=== PATIENT | female | born 1995 | race Caucasian/White ===

== ENCOUNTER → 2021-03-26 08:41 | Outpatient (CLI) | payer OTHER, SELFPAY | PROVIDERS: PCP Family Medicine; Visit Provider Family Medicine | DX: U07.1 COVID-19 (principal) | CPT/HCPCS: 87635; U0005; U0003 ==

== ENCOUNTER → 2022-09-13 | Outpatient (CLI) | payer BC, SELFPAY ==
[2022-09-13 10:44] LABS: Absolute Lymphocyte Count 1.93 X10^3/uL (0.83-4.51); Absolute Neutrophil Count 6.4 X10^3/uL (2.0-7.7); Basophil# 0.04 X10^3/uL; Basophil% 0.4 % (0-1); Eosinophil# 0.02 X10^3/uL; Eosinophils% 0.2 % (0-5); Hematocrit 42.7 % (37-47); Hemoglobin 14.1 g/dL (12.0-15.0); Lymphocyte # 1.93 X10^3/ul (0.83-4.51); Lymphocyte % 21.7 % (19-41); Mean Corpuscular Hgb 28.8 pg (27.0-32.0); Mean Corpuscular Volume 87.1 fL (81-99); Mean Platelet Vol. 9.8 fl (6.2-12.0); Monocyte# 0.55 X10^3/uL; Monocyte% 6.2 % (0-10); NRBC Flagged by Analyzer 0 % (0-5); Neutrophil # 6.35 X10^3/uL (2.7-7.7); Neutrophil % 71.3 % (47-70); Platelet Count 294 K/mm3 (150-450); RBC Distribution Width CV 12.7 % (11.6-14.6); RBC Distribution Width SD 40.3 fl (35.1-43.9); White Blood Count 8.9 K/mm3 (4.4-11.0)
[2022-09-13 12:26] LABS: HIV - WCH Non-Reactive (Nonreactive); Hepatitis B Surface Antigen Non-Reactive (Nonreactive); Hepatitis C Antibody Non-Reactive (Nonreactive); Rubella IgG Reactive (Nonreactive); Syphilis Antibodies Non-reactive
[2022-09-14 22:07] LABS: Chlamydia By Nucleic Acid AMP Negative (Negative)
[2022-09-15 09:39] LABS: Gonococcus By Nucleic Acid AMP Negative (Negative)
[2022-09-21 16:31] LABS: HPV Reflexed? NOT INDICATED
== END | disposition home or self-care (01) ==
PROVIDERS: PCP Family Medicine; Referring Provider Obstetrics & Gynecology; Visit Provider Obstetrics & Gynecology
DX: O09.90 Supervision of high risk pregnancy, unspecified, unspecified trimester (principal)
CPT/HCPCS: 36415; 85025; 86703; 86762; 86780; 86803; 86850; 86900; 86901; 87086; 87088; 87340; 87491; 87591; 88175; G0145

== ENCOUNTER → 2022-11-17 | Outpatient (CLI) | payer BC, SELFPAY ==
--- NOTE | 2022-11-17 08:03 | US_ITS ---
STUDY: SECOND AND THIRD TRIMESTER OBSTETRICAL ULTRASOUND REASON FOR EXAM: Female, 27 years old anatomy LMP: July 06, 2022. TECHNIQUE: Transabdominal and Transvaginal TECHNICAL QUALITY: Adequate. PRIOR ULTRASOUND: None. FINDINGS: There is a single intrauterine fetus. The fetus is in a cephalic presentation. There is demonstrated cardiac activity with a heart rate of 143 bpm. There is a normal amniotic fluid volume. The largest amniotic fluid pocket measures 6.5 cm x 3.4 cm. The amniotic fluid index (ALEXI) is within normal limits. The placenta is anterior in location and is not low lying. Marginal cord insertion. 1 cm from the placental edge. There are Grade 0 placental changes. The cervix measures 3.5 cm in length. The bilateral adnexal regions are normal. BIOMETRY: BPD: 4.1 cm: 18 weeks, 3 days HC: 15 cm: 18 weeks, 1 days AC: 13.2 cm: 18 weeks, 5 days FL: 2.8 cm: 18 weeks, 3 days CI: 80% FL/BPD: 67% FL/HC: FL/AC: 21% HC/AC: 1.14 age by current US: 18 weeks, 2 days. TRISTIAN by current US: April 18, 2023. Estimated weight: 246 grams, +/- 37 grams, 16 %. Age by LMP: 19 weeks, 1 days. TRISTIAN by LMP: April 12, 2023. ANATOMY: Gender: Indeterminant Cranium: Normal lateral ventricles. Normal choroid plexus. Normal cerebellum. Normal cisterna magna. Normal face, nose and lips. Chest: Normal 4-chamber heart. Abdomen/Pelvis: Normal diaphragm. Normal stomach. Normal abdominal wall. Normal cord insertion. Normal 3 vessel cord. Normal kidneys. Normal bladder. Spine: Normal cervical spine. Normal thoracic spine. Normal lumbar spine. Normal sacrum. Extremities: Normal bilateral upper extremities. Normal bilateral lower extremities. US/OB Anatomy Scan IMPRESSION: Single live uterine gestation with a mean gestational age of 18 weeks and 2 days. Marginal cord insertion. The cord is at 1 cm from the placental edge. Electronically Signed: Wes Wall MD at 9:54 EDT ,
== END | disposition home or self-care (01) ==
PROVIDERS: PCP Family Medicine; Referring Provider Nurse Practitioner Women's Health; Visit Provider Nurse Practitioner Women's Health
DX: Z34.92 Encounter for supervision of normal pregnancy, unspecified, second trimester (principal); Z3A.20 20 weeks gestation of pregnancy
CPT/HCPCS: 76805; 76817

== ENCOUNTER → 2023-01-13 | Outpatient (CLI) | payer BC, SELFPAY ==
[2023-01-13 09:04] LABS: Absolute Lymphocyte Count 1.64 X10^3/uL (0.83-4.51); Absolute Neutrophil Count 7.8 X10^3/uL (2.0-7.7); Basophil# 0.03 X10^3/uL; Basophil% 0.3 % (0-1); Eosinophil# 0.06 X10^3/uL; Eosinophils% 0.6 % (0-5); Hematocrit 33.2 % (37-47); Hemoglobin 11.2 g/dL (12.0-15.0); Lymphocyte # 1.64 X10^3/ul (0.83-4.51); Lymphocyte % 16.1 % (19-41); Mean Corp Hgb Conc 33.7 g/dL (32-36); Mean Corpuscular Hgb 30.6 pg (27.0-32.0); Mean Corpuscular Volume 90.7 fL (81-99); Mean Platelet Vol. 10.3 fl (6.2-12.0); Monocyte# 0.64 X10^3/uL; Monocyte% 6.3 % (0-10); NRBC Flagged by Analyzer 0 % (0-5); Neutrophil # 7.78 X10^3/uL (2.7-7.7); Neutrophil % 76.3 % (47-70); Platelet Count 205 K/mm3 (150-450); RBC Distribution Width CV 14.3 % (11.6-14.6); RBC Distribution Width SD 47.4 fl (35.1-43.9); Red Blood Count 3.66 M/mm3 (4.2-5.4); White Blood Count 10.2 K/mm3 (4.4-11.0)
[2023-01-13 09:28] LABS: Glucose Challenge Gest 1H 50g 106 mg/dL (70-140)
[2023-01-13 10:01] LABS: HIV - WCH Non-Reactive (Nonreactive); Syphilis Antibodies Non-reactive
== END | disposition home or self-care (01) ==
PROVIDERS: Referring Provider Advanced Practice Midwife; Visit Provider Advanced Practice Midwife
DX: O09.90 Supervision of high risk pregnancy, unspecified, unspecified trimester (principal); Z3A.00 Weeks of gestation of pregnancy not specified; Z13.1 Encounter for screening for diabetes mellitus
CPT/HCPCS: 36415; 82950; 85025; 86703; 86780

== ENCOUNTER → 2023-01-27 | Outpatient (CLI) | payer BC, SELFPAY ==
--- NOTE | 2023-01-27 07:58 | US_ITS ---
STUDY: SECOND AND THIRD TRIMESTER OBSTETRICAL ULTRASOUND - LIMITED REASON FOR EXAM: Female, 27 years old growth LMP: July 06, 2022. PRIOR ULTRASOUND: Comparison is made with prior study dated November 17, 2022. TECHNIQUE: Transabdominal TECHNICAL QUALITY: Adequate. FINDINGS: There is a single intrauterine fetus. The fetus is in a cephalic presentation. There is demonstrated cardiac activity with a heart rate of 147 bpm. There is a normal amniotic fluid volume. The largest amniotic fluid pocket measures 6.0 cm. The amniotic fluid index (ALEXI) is 18.4 cm. The placenta is anterior in location and is not low lying. The placental cord insertion is less than 2 cm from the edge of the placenta. There are Grade 0 placental changes. The cervix measures 3.4 cm in length. BIOMETRY: BPD: 7.1 cm: 28 weeks, 4 days HC: 26.3 cm: 28 weeks, 4 days AC: 24.8 cm: 29 weeks, 0 days FL: 5.4 cm: 28 weeks, 5 days Age by LMP: 29 weeks, 2 days. TRISTIAN by LMP: April 12, 2023. age by prior US: 28 weeks, 3 days. TRISTIAN by prior US: April 18, 2023. age by current US: 28 weeks, 4 days. TRISTIAN by current US: April 17, 2023. Estimated weight: 1311 grams, +/- 147 grams, 26.5 percentile. US/OB Limited With Biometrics IMPRESSION: Single live intrauterine gestation with mean gestational age of 28 weeks and 3 days. The measurements obtained today following the normal expected range. The placental cord insertion is between 1.4 and 1.9 cm from the placental edge. Electronically Signed: Wes Wall MD at 11:29 EDT ,
== END | disposition home or self-care (01) ==
LOC: OPUS 07:57
PROVIDERS: PCP Family Medicine; Referring Provider Nurse Practitioner Women's Health; Visit Provider Nurse Practitioner Women's Health
DX: O09.90 Supervision of high risk pregnancy, unspecified, unspecified trimester (principal); Z3A.00 Weeks of gestation of pregnancy not specified
CPT/HCPCS: 76816

== ENCOUNTER → 2023-02-28 | Outpatient (CLI) | payer BC, SELFPAY ==
--- NOTE | 2023-02-28 08:02 | US_ITS ---
STUDY: SECOND AND THIRD TRIMESTER OBSTETRICAL ULTRASOUND - LIMITED REASON FOR EXAM: Female, 27 years old growth -- Marginal INSERT- LESS THAN 2 CM FROM EDGE LMP: July 06, 2022. PRIOR ULTRASOUND: Comparison is made with prior study January 27, 2023. TECHNIQUE: Transabdominal TECHNICAL QUALITY: Adequate. FINDINGS: There is a single intrauterine fetus. The fetus is in a cephalic presentation. There is demonstrated cardiac activity with a heart rate of 136 bpm. There is a normal amniotic fluid volume. The largest amniotic fluid pocket measures 5.9 cm x 7.2 cm. The amniotic fluid index (ALEXI) is 18.9 cm. The placenta is anterior in location and is not low lying. There are Grade 1 placental changes. The cervix measures 3.8 cm in length. The umbilical cord inserts less than 2 cm from the edge of the placenta. BIOMETRY: BPD: 8.2 cm: 33 weeks, 0 days HC: 29.95 cm: 33 weeks, 1 days AC: 29.25 cm: 33 weeks, 2 days FL: 6.3 cm: 32 weeks, 4 days Age by LMP: 33 weeks, 6 days. TRISTIAN by LMP: April 12, 2023. age by prior US: 33 weeks, 1 days. TRISTIAN by prior US: April 17, 2023. age by current US: 32 weeks, 5 days. TRISTIAN by current US: April 20, 2023. Estimated weight: 2128 grams, +/- 319 grams, 24.2 percentile. US/OB Limited With Biometrics IMPRESSION: Single live uterine gestation with a mean gestational age of 33 weeks and 1 day. The measurements obtained today following within the normal expected range. The umbilical cord insertion is less than 2 cm from the placental edge. Electronically Signed: Wes Wall MD at 14:51 EDT ,
== END | disposition home or self-care (01) ==
PROVIDERS: PCP Family Medicine; Referring Provider Nurse Practitioner Women's Health; Visit Provider Nurse Practitioner Women's Health
DX: O09.90 Supervision of high risk pregnancy, unspecified, unspecified trimester (principal); Z3A.00 Weeks of gestation of pregnancy not specified
CPT/HCPCS: 76816

== ENCOUNTER → 2023-03-25 | Outpatient (CLI) | payer BC, SELFPAY | END | disposition home or self-care (01) | LOC: LABSPEC 11:19 | PROVIDERS: PCP Family Medicine; Referring Provider Advanced Practice Midwife; Visit Provider Advanced Practice Midwife | DX: O09.90 Supervision of high risk pregnancy, unspecified, unspecified trimester (principal); Z3A.00 Weeks of gestation of pregnancy not specified | CPT/HCPCS: 87081 ==

== ENCOUNTER → 2023-03-28 | Outpatient (CLI) | payer BC, SELFPAY ==
--- NOTE | 2023-03-28 08:02 | US_ITS ---
INDICATION: growth COMPARISON: 02/28/2023 OB ultrasound. FINDINGS: 63 grayscale ultrasound images demonstrate single live intrauterine in cephalic presentation measuring at 37 weeks +0 days average ultrasound age. Estimated weight 3274 g, 56th percentile. heart rate 143 bpm. Adequate amniotic fluid for gestational age, ALEXI 15 cm. Deepest vertical pocket 6.7 cm. Technologist notes placental cord insertion 1.5 cm from placental margin. Anterior placenta is otherwise unremarkable for gestational age. Uterine myometrium is unremarkable. Uterine cervix is not well visualized. Bilateral ovaries are not visualized. No significant free fluid. US/OB Limited With Biometrics IMPRESSION: Single live intrauterine in cephalic presentation measuring at 37 weeks +0 days average ultrasound age. Estimated weight 3274 g, 56th percentile. Marginal cord insertion again noted as above. Electronically Signed: Costa Lara MD at 23:27 EDT ,
== END | disposition home or self-care (01) ==
LOC: US 08:01
PROVIDERS: PCP Family Medicine; Referring Provider Advanced Practice Midwife; Visit Provider Advanced Practice Midwife
DX: O09.90 Supervision of high risk pregnancy, unspecified, unspecified trimester (principal); Z3A.00 Weeks of gestation of pregnancy not specified
CPT/HCPCS: 76816

== ENCOUNTER 2023-04-19 07:00 | Inpatient (IN) | payer BC, SELFPAY ==
[2023-04-19] VITALS (63 sets, daily range): BP systolic 113–138; BP diastolic 62–88; PULSE 71–141; RESP 15; TEMP 36.2–37.8; O2SAT 96–100; BMI 37.7
[2023-04-19] MEDS: Lactated Ringers 1,000 ML 50 ML IV (07:55)
[2023-04-19] MEDS: Oxytocin 15 Units/NS 250ml 15 UNITS/250 ML IV.SOLN 2 UNITS IV (08:02)
[2023-04-19 08:09] LABS: Absolute Lymphocyte Count 2.21 X10^3/uL (0.83-4.51); Absolute Neutrophil Count 8.4 X10^3/uL (2.0-7.7); Basophil# 0.04 X10^3/uL; Basophil% 0.3 % (0-1); Eosinophil# 0.07 X10^3/uL; Eosinophils% 0.6 % (0-5); Hematocrit 33.4 % (37-47); Hemoglobin 10.8 g/dL (12.0-15.0); Lymphocyte # 2.21 X10^3/ul (0.83-4.51); Lymphocyte % 19.2 % (19-41); Mean Corp Hgb Conc 32.3 g/dL (32-36); Mean Corpuscular Hgb 28.2 pg (27.0-32.0); Mean Corpuscular Volume 87.2 fL (81-99); Mean Platelet Vol. 11.2 fl (6.2-12.0); Monocyte# 0.69 X10^3/uL; NRBC Flagged by Analyzer 0 % (0-5); Neutrophil # 8.41 X10^3/uL (2.7-7.7); Neutrophil % 73.3 % (47-70); Platelet Count 237 K/mm3 (150-450); Red Blood Count 3.83 M/mm3 (4.2-5.4); White Blood Count 11.5 K/mm3 (4.4-11.0)
[2023-04-19 08:47] LABS: Syphilis Antibodies Non-reactive
--- NOTE | 2023-04-19 09:15 | HP.PCM.OB_ITS ---
HPI - General General Date of Admission: 04/19/23 Date of Service: 04/19/23 HPI Narrative AMRIT LARA, is a 27 F 41.0 weeks who presents for induction of labor for 41.0 week gestation Maternal Data Information TRISTIAN Calculator Estimated Delivery Date Method Current WG Current Estimate 04/12/23 LMP (Certain) 41w 0d Final TRISTIAN: 04/12/23 Final TRISTIAN Source: US >20 weeks Gestational age: 41.0 PFSH PFSH Medical History (Updated 04/19/23 @ 09:17 by Savana Baumann CNM) Anxiety Depression Headache Home Medications vitamin#30 30 mg iron-10 mg iron-folic acid 1 mg-omg3 capsule 1 cap PO .QD 02/08/23 [History Last Taken 04/19/23 06:00] famotidine 20 mg tablet (Pepcid AC) 20 mg PO DAILY heartburn 04/19/23 [History Last Taken 04/18/23 21:00] loratadine 10 mg tablet (Claritin) 10 mg PO DAILY enviromental allergies 04/19/23 [History Last Taken 04/18/23 21:00] Allergy/AdvReac Type Severity Reaction Status Date / Time amoxicillin Allergy Mild Hives Verified 04/19/23 07:32 sulfamethoxazole Allergy Mild Hives Verified 04/19/23 07:32 [From Bactrim] trimethoprim [From Bactrim] Allergy Mild Hives Verified 04/19/23 07:32 Penicillins Allergy Hives Verified 04/19/23 07:32 Family History Grandmother Breast cancer, Onset Age: 60 Mother Diabetes Grandfather Cancer Surgical History (Updated 04/19/23 @ 08:25 by Mary Ivey) History of surgery Social History adopted: No household members: spouse current occupational status: employed current occupation: [employer] current occupational exposures/hazards: No pets and animals: Yes pets and animals: dog(s) history of recent travel: Yes ([place]) out of state: Yes sexually active: Yes Smoking Status: Never smoker alcohol intake: never substance use type: does not use caffeine: Yes Type: coffee Number of servings: 1 seatbelt use: always do you feel safe at home: Yes additional social history: Spouse- Barrington- Construction History 1 Elective abortions Hx Para 0 Spontaneous abortions Hx # Term Pregnancies Ectopic pregnancies Hx # Pregnancies Multiple births # of living children Visit Details Expected Delivery Route/Plan Labor Preferences- CB/BF classes: encourage labor support person: [place] labor intervention preferences: [] pain management options preferred: limited soft mud molder Precious cut cord/dad catch: yes : yes PP control planned: discussed discussed possible routes of delivery and associated risks: [] special requests: [] Plans Covid status: discussed Flu vaccine: discussed Tdap vaccine: given Rhogam: na LARC form signed: yes movement and labor precautions reviewed. Problem list reviewed and updated with the most current plan of care details and appropriate orders placed. Relevant counseling for the gestational age provided. Continue routine care and follow up unless otherwise noted in visit notes/problem list details OB Flowsheet Initial Weight: Not Recorded Date -?-?-?-?-?-?-?-?-?-?-?-?- EGA Weight BP Urine Prot -?-?-?-?-?-?-?-?-?-?-?-?- Glucose FHR FuHt Pres Dilation -?-?-?-?-?-?-?-?-?-?-?-?- Effaced St Visit Note 09/13/22 -?-?-?-?-?-?-?-?-?-?-?-?- 9w 6d 191 lb 6 oz 131/86 -?-?-?-?-?-?-?-?-?-?-?-?- 160 -?-?-?-?-?-?-?-?-?-?-?-?- SM- CRL SM- CRL 2.2cm cons with LMP 10/13/22 -?-?-?-?-?-?--?-?-?-?-?-?- 14w 1d 186 lb 4 oz 122/76 Nega tive -?-?-?-?-?-?-?-?-?-?-?-?- Negative 153 -?-?-?-?-?-?-?-?-?-?-?-?- MH-NO VB. Nausea is lessening. Reviewed PN labs 11/10/22 -?-?-?-?-?-?-?-?-?-?-?-?- 18w 1d 187 lb 8 oz 122/79 Nega tive -?-?-?-?-?-?-?-?-?-?-?-?- Negative 150 -?-?-?-?-?-?-?-?-?-?-?-?- JV- no lof, vagi nal bleeding, or cramping + FM. has anatomy scan on11/17. 12/08/22 -?-?-?-?-?-?-?-?-?-?-?-?- 22w 1d 192 lb 110/70 Trace -?-?-?-?-?-?-?-?-?-?-?-?- Negative 150 22 -?-?-?-?-?-?-?-?-?-?-?-?- kw- +fm, no vb/c ramping. 28 week labs and US discussed and ordered. 01/05/23 -?-?-?-?-?-?-?-?-?-?-?-?- 26w 1d 199 lb 8 oz 108/73 Trac e -?-?-?-?-?-?-?-?-?-?-?-?- Negative 141 27 -?-?-?-?-?-?-?-?-?-?-?-?- JV- pt suffering with constipation. she stopped taking iron. Has a lot of sciatic nerve pain. exercises discussed. Dr. Castle info sent. encouraged miralax, fluids, dried figs and apple juice. Gct in 2 weeks. 01/18/23 -?-?-?-?-?-?-?-?-?-?-?-?- 28w 0d 205 lb 110/76 Negative -?-?-?-?-?-?-?-?-?-?-?-?- Negative 146 28 -?-?-?-?-?-?-?-?-?-?-?-?- MH-No VB, LOF. G ood FM. Feeling better overall. Nl 28 wk labs, Larc. Considering tdap. Will start Q4wk growth US for marginal cord insertion. 02/02/23 -?-?-?-?-?-?-?-?-?-?-?-?- 30w 1d 208 lb 4 oz 115/77 Nega tive -?-?-?-?-?-?-?-?-?-?-?-?- Negative 150 30 -?-?-?-?-?-?-?-?-?-?-?-?- JV- no lof, vagi nal bleeding, or dec fm. pt is unsure about tdap. questions about going to [place] at 36 weeks. has baby shower this weekend. 02/15/23 -?-?-?-?-?-?-?-?-?-?-?-?- 32w 0d 212 lb 4 oz 120/82 Nega tive -?-?-?-?-?-?-?-?-?-?-?-?- Negative 142 31 -?-?-?-?-?-?-?-?-?-?-?-?- MH-No VB, LOF. G ood FM. Discussed/reassured concerning twice heart palp while sitting, resolved w movement. 03/03/23 -?-?-?-?-?-?-?-?-?-?-?-?- 34w 2d 216 lb 114/72 Negative -?-?-?-?-?-?-?-?-?-?-?-?- Negative 140 34 -?-?-?-?-?-?-?-?-?-?-?-?- SM- no vb lof go od fm no regular ctx discussed labor support, gave preferences worksheet 03/14/23 -?-?-?-?-?-?-?-?-?-?-?-?- 35w 6d 221 lb 6 oz 110/74 Nega tive -?-?-?-?-?-?-?-?-?-?-?-?- Negative 140 36 -?-?-?-?-?-?-?-?-?-?-?-?- SM- no vb lof go od fm noregular ctx 03/25/23 -?-?-?-?-?-?-?-?-?-?-?-?- 37w 3d 225 lb 122/79 Negative -?-?-?-?-?-?-?-?-?-?-?-?- Negative 135 38 -?-?-?-?-?-?-?-?-?-?-?-?- kw-no vb/lof/ctx . good fm. GBS today. deferred VE today. 03/30/23 -?-?-?-?-?-?-?-?-?-?-?-?- 38w 1d 228 lb 2 oz 113/78 Nega tive -?-?-?-?-?-?-?-?-?-?-?-?- Negative 145 37 -?-?-?-?-?-?-?-?-?-?-?-?- JV- no lof ,vagi nal bleeding, or dec fm. [id number]%, normal ALEXI 2 days ago. marginal insertion 1.5 cm. we discussed uterine massage and low tension on cord at delivery 04/07/23 -?-?-?-?-?-?-?-?-?-?-?-?- 39w 2d 231 lb 4 oz 124/93 135/88 Negative -?-?-?-?-?-?-?-?-?-?-?-?- Negative 140 39 Cephalic 1 .5 -?-?-?-?-?-?-?-?-?-?-?-?- 50 -2 SM- no vb lof good fm no regular ctx reveiwed preeclampsia precautions some intermittent BUSTILLOS but goes away 04/12/23 -?-?-?-?-?-?-?-?-?-?-?-?- 40w 0d 229 lb 6 oz 131/84 Nega tive -?-?-?-?-?-?-?-?-?-?-?-?- Negative 144 Cephalic 3 -?-?-?-?-?-?-?-?-?-?-?-?- 50 -2 MH:No VB, LOF. Some cramping, no regular CTX. Dec FM:reactive NST 04/15/23 -?-?-?-?-?-?-?-?-?-?-?-?- 40w 3d 233 lb 4 oz 130/82 Nega tive -?-?-?-?-?-?-?-?-?-?-?-?- Negative 145 40 Cephalic 3 -?-?-?-?-?-?-?-?-?-?-?-?- 60 -2 KW- no vb/ lof/ctx. good fm. membranes swept. IOL set up NST FHR Rate Baby A Baseline: 140 Variability:: Moderate Accelerations:: 15 x 15 Decelerations:: None NST Reactive:: Yes FHR Category:: Category I Uterine Activity:: irregular ROS Constitutional Constitutional: Denies change in weight, fatigue, fever(s), headache(s), poor appetite or weakness Eyes Eyes: Denies blurry vision, change in vision, floaters, seeing flashes or spots in vision ENT HEENT: Denies dizziness, headache(s), loss taste/smell or sore throat Cardiovascular Cardiovascular: Denies chest pain, dizziness, dyspnea, irregular heart rhythm, lightheadedness, palpitations or rapid heart rate Respiratory/Chest Respiratory/Chest: Denies change in mental status, chest tightness, cough, dyspnea or breast pain Gastrointestinal Gastrointestinal: Denies anorexia, chewing difficulty, constipation, diarrhea or weight changes Genitourinary Genitourinary: Denies difficulty urinating, dysuria, flank pain, genital pain, urinary frequency or urinary urgency Musculoskeletal Musculoskeletal: Denies back pain, difficulty walking, extremity pain, joint pain, muscle cramps or muscle weakness Integumentary Integumentary: Denies lesions or unusual bruising Neurologic Neurologic: Denies abnormal movements, abnormal speech, dizziness, numbness, seizure-like activity, syncope or weakness Psychiatric Psychiatric: Denies behavioral changes, change in appetite, confusion, depression, homicidal ideation, suicidal ideation or suicidal thoughts Endocrine Endocrinology: Denies excessive sweating, polydipsia or polyuria Hematologic/Lymphatic Hematologic/Lymphatic: Denies anemia Allergic/Immunologic Allergic/Immunologic: Denies itchy eyes, lip swelling, throat swelling, tongue swelling or wheezing Vital Signs Vital Signs Vital Signs: 04/19/23 07:45 04/19/23 07:45 04/19/23 08:55 Temperature Temperature Source Pulse Rate 108 H Blood Pressure 128/80 H 128/80 H BP Systolic 128 128 BP Diastolic 80 80 Pulse Ox 04/19/23 08:55 04/19/23 08:55 04/19/23 08:55 Temperature Temperature Source Temporal Pulse Rate 91 Blood Pressure BP Systolic BP Diastolic Pulse Ox 98 04/19/23 08:55 Temperature 98.4 F Temperature Source Pulse Rate Blood Pressure BP Systolic BP Diastolic Pulse Ox Weight Weight: 233 lb 11.04 oz Body Mass Index (BMI) 37.7 Physical Exam Const alert, oriented x3 and no apparent distress General Appearance: cooperative Orientation / Consciousness: awake HEENT normocephalic Neck full ROM Lymph Lymphatic: no lymphadenopathy noted Chest inspection of chest normal Resp normal respiratory effort and normal air movement Effort and Inspection: able to speak in complete sentences and symmetric chest movement GI soft to palpation and non-tender Inspection: gravid Palpation: soft; Negative for tender external exam normal Back/Spine normal to inspection Extremity normal to inspection and full ROM Skin no rashes or lesions noted Psych mental status grossly normal Appearance: grossly normal Speech: normal speech Labs Labs Labs: 2 Blood Type A POSITIVE Antibody Screen NEGATIVE Hct 33.4 % (37-47) L Hgb 10.8 g/dL (12.0-15.0) L Obstetrics Ultrasound Syphilis Total Ab Non-reactive Rubella IgG Antibody Reactive (Nonreactive) Hep Bs Antigen Non-Reactive (Nonreactive) Hepatitis C Antibody Non-Reactive (Nonreactive) Chlamydia DNA (DAVID) Negative (Negative) N.gonorrhoeae DNA (DAVID) Negative (Negative) HIV 1&2 Antibody Non-Reactive (Nonreactive) Glucose 1 Hr 50 gm 106 mg/dL (70-140) Assessment & Plan (1) Encounter for induction of labor: PLAN: Patient presents IOL, plan management for with pitocin/AROM. Pain management: plans epidural. GBS negative. Management of any complications: none I have reviewed the [facility] and made any clinically relevant updates.
[2023-04-19] MEDS: LACTATED RINGERS 500 ML 999 ML IV ×3 (13:01→23:15)
[2023-04-19] MEDS: fentaNYL-bupivacaine (epidural) 100 ML BAG EPIDURAL (14:30)
--- NOTE | 2023-04-19 15:41 | PCM.PN.BLA ---
Progress Note comfortable with epidural current tracing: FHT: 135 Moderate variability reactive occasional variables and early decelerations category II tracing [place]: 3-5 Contractions Membranes: Ruptured, meconium stained fluid SVE: 6/-1 A/P: Continue with position changes Titrate pitocin per protocol Epidural per anesthesia Anticipate Dr Jama aware of plan and agrees with plan of care Assessment & Plan Assessment/Plan (1) Encounter for induction of labor: (2) Marginal insertion of umbilical cord: (3) History of trauma: (4) Supervision of high risk , antepartum: (5) : QUALIFIERS: Weeks of gestation: 40 weeks Qualified Code(s): Z3A.40 - 40 weeks gestation of Multi Select Codes Urinary/Genital Urinary/Genital CPT Codes: No Charge
[2023-04-19] MEDS: Lactated Ringers 1,000 ML 200 ML IV (18:53)
--- NOTE | 2023-04-19 19:41 | EX.PCM.OBRPT ---
Assessment & Plan (1) Vaginal delivery: COMMENT: KW IOL 41.0 Girl (2) Marginal insertion of umbilical cord: COMMENT: Growth US Q4wk: 01/26 26%; 02/28:24%; 03/28:56% (3) History of trauma: COMMENT: [id number] not on medications (4) Supervision of high risk , antepartum: COMMENT: [id number] TRISTIAN 04/12/23, surprise Spouse Bar[place] (5) : QUALIFIERS: Weeks of gestation: 40 weeks Qualified Code(s): Z3A.40 - 40 weeks gestation of COMMENT: GBS neg,Declined NIPT and carrier and ntd screening. nl anatomy. Maternal Data Information TRISTIAN Calculator Estimated Delivery Date Method Current WG Current Estimate 04/12/23 LMP (Certain) 41w 0d Final TRISTIAN: 04/12/23 Final TRISTIAN Source: US >20 weeks Gestational age: 41.0 Vaginal Delivery Maternal Presentation Maternal Presentation: Medically Indicated Induction Maternal Presentation: Progressed well to 10cm dilated and made steady progress with effective maternal pushing. Variables noted with pushing. Collaborated with Dr Jama via phone and she viewed strip from home. Recommended episiotomy to expedite delivery. Nursery and Ped in room for light mec stained fluid. Small right mediolateral episiotomy made and the head delivered in JOHANNA presentation. The head was delivered atraumatically and no nuchal cord was identified . The anterior and posterior shoulders delivered without complication followed by the rest of the infant and the was placed on the maternal abdomen. Infant was vigorous and delayed cord clamping was employed for approximately 3 minutes. Cord was clamped and cut and gentle traction was applied to the cord and the placenta delivered spontaneously. Immediately following, it was noted to be intact with a 3 vessel cord. The perineum and vagina were inspected and noted to have a second degree laceration with right mediolateral episiotomy which was repaired with 3-0 Vicryl in the usual fashion. EBL was 150cc. Patient and tolerated delivery well. Apgars 8/9. Dr Jama notified of vaginal delivery and orders reviewed. Physician agrees with current plan of care. Type of Induction: Pitocin Medical Reason for Induction: Post term Operative Information Date of Procedure: 04/19/23 Pre-Operative Diagnosis: See AP comments Post-Operative Diagnosis: Same Surgery / Procedure Performed: Spontaneous Vaginal Delivery rivet tosser #1: Savana Baumann Type of Anesthesia: Epidural Estimated Blood Loss: 150 Time of Delivery: 19:08 Findings Presentation: JOHANNA Amniotic Membrane Rupture Type: Artificial Amniotic Fluid Description: Lightly stained meconium Placental Delivery Description: Spontaneous Placenta Disposition: [facility] Cord Vessel Description: 3 Vessels Cord Entanglement: None Cord Gases: ABG and VBG A Gender: Female (1 minute): 8 (5 minute): 9 Delayed Cord Clamping: Yes Post Vaginal Delivery Medications Given After Delivery: IV Pitocin Episiotomy Description: Right Mediolateral and 1st degree Laceration: 2nd degree Complication Complications: None Multi Select Codes Urinary/Genital Urinary/Genital CPT Codes: 26499 Vaginal Delivery [facility]
[2023-04-19] MEDS: Oxytocin 15 Units/NS 250ml 15 UNITS/250 ML IV.SOLN 83 UNITS IV (19:50)
[2023-04-19] MEDS: Ibuprofen 600 MG Tablet PO (20:21)
[2023-04-19] MEDS: Benzocaine/Lanolin/Aloe Vera 1 SPRAY EACH TOPICAL (20:21)
[2023-04-19] MEDS: Clindamycin HCl 150 MG Capsule 450 MG PO (20:28)
--- NOTE | 2023-04-19 23:09 | EKGRS_ITS ---
Test Reason : Blood Pressure : / mmHG Vent. Rate : 103 BPM Atrial Rate : 103 BPM P-R Int : 156 ms QRS Dur : 076 ms QT Int : 318 ms P-R-T Axes : 048 067 034 degrees QTc Int : 416 ms Sinus tachycardia Low voltage QRS Cannot rule out Anterior infarct , age undetermined Abnormal ECG When compared with ECG of 19-APR-2023 23:20, MANUAL COMPARISON REQUIRED, DATA IS UNCONFIRMED Confirmed by LARRY BERGMAN, ARETHA ([id number]), editor in chief CHRISTELLE MARROQUIN ([id number]) on 04/25/2023 10:59:38 AM Referred By: Savana Baumann Confirmed By:SHERRIE JUAREZ MD
[2023-04-19] MEDS: Lactated Ringers 1,000 ML 150 ML IV (23:58)
[2023-04-20] VITALS (8 sets, daily range): BP systolic 123–144; BP diastolic 74–83; PULSE 100–134; RESP 15–18; TEMP 36.4–37.1; O2SAT 96–98
[2023-04-20 00:05] LABS: Absolute Lymphocyte Count 1.56 X10^3/uL (0.83-4.51); Absolute Neutrophil Count 10.2 X10^3/uL (2.0-7.7); Basophil# 0.02 X10^3/uL; Basophil% 0.2 % (0-1); Eosinophil# 0.02 X10^3/uL; Eosinophils% 0.2 % (0-5); Hematocrit 29.4 % (37-47); Hemoglobin 9.3 g/dL (12.0-15.0); Lymphocyte # 1.56 X10^3/ul (0.83-4.51); Lymphocyte % 12.4 % (19-41); Mean Corp Hgb Conc 31.6 g/dL (32-36); Mean Corpuscular Hgb 27.8 pg (27.0-32.0); Mean Corpuscular Volume 87.8 fL (81-99); Mean Platelet Vol. 11.2 fl (6.2-12.0); Monocyte% 5.5 % (0-10); NRBC Flagged by Analyzer 0 % (0-5); Neutrophil # 10.23 X10^3/uL (2.7-7.7); Platelet Count 207 K/mm3 (150-450); RBC Distribution Width CV 14.9 % (11.6-14.6); Red Blood Count 3.35 M/mm3 (4.2-5.4); White Blood Count 12.6 K/mm3 (4.4-11.0)
--- NOTE | 2023-04-20 00:07 | CT_ITS ---
STUDY: CTA CHEST REASON FOR EXAM: Female, 27 years old. Vaginal delivery at 7:00 PM. Now with chest pain, shortness breath, elevated heart rate. Evaluate for pulmonary embolus. TECHNIQUE: CT angiogram of chest was performed with the intravenous administration of 100 ml Isovue-370. Post-processing of the angiographic images was performed, with MIP and MPR reconstructions. Individualized dose optimization techniques were used for this CT. COMPARISON: None. FINDINGS: PULMONARY ARTERIES: No pulmonary arterial filling defects identified. There is mild scattered streak artifact. AORTA AND VISUALIZED GREAT VESSELS: No thoracic aortic aneurysm or dissection. Great vessels are patent. HEART AND PERICARDIUM: Heart size within normal limits. No significant pericardial effusion. MEDIASTINUM AND ROSI: No mediastinal or hilar adenopathy. Esophagus is unremarkable. LUNGS, PLEURA AND LARGE AIRWAYS: Clear lungs and patent airways. No pleural effusion or thickening. No pneumothorax. BONES: Intact with no suspicious osseous lesion. CHEST WALL: No chest wall mass or acute findings. VISUALIZED ABDOMEN: Subcentimeter enhancing lesion within right anterior liver. CT/CTA Chest W/WO Contrast IMPRESSION: 1. No pulmonary embolus or acute intrathoracic abnormality. 2. Benign subcentimeter hepatic hemangioma. No additional follow-up recommended at this time. Electronically Signed: Gareth Purvis MD at 1:51 EST ,
[2023-04-20 00:23] LABS: Troponin-I HS 5 pg/mL (3.0-54.0)
--- NOTE | 2023-04-20 00:50 | PCM.CONS.GEN ---
Assessment & Plan Assessment/Plan (1) Near syncope: PLAN: Plan 1. Near syncopal event shortly after delivery likely related to fluid loss -continue lactated ringer bolus and give additional liter of lactated ringer 150 cc/h. In an effort to be thorough we will check a troponin and a follow-up EKG to ensure improvement in her vital signs and her tracings. 2. G1-P1 with patient having a normal vaginal delivery on the evening of 04/19/2023 precipitating #1 - Continue supportive care and monitor for improvement. 3. Depression with anxiety - Stable at this time. 4. DVT prophylaxis - As per [facility] team. Total time: Approximately 55 minutes. HPI Consult Data Date of Consult: 04/20/23 HPI Narrative Reason for Consultation: Hypotension and near syncope with standing after delivery. HPI Narrative: AMRIT LARA, is a 27 F with a past medical history of depression with anxiety and occasional headaches who is a G1-P1 with patient having underwent a vaginal delivery with a healthy baby around 7 PM on the evening of 04/19/2023. Shortly thereafter she tried to stand up and had a near syncopal event with chest pressure and shortness of breath along with a heart rate of ~140 bpm prompting hospitalist consultation. Her EKG showed sinus tachycardia with no obvious acute ischemia and she denied specific chest pain or shortness of breath at rest. She denies a history of similar previous episodes and has no known cardiac history but she does admit to history of coronary artery disease and bypass in her maternal grandfather who was at an advanced age when he was diagnosed. She was already being treated with a 500 cc bolus of lactated Ringer's which was followed by lactated Ringer's 150 cc/h for 1 L with a recheck of her EKG and troponin to ensure there was no acute cardiac disease. She denies associated fever, chills, nausea, vomiting, ambreen syncope or rash - but she does admit to back pain since her delivery and she has numerous antibiotic allergies including penicillins, cephalosporins and trimethoprim sulfamethoxazole (which usually cause a rash on her hands and belly). Her blood type is a positive and her hemoglobin was stable at 9.3 g/dL. Thank you very much for allowing us to participate in the care of your patient. [facility] Medical History Anxiety Depression Headache Home Medications vitamin#30 30 mg iron-10 mg iron-folic acid 1 mg-omg3 capsule 1 cap PO .QD 02/08/23 [History Last Taken 04/19/23 06:00] famotidine 20 mg tablet (Pepcid AC) 20 mg PO DAILY heartburn 04/19/23 [History Last Taken 04/18/23 21:00] loratadine 10 mg tablet (Claritin) 10 mg PO DAILY enviromental allergies 04/19/23 [History Last Taken 04/18/23 21:00] Allergy/AdvReac Type Severity Reaction Status Date / Time amoxicillin Allergy Mild Hives Verified 04/19/23 07:32 sulfamethoxazole Allergy Mild Hives Verified 04/19/23 07:32 [From Bactrim] trimethoprim [From Bactrim] Allergy Mild Hives Verified 04/19/23 07:32 Penicillins Allergy Hives Verified 04/19/23 07:32 Family History Grandmother Breast cancer, Onset Age: 60 Mother Diabetes Grandfather Cancer Surgical History History of surgery Social History adopted: No household members: spouse current occupational status: employed current occupation: [employer] current occupational exposures/hazards: No pets and animals: Yes pets and animals: dog(s) history of recent travel: Yes ([place]) out of state: Yes sexually active: Yes Smoking Status: Never smoker alcohol intake: never substance use type: does not use caffeine: Yes Type: coffee Number of servings: 1 seatbelt use: always do you feel safe at home: Yes additional social history: Spouse- [place]- [employer] ROS ROS Narrative Review of systems: Constitutional: Patient denies fever or chills Eyes: Patient denies visual changes ENT: Patient denies dysphagia or sore throat Cardiovascular: Patient admits to mild intermittent chest discomfort with exertion but none at rest Gastrointestinal: Patient denies nausea or vomiting at this time Musculoskeletal: Patient does admit to back pain that is made worse with movement Genitourinary: Patient denies dysuria or hematuria Neurologic: Patient denies motor or sensory focal neurologic deficits 14 point review systems otherwise negative except for positives noted above in HPI. Physical Exam Const alert, oriented x3, no apparent distress, average body habitus, healthy appearing and well nourished General Appearance: cooperative HEENT normocephalic, head/scalp atraumatic, hearing grossly normal bilaterally, moist oral mucous membranes, oropharynx normal and dentition normal Eyes PERRL, EOMs intact bilaterally and conjunctivae normal Neck no lymphadenopathy, supple, no JVD and no carotid bruits Resp normal respiratory effort, no retractions, no use of accessory muscles and clear to auscultation bilaterally Cardio regular rate, regular rhythm, S1 normal heart sound, S2 normal heart sound, no murmurs, no rub, no gallops, no clicks and no JVD GI normal to inspection, nondistended, normoactive bowel sounds, soft to palpation, non-tender and non-distended Extremity normal to inspection, full ROM and no clubbing, cyanosis or edema Skin Skin Narrative: Patient has no evidence of rash. Neuro oriented x3, CN's II-XII intact bilaterally, moves all extremities, no focal motor deficits and no sensory deficits noted Sensorium / Orientation: awake, alert, oriented to person, oriented to place and oriented to time Speech: speech normal Motor Exam: strength 5/5 throughout Psych affect normal Medical Records Data Attestation: I reviewed the patient's medical records Lab / Micro Data Attestation: I reviewed the patient's lab results. 04/20/23 03:50 04/20/23 03:50 Labs: Laboratory Results - last 24 hr 04/19/23 07:50: WBC 11.5 H, RBC 3.83 L, Hgb 10.8 L, Hct 33.4 L, MCV 87.2, MCH 28.2, MCHC 32.3, RDW Std Deviation 47.0 H, RDW Coeff of Chin 15.0 H, Plt Count 237, MPV 11.2, Immature Gran % (Auto) 0.600, Neut % (Auto) 73.3 H, Lymph % (Auto) 19.2, Hodgeman % (Auto) 6.0, Eos % (Auto) 0.6, Baso % (Auto) 0.3, Absolute Neuts (auto) 8.4 H, Absolute Lymphs (auto) 2.21, Nucleated RBC % 0, Syphilis Total Ab Non-reactive, Blood Type A POSITIVE, Antibody Screen NEGATIVE 04/19/23 23:50: WBC 12.6 H, RBC 3.35 L, Hgb 9.3 L, Hct 29.4 L, MCV 87.8, MCH 27.8, MCHC 31.6 L, RDW Std Deviation 47.0 H, RDW Coeff of Chin 14.9 H, Plt Count 207, MPV 11.2, Immature Gran % (Auto) 0.700, Neut % (Auto) 81.0 H, Lymph % (Auto) 12.4 L, Hodgeman % (Auto) 5.5, Eos % (Auto) 0.2, Baso % (Auto) 0.2, Absolute Neuts (auto) 10.2 H, Absolute Lymphs (auto) 1.56, Nucleated RBC % 0, Troponin I High Sens 5 Charges/Coding Visit Charges Inpatient E&M: 08866 Init Hosp L2
[2023-04-20] MEDS: Ibuprofen 600 MG Tablet PO ×4 (03:01→22:04)
[2023-04-20 04:00] LABS: Absolute Lymphocyte Count 1.94 X10^3/uL (0.83-4.51); Absolute Neutrophil Count 10.2 X10^3/uL (2.0-7.7); Basophil# 0.04 X10^3/uL; Basophil% 0.3 % (0-1); Eosinophil# 0.03 X10^3/uL; Eosinophils% 0.2 % (0-5); Hematocrit 29.1 % (37-47); Hemoglobin 9.2 g/dL (12.0-15.0); Lymphocyte # 1.94 X10^3/ul (0.83-4.51); Lymphocyte % 14.8 % (19-41); Mean Corp Hgb Conc 31.6 g/dL (32-36); Mean Corpuscular Volume 88.4 fL (81-99); Mean Platelet Vol. 11.2 fl (6.2-12.0); Monocyte# 0.83 X10^3/uL; Monocyte% 6.3 % (0-10); NRBC Flagged by Analyzer 0 % (0-5); Neutrophil # 10.17 X10^3/uL (2.7-7.7); Neutrophil % 77.9 % (47-70); Platelet Count 198 K/mm3 (150-450); RBC Distribution Width CV 15.1 % (11.6-14.6); RBC Distribution Width SD 47.8 fl (35.1-43.9); Red Blood Count 3.29 M/mm3 (4.2-5.4); White Blood Count 13.1 K/mm3 (4.4-11.0)
[2023-04-20 04:19] LABS: Anion Gap 7 (5-15); BUN 10 mg/dL (7-18); BUN/Creat Ratio 13.4 RATIO (10-20); Calcium,Total 8.7 mg/dL (8.5-10.1); Chloride 109 mmol/L (98-107); Creatinine, Serum 0.75 mg/dL (0.55-1.02); EST Glomerular Filtration Rate 97 mL/min (>60); Est Glom Filt Rate - Afr Amer 118 mL/min (>60); Estimated Creatinine Clearance 104.54 ml/min; Glucose 97 mg/dL (74-106); Sodium Level 138 mmol/L (136-145)
--- NOTE | 2023-04-20 05:58 | EKGRS_ITS ---
Test Reason : TACHYCARDIA Blood Pressure : / mmHG Vent. Rate : 120 BPM Atrial Rate : 120 BPM P-R Int : 132 ms QRS Dur : 076 ms QT Int : 310 ms P-R-T Axes : 051 088 024 degrees QTc Int : 438 ms Sinus tachycardia Cannot rule out Anterior infarct , age undetermined Abnormal ECG No previous ECGs available Confirmed by LARRY BERGMAN, ARETHA ([id number]), editorial project manager CHRISTELLE MARROQUIN ([id number]) on 04/25/2023 11:00:31 AM Referred By: Savana Baumann Confirmed By:SHERRIE JUAREZ MD
[2023-04-20] MEDS: Clindamycin HCl 150 MG Capsule 450 MG PO ×3 (06:14→22:04)
--- NOTE | 2023-04-20 07:42 | PCM.PN.OB ---
Subjective Subjective Patient doing well without complaints since near syncope last pm. Tolerating PO. Ambulating without dizziness and voiding without difficulty. Feeding well. Denies chest pain, shortness of breath, calf pain/swelling, fevers, chills, lightheadedness. Continues with IV fluids. Objective Data Objective Data Vital Signs: Vital Signs Temp Pulse Resp BP Pulse Ox O2 Del Method 98.7 F 101 H 15 126/81 H 97 Room Air 04/20/23 03:00 04/20/23 06:16 04/20/23 03:00 04/20/23 03:00 04/20/23 03:00 04/20/23 03:00 Oxygen Delivery Method Room Air Weight: 233 lb 11.04 oz Body Mass Index (BMI) 37.7 Intake & Output: Intake and Output for Last 24 Hours 04/18/23 04/19/23 04/20/23 23:59 23:59 23:59 Intake Total 3523.33 / 3523.33 1000 / 1000 Output Total 1580 / 1680 1000 / 1000 Balance 1943.33 / 1843.33 0 / 0 Lab / Micro Data 04/20/23 03:50 04/20/23 03:50 Labs: Laboratory Results - last 24 hr 04/19/23 07:50: WBC 11.5 H, RBC 3.83 L, Hgb 10.8 L, Hct 33.4 L, MCV 87.2, MCH 28.2, MCHC 32.3, RDW Std Deviation 47.0 H, RDW Coeff of Chin 15.0 H, Plt Count 237, MPV 11.2, Immature Gran % (Auto) 0.600, Neut % (Auto) 73.3 H, Lymph % (Auto) 19.2, [place] % (Auto) 6.0, Eos % (Auto) 0.6, Baso % (Auto) 0.3, Absolute Neuts (auto) 8.4 H, Absolute Lymphs (auto) 2.21, Nucleated RBC % 0, Syphilis Total Ab Non-reactive, Blood Type A POSITIVE, Antibody Screen NEGATIVE 04/19/23 23:50: WBC 12.6 H, RBC 3.35 L, Hgb 9.3 L, Hct 29.4 L, MCV 87.8, MCH 27.8, MCHC 31.6 L, RDW Std Deviation 47.0 H, RDW Coeff of Chin 14.9 H, Plt Count 207, MPV 11.2, Immature Gran % (Auto) 0.700, Neut % (Auto) 81.0 H, Lymph % (Auto) 12.4 L, [place] % (Auto) 5.5, Eos % (Auto) 0.2, Baso % (Auto) 0.2, Absolute Neuts (auto) 10.2 H, Absolute Lymphs (auto) 1.56, Nucleated RBC % 0, Troponin I High Sens 5 04/20/23 03:50: WBC 13.1 H, RBC 3.29 L, Hgb 9.2 L, Hct 29.1 L, MCV 88.4, MCH 28.0, MCHC 31.6 L, RDW Std Deviation 47.8 H, RDW Coeff of Chin 15.1 H, Plt Count 198, MPV 11.2, Immature Gran % (Auto) 0.500, Neut % (Auto) 77.9 H, Lymph % (Auto) 14.8 L, [place] % (Auto) 6.3, Eos % (Auto) 0.2, Baso % (Auto) 0.3, Absolute Neuts (auto) 10.2 H, Absolute Lymphs (auto) 1.94, Nucleated RBC % 0, Sodium 138, Potassium 4.0, Chloride 109 H, Carbon Dioxide 22.0, Anion Gap 7, BUN 10, Creatinine 0.75, Estim Creat Clear Calc 104.54, Est GFR (MDRD) Af Amer 118, Est GFR (MDRD) Non-Af 97, BUN/Creatinine Ratio 13.4, Glucose 97, Calcium 8.7 Radiography Diagnostic Testing: Radiology Impression Chest CTA 04/20/23 00:07 IMPRESSION: 1. No pulmonary embolus or acute intrathoracic abnormality. 2. Benign subcentimeter hepatic hemangioma. No additional follow-up recommended at this time. Electronically Signed: Gareth Purvis MD at 1:51 EST , Physical Exam Const alert and oriented x3 HEENT normocephalic Eyes PERRL Neck full ROM Resp normal respiratory effort GI soft to palpation GI Narrative: FF below U Assessment & Plan (1) Vaginal delivery: COMMENT: KW IOL 41.0 Girl (2) Near syncope: COMMENT: stable. Normal labs, CT, EKG (3) Tachycardia with heart rate 100-120 beats per minute: PLAN: Plan s/p PPD # 1 1. routine post delivery care 2. breast feeding- support given 3. rh positive 4. rubella immune 5. will continue to monitor and IV fluids and consult with Dr Parks for further management.
--- NOTE | 2023-04-20 10:04 | PCM.HOSP.N ---
Hospitalist Note Follow-up for chest pain Subjective: Patient feeling well. States that chest pain is doing better. States that she when she got up yesterday she was experiencing chest pain that was midsternal going up into her neck. Did not radiate elsewhere. Vitals: Blood pressure 131/83, pulse 105, respirations 18, temp is 36.6 Exam: Patient resting complaint bed. No respiratory distress. No conversational dyspnea. Nontoxic. Assessment and plan 1. Chest pain: Atypical. Noncardiac, not pulmonary. EKG was reviewed and showed sinus tachycardia without any acute process. CTA of the chest was unremarkable for any pulmonary embolism or infiltrate. No additional work-up is necessary. 2. Leukocytosis: Has been ongoing since the seventh. Likely reactive. She in the absence of any fever would not do any additional work-up at this time. Patient medically stable for discharge. The hospital service will sign off. Please do not hesitate to reconsult if new issues arise. Visit Charges Inpatient E&M: 89604 Subs Hosp L1
[2023-04-20] MEDS: Acetaminophen 500 MG Tablet 1000 MG PO (15:55)
[2023-04-21 02:20] VITALS: BP 118/71; PULSE 90; RESP 14; TEMP 37.4; O2SAT 97
[2023-04-21] MEDS: Clindamycin HCl 150 MG Capsule 450 MG PO (06:21)
[2023-04-21] MEDS: Ibuprofen 600 MG Tablet PO (06:29)
--- NOTE | 2023-04-21 07:37 | PCM.PN.OB ---
Subjective Subjective Patient doing well without complaints. Tolerating PO. Ambulating and voiding without difficulty. Feeding well. Denies chest pain, shortness of breath, calf pain/swelling, fevers, chills, lightheadedness. Objective Data Objective Data Vital Signs: Vital Signs Temp Pulse Resp BP Pulse Ox O2 Del Method 99.4 F H 90 14 118/71 97 Room Air 04/21/23 02:20 04/21/23 02:20 04/21/23 02:20 04/21/23 02:20 04/21/23 02:20 04/21/23 02:20 Oxygen Delivery Method Room Air Weight: 233 lb 11.04 oz Body Mass Index (BMI) 37.7 Intake & Output: Intake and Output for Last 24 Hours 04/19/23 04/20/23 04/21/23 23:59 23:59 23:59 Intake Total 3523.33 / 3523.33 1000 / 1000 Output Total 1580 / 1680 1000 / 1000 Balance 1943.33 / 1843.33 0 / 0 Lab / Micro Data 04/20/23 03:50 04/20/23 03:50 Physical Exam Const alert and oriented x3 HEENT normocephalic Eyes PERRL Neck full ROM Resp normal respiratory effort GI soft to palpation GI Narrative: FF below U Assessment & Plan (1) Vaginal delivery: COMMENT: KW IOL 41.0 Girl Jabier (2) Near syncope: COMMENT: stable. Normal labs, CT, EKG PLAN: Plan s/p PPD # 2 1. routine post delivery care 2. breast feeding- support given 3. rh positive 4. rubella immune 5. home today
[2023-04-21 08:27] VITALS: BP 124/76; PULSE 91; RESP 18; TEMP 36.4; O2SAT 99
--- NOTE | 2023-04-21 11:03 | CASEMGMT ---
Social Work Assessment Labor and Delivery Unit Patient Address: [address] [place] [address] Phone number: [phone] Date of Referral: 04/20/23 Time of Referral:? 243 Referred By: Savana Baumann Date of Intervention: 04/21/23 ?? Time of Intervention:? 929 Reason for Referral:? Hx of anxiety and trauma Debby completed chart review and acknowledges social work consult due to maternal history of anxiety and trauma. Sw presented to bedside and met with mother of baby (FARAZ- Mariluz) and father of baby (FOB- [place]). Sw explained sw role during hospitalization and completed psychosocial assessment. Sw asked FOB to leave momentarily so that MOB could complete an [place] Depression Scale. FOB left room respectfully and returned later. History obtained from: medical records and mother of baby (MOB)?and FOB. ?? Household composition: Currently residing in the home is FARAZ and COSTA, and now baby girl. Parents also have two dogs that family members have been helping with while parents are at the hospital. Parents state that their housing is safe and secure- no concerns. Patient's parent/guardian status: FARAZ states that she and FOOctavio met three years ago and have been for two. Parents were introduced to each other by mutual friends. No concerns regarding domestic violence or intimate partner violence. ? ? Medical History: FARAZ is 27 year old female who is 1, para 0- now 1 following labor and delivery of baby. FARAZ received routine care during with [place]. FARAZ required induction of labor at 41 weeks gestation, baby was born via vaginal delivery. Baby girl, named Jabier Hernandez, was born weighing 7lb 15oz and her apgars were 8 and 9 at one and five minutes of life respectfully. FARAZ is breast feeding and states that it is going well. FARAZ reports that baby will be followed by Dr. Salter for pediatrics. Educational Status:? Both parents graduated from high school. FARAZ obtained her Bachelors degree in [employer] development. COSTA did not attend college. Parents deny any reading, learning or comprehension concerns. Financial Status: Both parents are gainfully employed outside of the home. FOOctavio works in construction and states that he is able to take some time off following the delivery of baby. FARAZ works fort a [employer] and will be taking 6 weeks off of work. MOB states that she is considering not returning to work if is is financially doable. Supplies: Parents state that they have obtained all necessary baby supplies including: car seat, safe sleep space, clothes, diapers, wipes and a breast pump Childcare/Caregiver(s):? FARAZ will be the primary caregiver to baby while she is on maternity leave, along with FOB when he is not working. MOB states that when both parents are working they have several family members and friends who will be able to watch Jabier. Transportation:?? Both parents have valid drivers license and reliable means of transportation. No transportation barriers at this time. Programs/Agencies Involved: ???FARAZ states that they are not connected to any financial community supports at this time. FARAZ reports that she used to be connected to counseling services, but she did not vibe with the therapist so she quit going. Debby provided FARAZ with list of community resources including list of therapist/ counselors in [facility]. Children Services/Legal Issues:???No history of children services involvement, no issues or concerns warranting referral at this time. Behavioral Health Issues: ??Mental Health History:?FOB denies mental health history. FARAZ reports that she has been diagnosed with anxiety, depression and PTSD. MOB states that PTSD was the first diagnosed that she received. FARAZ states that her PTSD comes from the relationship that she had with her mother growing up, as well as the relationship that she still has at this time. FARAZ states that she feels as though that she has raised her mom and to this day is still navigating boundaries with her. FARAZ completed an [place] Depression Scale and her score was a 9. Sw provided education, literature and encouraged FARAZ to get connected to a mental health support person during her journey. ? Substance Use History: FARAZ denies substance use prior to and during .?? Family History:?FARAZ denies family history of addiction, but states that her mom does have mental health history- but she is not diagnosed. ? Drug Screens: No urine screens observed in chart review. ?? Family/Social Stressors:?FARAZ states that her stressors at this time include her mental health history, anticipation of experiencing depression or anxiety, and her strained relationship with her mom. Sw provided active listening, support and encouraged use of appropriate coping skills. Support Systems: FARAZ states that her dad and step mom are supports to her. FOB states that his family is also supportive. FOB states that they have some friends who experienced baby blues/ depression/ anxiety after their baby was born, and he has found it helpful to talk to them about what to expect regarding MOB's journey. Depression/Shaken Baby/Safe Sleeping:? Sw educated MOB and FOB on signs and symptoms of baby blues and depression to be on the lookout for. FOB states that he is familiar with what MOB struggles with and believes that he would be able to recognize when MOB is struggling. MOB and FOB both agree that FOB would know how to provide support and comfort to MOB when she is struggling . Sw educated parents of shaken baby prevention and ABCs of safe sleep. Parents expressed understanding. ASSESSMENT:?MOB and baby are admitted following labor and delivery. MOB with mental health history positive for anxiety, depression and PTSD. MOB aware of signs and symptoms of baby blues and anxiety/ depression to be on the look out for. MOB has strong support found in FOB, and FOB family members. Parents have obtained necessary baby supplies. Recommendation for linkage to counseling supports was received positively by MOB. MOB engaged in counseling in the past, but only for a couple of sessions. MOB and FOB observed to provide safe and loving care to baby. Parents talkative and engaged in assessment. Parents receptive to involvement and support provided by debby. PLAN:? MOB and baby to be discharged when medically ready. ?No other services requested or indicated. Oliver Caldera, [employer] [facility], [facility] [employer]
== END 2023-04-21 13:15 | disposition home or self-care (01) | DRG 807 ==
PROVIDERS: Internal Medicine; Admitting Provider Advanced Practice Midwife; PCP Family Medicine; Referring Provider Advanced Practice Midwife; Visit Provider Advanced Practice Midwife
DX: O48.0 Post-term pregnancy (principal); Z37.0 Single live birth; E86.9 Volume depletion, unspecified; O70.1 Second degree perineal laceration during delivery; O99.285 Endocrine, nutritional and metabolic diseases complicating the puerperium; R07.89 Other chest pain; O99.893 Other specified diseases and conditions complicating puerperium; O76 Abnormality in fetal heart rate and rhythm complicating labor and delivery; R00.0 Tachycardia, unspecified; O77.0 Labor and delivery complicated by meconium in amniotic fluid; Z3A.41 41 weeks gestation of pregnancy
CPT/HCPCS: 59025; 59050; 71275; 80048; 84484; 85025; 86780; 86850; 86900; 86901; 93005; 99221; J7120; Q9967; G0378

== ENCOUNTER 2023-10-07 08:31 | Outpatient (RCR) | payer OTHER, SELFPAY ==
--- NOTE | 2023-10-07 15:25 | HP.PTEVAL_ITS ---
Patient's Visit Information Visit Information Visit Information: AMRIT LARA is a 28 year old F referred to Physical Therapy by Dr. Madhuri Castle DC with a diagnosis of DYSFUNCTION OF LUMBAR AND PELVIC REGIONS. Date of Evaluation: 10/07/23 Physical Therapist: Ghazal Bravo, PT, Cert MDT Visit Plan Frequency: 2-3x /Week Duration: 4-6 Weeks Plan: POSTURE CORRECTION/STRENGTHENING, INSTRUCTION IN APPROPRIATE BODY MECHANICS AND ACTIVITY MODIFICATIONS. DLS STARTING WITH A NEUTRAL SPINE PROGRESSING ROM TOLERATED. EDVIN LE ROM, STRETCHING AND STRENGTHENING. 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 ONE BABY - 6 MONTHS OLD - BREAST FEEDING. Present symptoms: CONSTANT LOW BACK PAIN L>R. INTERMITTENT L LE PAIN, NUMBNESS AND TINGLING TO GREAT AND 5TH TOE. INTERMITTENT L GROIN PAIN. EDVIN ANTERIOR HIP/PELVIC PAIN. Present since: SINCE ABOUT 15 YEARS OLD Pain Scale: WORST 9/10, LEAST 4/10 Currently: 5/10 Is it getting better, worse or staying the same: STAYING THE SAME Commenced as a result of: MARCHING BAND - CARRYING BASE DRUM Symptoms at onset: LOW BACK PAIN Worse: BENDING, WALKING, PICKING THINGS UP, AFTER WORKING OUT, LIFTING Better: NOTHING Disturbed sleep: YES Previous history/Previous treatment: CHIROPRACTIC - ON-GOING - SINCE HS - TEMPORARY RELIEF. ONE EPISODE OF CARE IN PT IN HS - SEEMED TO HELP AT THE TIME. MASSAGE ONCE EVERY 5 WKS WITH BENEFIT USUALLY BUT NOT THE LAST TIME. NO BACK SURGERY. NO KRISTIN'S. NO PRESCRIPTION PAIN MEDICATION. Coughing/sneezing/straining: POSITIVE FOR BACK PAIN Gait: TIME AND DISTANCE LIMITED DUE TO BACK PAIN AND SOMETIMES L LE PAIN. Bowel or Bladder Dysfunction: UI. DENIES BOWEL INCONTINENCE Accidents: NO Unexplained weight loss: NO Imaging: RECENT X-RAY SHOWS SCOLIOSIS PER PATIENT REPORT. PMH/Recent major surgery: PTSD, POSSIBLE POST ANXIETY. OTHER: PATIENT REPORTS SHE IS SEEING NINI PEREZ NP FOR MENTAL HEALTH ISSUES - PAST DX OF PTSD AND POSSIBLE POST AXIETY. STATES SHE WAS PRESCRIBED MEDICATION THAT DIDN'T WORK AND HAS BEEN REFERRED TO A COUNSELOR. SHE PLANS TO DISCUSS DISCUSS PELVIC FLOOR DX AND PT CONSULT WITH HER AT UPCOMING VISIT. IN THE MEAN TIME SHE WOULD LIKE TO START PT FOR HER BACK PAIN. Objective Objective: Sitting/Standing Posture: SCOLIOSIS. Active Correction of posture: NE Other Observations: THIS PATIENT AMBULATES INDEP'LY INTO PT WITHOUT ANY AD'S OR GROSS DEVIATIONS NOTED. SHE IS ABLE TO TRANSFER FROM SIT TO STAND WITHOUT UE ASSIST. Sensory deficit: HYPERSENSATIVITY OF L LE COMPARED TO R WITH LIGHT TOUCH SENSATION TESTING (THIGH, LEG AND FOOT) ROM deficit: EDVIN HIP FLEXOR, HS AND CALF TIGHTNESS. Motor deficit: EDVIN LE STRENGTH GROSSLY 5/5 WITH MMT'ING EXCEPT L HIP 4-/5 AND R HIP 4/5. Reflexes: 1+ EDVIN LE'S. Dural Signs: POSITIVE L LE. NEGATIVE R LE Lumbar mvmt loss: flex - NIL - INCREASES BACK, P L THIGH, LEG, NW ext - MOD - INCREASES BACK, NW R SG - MOD - INCREASES BACK, NW L SG - MOD - NE Core strength: POOR Palpation: TENDERNESS WITH PALPATION OF L2 THROUGH S1 REGIONS AND L PARASPINALS. Balance/Special Test Scores Oswestry Low Back Score: 21 Goals Goal 1:: DECREASE C/O BACK AND L LE SX'S BY AT LEAST 50% TO EASE ADL'S. Goal Time Frame: 4-6 Weeks Goal 2:: PATIENT WILL HAVE INCREASED PAINFREE LUMBAR ROM ALL PLANES TO EASE ADL'S. Goal Time Frame: 4-6 Weeks Goal 3:: PATIENT WILL HAVE INCREASED CORE STENGTH AND STABILITY TO IMPROVE ADL'S. Goal Time Frame: 4-6 Weeks Goal 4:: PATIENT WILL SCORE AT LEAST 5 POINTS BETTER ON BACK OSWESTRY QUESTIONNAIRE Goal Time Frame: 4-6 Weeks Goal 5:: PATIENT WILL BE INDEP WITH A HEP FOR CONTINUED IMPROVEMENT ONCE FORMAL PHYSICAL THERAPY CONCLUDES. Goal Time Frame: 4-6 Weeks Rehabilitation Potential Physical Therapy Diagnosis: THIS PATIENT PRESENTS TO PT WITH CORE WEAKNESS, LE STIFFNESS AND DECREASED PAINFREE LUMBAR ROM LIMITED ADL'S. Rehabilitation Potential: Good Anticipated Interventions Patient/Client Instruction: Educate patient on: Condition, Plan of Care and Risk Factors For the Purpose of:: To improve self management Therapeutic Exercise to Include: Strength training, Body mechanics, Postural training, Flexibilty training, Neuromotor development, In an aquatic setting and Dynamic Lumbar Stabilization For the Purpose of:: To decrease pain, To improve muscle performance and motor function, To increase tolerance to activity/condition/position, To improve ability of physical actions for home/community/work/leisure and To increase flexibility/ROM TENS: Yes IF ES: Yes Cryotherapy (ice pack, ice massage): Yes Thermo therapy (hot pack): Yes Ultrasound (thermal/non thermal): Yes For the Purpose of:: To decrease pain, To decrease swelling/inflammation and To improve nutrient delivery to tissue Text: Thank you for the opportunity to evaluate your patient. For Medicare and Medicare HMO plans, please review the plan of care and approve it. It will need to be FAXED BACK to us at [phone] for Medicare purposes. For Medicare only, by signing this I certify the plan of care. Please let me know if there are questions or concerns regarding this plan of care. Physician Signatu re: Date:
--- NOTE | 2023-10-18 15:57 | HP.PT.NRP ---
Patient Information Patient Information: AMRIT LARA was seen in my office for initial evaluation on 10/07/23. The following Plan of Care was established for this patient: POC Established Initial Frequency: 2-3x /Week Initial Duration: 4-6 Weeks Anticipated Interventions Patient/Client Instruction: Educate patient on: Condition, Plan of Care and Risk Factors For the Purpose of:: To improve self management Therapeutic Exercise to Include: Strength training, Body mechanics, Postural training, Flexibilty training, Neuromotor development, In an aquatic setting and Dynamic Lumbar Stabilization For the Purpose of:: To decrease pain, To improve muscle performance and motor function, To increase tolerance to activity/condition/position, To improve ability of physical actions for home/community/work/leisure and To increase flexibility/ROM TENS: Yes IF ES: Yes Cryotherapy (ice pack, ice massage): Yes Thermo therapy (hot pack): Yes Ultrasound (thermal/non thermal): Yes For the Purpose of:: To decrease pain, To decrease swelling/inflammation and To improve nutrient delivery to tissue Last Seen Last Seen: This patient was last seen in our office 10/07/23. Pertinent comments regarding their Physical therapy will appear below: This patient was seen for an Initial Evaluation and subsequently cancelled all scheduled follow up visits. At this point I will be discontinuing this patient from physical therapy. I would be happy to see this patient again in the future if found appropriate by the physician. Thank you! Ghazal Bravo, PT, Cert MDT Balance/Gait/Functional tests Balance/Special Test Scores Oswestry Low Back Score: 21
== END 2023-10-07 19:00 | disposition home or self-care (01) ==
LOC: PT 08:31
PROVIDERS: Visit Provider Chiropractor
DX: M99.03 Segmental and somatic dysfunction of lumbar region (principal); M99.05 Segmental and somatic dysfunction of pelvic region; M54.9 Dorsalgia, unspecified
CPT/HCPCS: 97162; 97530

== ENCOUNTER → 2025-04-10 | Outpatient (CLI) | payer OTHER, SELFPAY ==
[2025-04-10 12:18] LABS: Hematocrit 42.2 % (37-47); Hemoglobin 14.3 g/dL (12.0-15.0); Immature Granulocytes Count 0.030 X10^3/uL (0.0-0.0); Mean Corp Hgb Conc 33.9 g/dL (32-36); Mean Corpuscular Volume 86.7 fL (81-99); Mean Platelet Vol. 10.4 fl (6.2-12.0); NRBC Flagged by Analyzer 0 % (0-5); Platelet Count 264 K/mm3 (150-450); RBC Distribution Width CV 13.0 % (11.6-14.6); RBC Distribution Width SD 41.0 fl (35.1-43.9); Red Blood Count 4.87 M/mm3 (4.2-5.4); White Blood Count 8.7 K/mm3 (4.4-11.0)
[2025-04-10 12:53] LABS: HIV Nonreactive (Nonreactive); Hepatitis B Surface Antigen Nonreactive (Nonreactive); Hepatitis C Antibody Nonreactive (Nonreactive); Syphilis Antibodies Nonreactive (Nonreactive)
[2025-04-12 06:08] LABS: Chlamydia By Nucleic Acid AMP Negative (Negative); Gonococcus By Nucleic Acid AMP Negative (Negative)
== END | disposition home or self-care (01) ==
PROVIDERS: PCP Family Medicine; Visit Provider Obstetrics & Gynecology
DX: O09.90 Supervision of high risk pregnancy, unspecified, unspecified trimester (principal); O99.210 Obesity complicating pregnancy, unspecified trimester; Z3A.00 Weeks of gestation of pregnancy not specified
CPT/HCPCS: 36415; 83036; 85025; 86703; 86762; 86780; 86803; 86850; 86900; 86901; 87086; 87088; 87340; 87491; 87591

== ENCOUNTER 2025-04-26 20:39 | Emergency (ER) | payer OTHER, SELFPAY ==
[2025-04-26 20:39] VITALS: BP 124/92; PULSE 102; RESP 14; TEMP 36.9; O2SAT 98; BMI 32.5
[2025-04-26] MEDS: 0.9% Normal Saline (1000mL) 1,000 ML 1000 ML IV (21:24)
--- NOTE | 2025-04-26 21:24 | EDS_ITS ---
HPI History of Present Illness Chief Complaint: Nausea/Vomiting Narrative Narrative: Patient is a 29-year-old female presenting to the emergency department for nausea and vomiting for 3 weeks and a left-sided headache that started yesterday. Patient is 11 weeks . She follows with [facility]. Everything has been normal with this so far. Patient states that she had significant nausea and vomiting with her first . States that she was prescribed both Zofran and Reglan. She had generic Reglan leftover from her prior and took this today. She states over the past 3 weeks she has had intermittent nonbloody, nonbilious vomiting. States that her headache started gradually. It is left-sided. She states it feels similar to prior headaches that she has had in the past. She denies fever or chills. Denies any neck pain. Denies any visual changes. Denies any head trauma or falls. Denies abdominal pain, vaginal bleeding or leakage of fluids. Denies any dysuria or hematuria. PFSH [facility] Medical History Depression Anxiety Headache Home Medications Medication Instructions Recorded Last Taken Type multivitamin no.47-iron fum 27 cap PO 03/28/25 Unknown History mg-folate no.1 1 mg-dha 300 mg capsule (PNV-DHA) metoclopramide HCl 5 mg tablet 5 mg PO Q6H PRN nausea and 04/10/25 Unknown Rx (Reglan) vomiting #30 tabs cephalexin 500 mg capsule 500 mg PO Q8H 4 days #12 cap s 04/26/25 Unknown Rx ondansetron 4 mg disintegrating 4 mg PO Q8H PRN PRN Na usea #10 tabs 04/26/25 Unknown Rx tablet Allergy/AdvReac Type Severity Reaction Status Date / Time amoxicillin Allergy Mild Hives Verified 04/26/25 20:40 sulfamethoxazole (From Allergy Mild Hives Verified 04/26/25 20:40 Bactrim) trimethoprim (From Bactrim) Allergy Mild Hives Verified 04/26/25 20:40 Penicillins Allergy Hives Verified 04/26/25 20:40 Family History Grandmother No problems noted. Mother Diabetes Grandfather Cancer, Onset Age: 58 Paternal- unknown type Diabetes Paternal Maternal Grandmother Breast cancer, Onset Age: 55 Surgical History History of surgery Social History adopted: No household members: spouse and children housing: house number of children: 1 current occupational status: unemployed current occupation: [employer] current occupational exposures/hazards: No pets and animals: Yes (2) pets and animals: dog(s) history of recent travel: No ([place]) sexually active: Yes Smoking Status: Never smoker alcohol intake: never substance use type: does not use well-balanced diet: daily or most days caffeine: Yes Type: coffee Number of servings: 1 eating out: rarely or never during the past year weight has: remained stable what type of physical activity do you participate in: walking frequency: 5-6 times per week duration: 15-30 minutes/day lester/oriental orthodox: Baptism seatbelt use: always do you feel safe at home: Yes additional social history: Spouse- [employer] ROS ROS ED ROS Narrative See HPI EXAM Physical Exam Narrative Exam Narrative: Vital signs: Reviewed General: Alert and oriented x 3. No acute distress HEENT: Head is normocephalic and atraumatic, sinuses nontender, pupils equal round and reactive. Nares are patent. Oropharynx and throat exams normal. Moist mucous membranes. Neck: Supple without lymphadenopathy nontender Cardiovascular: Regular rate and rhythm, no murmurs. No rubs or gallops. Normal S1 and S2 Respiratory: Clear to auscultation bilaterally. No wheezes, rales, rhonchi Abdominal: Soft and nontender. Normal bowel sounds. No guarding or rebound. Nonsurgical abdomen Extremities: No lower extremity edema. No tenderness. No bruising. Normal range of motion. Normal sensation. Skin: No rash or redness. Neurological: Cranial nerves II through XII are grossly intact. Normal strength and sensation. Normal cerebellar function The rest of the physical exam is unremarkable Const Vital Signs: 04/26/25 20:39 Temperature 98.5 F Temperature Source Oral Pulse Rate 102 H Respiratory Rate 14 Blood Pressure 124/92 H Blood Pressure Mean 102 Pulse Ox 98 Oxygen Delivery Method Room Air MDM MDM MDM Narrative Medical decision making narrative: Patient is a 29-year-old female presenting to the emergency department for nausea, vomiting and headache. Patient was seen and examined. Vitals are stable. Patient resting in bed comfortably no acute distress. Fluid bolus started. Patient given Zofran and Tylenol for symptomatic control. Headache feels similar to prior headaches. Did not start suddenly. Neurologically intact. Will check electrolytes given patient's nausea and vomiting for 3 weeks. Suspect likely dehydration or electrolyte imbalance causing the patient's headache. Based on an unremarkable physical exam I do not think she has an intracranial mass, subarachnoid, meningitis, encephalitis. Appears well, nontoxic appearing. CBC with no leukocytosis and a normal hemoglobin. BMP with no significant abnormalities. Urinalysis with no evidence of urinary tract infection. Evidence of bacteruria. Given , will treat with keflex. heart tones 140. Patient was reevaluated after fluids, Zofran and Tylenol. States that she is feeling better. She was able to tolerate p.o. with crackers and jesse carlee. I recommended that she call her [employer] tomorrow morning for follow-up. I will p rescribe Zofran every 8 hours until then. Will also prescribe antibiotics for her bacteriuria. Patient discharged from the Emergency Department. I do not feel that the patient's evaluation reveals any acute reason for admission at this time. I instructed them to either follow-up with their primary care physician or promptly return to the Emergency Department for reevaluation should symptoms worsen or new symptoms develop. I explained what symptoms would indicate the need to return to the emergency department. Shared decision making was used. The patient voiced understanding of the treatment plan and is agreeable with it. Clinical impression Nausea and vomiting in first trimester Asymptomatic bacteriuria during Headache History & Record Review Discussion w/independent historian: Patient and Family Lab Data Attestation: I reviewed the patient's lab results. Labs: Laboratory Results - last 24 hr 04/26/25 21:00 WBC 9.2 RBC 5.14 Hgb 14.7 Hct 44.2 MCV 86.0 MCH 28.6 MCHC 33.3 RDW Std Deviation 40.4 RDW Coeff of Chin 12.9 Plt Count 251 MPV 10.1 Immature Gran % (Auto) 0.400 Neut % (Auto) 68.2 Lymph % (Auto) 23.8 Pierce % (Auto) 6.6 Eos % (Auto) 0.5 Baso % (Auto) 0.5 Absolute Neuts (auto) 6.3 Absolute Lymphs (auto) 2.19 Nucleated RBC % 0 Sodium 136 Potassium 3.6 Chloride 102 Carbon Dioxide 22.5 Anion Gap 12 BUN 9 Creatinine 0.65 L Estim Creat Clear Calc 144.23 Est GFR (MDRD) Non-Af 121 BUN/Creatinine Ratio 13.6 Glucose 103 H Calcium 10.1 Urine Color Yellow Urine Clarity Clear Urine pH 6.5 Ur Specific [place] 1.020 Urine Protein 15 H Urine Glucose (UA) Normal Urine Ketones Negative Urine Occult Blood Negative Urine Nitrite Negative Urine Bilirubin Negative Urine Urobilinogen Normal Ur Leukocyte Esterase 25 H Urine RBC 0-5 SEEN Urine WBC 0-5 SEEN Ur Squamous Epith Cells 0-5 SEEN Urine Bacteria 2+ Urine Mucus 0 SEEN Discharge Plan Triage Chief Complaint: Nausea/Vomiting Other Complaint: Headache ED Provider: Guadalupe Carr Dx/Rx/DC Orders Clinical Impression: Nausea and vomiting in , Headache, Asymptomatic bacteriuria during Instructions: ED Headache Unspecified, ED Vomiting (Adult), Common Discomforts During Prescriptions: New ondansetron 4 mg tablet,disintegrating 4 mg PO Q8H PRN PRN (Reason: Nausea) Qty: 10 0RF cephalexin 500 mg capsule 500 mg PO Q8H 4 Days Qty: 12 0RF No Action PNV-DHA 27 mg iron-1 mg -300 mg capsule PO metoclopramide HCl [Reglan] 5 mg tablet 5 mg PO Q6H PRN (Reason: nausea and vomiting) Qty: 30 3RF Rx Instructions: administer 30 minutes before meals Primary Care Provider: Saima Perez Referrals: Saima Perez MD [Primary Care Provider, Family Practice] Binta Jama MD [Med Staff - Active Staff, Obstetrics-Gynecology (OBGYN)] - As soon as possible Activity Restrictions/Additional Instructions: You need to follow-up with your [employer] as soon as possible. Recommend that you call them tomorrow. You can take the Zofran every 8 hours for nausea and vomiting. Try to drink lots of fluids. You should take the antibiotic 3 times a day for 4 days. Your evaluation in the Emergency Department did not reveal any acute reason for admission. However, I want to emphasize that you may be early in the course of a disease process or illness even if it is not present. For this reason you should follow-up within 24 hours for reevaluation with either your primary care physician or if necessary back here in the Emergency Department. You should return to the Emergency Department immediately if your symptoms worsen or new symptoms develop. Print Language: Danish Disposition Disposition: Home, Self Care
[2025-04-26 21:25] LABS: Mucous, Urine 0 SEEN /hpf (<or=2+)
[2025-04-26 21:29] LABS: Color, Urine Yellow (Yellow); Glucose, Dipstick Normal (Normal); Hematocrit 44.2 % (37-47); Hemoglobin 14.7 g/dL (12.0-15.0); Immature Granulocytes Count 0.040 X10^3/uL (0.0-0.0); Ketone-Dipstick Negative (Negative); Leukocyte Esterase-Dipstick 25 /ul (Negative); Mean Corp Hgb Conc 33.3 g/dL (32-36); Mean Corpuscular Volume 86.0 fL (81-99); Mean Platelet Vol. 10.1 fl (6.2-12.0); NRBC Flagged by Analyzer 0 % (0-5); Nitrite-Dipstick Negative (Negative); Occult Blood-Urine Negative /ul (Negative); Platelet Count 251 K/mm3 (150-450); Protein-Dipstick 15 mg/dl (Negative); RBC Distribution Width CV 12.9 % (11.6-14.6); RBC Distribution Width SD 40.4 fl (35.1-43.9); Red Blood Count 5.14 M/mm3 (4.2-5.4); Specific Gravity, Urine 1.020 (1.002-1.030); Urine Bilirubin Dipstick Negative (Negative); White Blood Count 9.2 K/mm3 (4.4-11.0)
--- OUTSIDE RECORDS SUMMARY | 2025-04-26 21:47 | XMS RPT_ITS | CCD ---
Author Organization [facility] Care Team Providers Care Digital Content Specialist Name Role Phone Sukhjinder, Samreen Unavailable Unavailable Aquilino Briggs Unavailable Unavailable Sukhjinder, Samreen Unavailable Unavailable Aquilino Briggs Unavailable Unavailable Sukhjinder, Samreen Unavailable Unavailable Jairon, Julian Unavailable Unavailable Update Needed Unavailable Unavailable Unavailable Unavailable Unavailable Dr. Aquilino Briggs Primary Care Provider Dr. Aquilino Briggs Referring Provider Dr. Binta Jama Attending Provider [phone] Dr. Aquilino Briggs Referring Provider Ebony INTERNET SECURITY SPECIALIST, TARI-Denise Noel Attending Provider [phone] Dr. Saima Perez Primary Care Provider [phone] Dr. Saima Perez Referring Provider [phone] Clarisse Parks Attending Provider [phone] YVES Baumann Attending Provider [phone] Dr. Saima Perez Primary Care Provider [phone] Dr. Saima Perez Referring Provider Dr. Clarisse Parks Attending Provider [phone] Ebony MARC NP-Denise Noel Attending Provider [phone] Dr. Aquilino Briggs Referring Provider Dr. Madhuri Castle Attending Provider [phone] Dr. Binta Jama Attending Provider [phone] Dr. Saima Perez Referring Provider [phone] Clarisse Parks Attending Provider [phone] Ebony MARC, ASHLEY Noel Attending Provider [phone] Dr. Aquilino Briggs Referring Provider [phone] Saima Perez Primary Care Provider [phone] Dr. Madhuri Castle Attending Provider [phone] Dr. Binta Jama Attending Provider [phone] YVES Baumann Attending Provider [phone] YVES Baumann Admit Provider [phone] YVES Baumann Referring Provider [phone] YVES Baumann Other Provider [phone] Dr. Alton Ramirez Attending Provider Unavail able Dr. Alton Ramirez Other Provider Unavailabl Dr. Vinod Hardy Other Provider Saima Perez Primary Care Unavailable Clarisse Parks Attending Unavailabl e Saima Perez Referring Unavailable Saima Perez Primary Care Unavailable Savana Baumann Attending Unavailable Saima Perez Referring Unavailable Saima Perez Primary Care Unavailable Clarisse Parks Attending Unavailabl e Allergies Allergy Classification Reported Allergen(s) Allergy Type Date of Onset Reaction(s) Facility (7 sources) Amoxicillin; Translations: [amoxicillin] Drug Allergy 09-14-19 [facility] Repository (3 sources) Penicillins; Translations: [penicillins] Propensity to adverse reactions to drug (disorder) 04-19-20 AO, [facility] Repository (1 source) Sulfamethoxazole / Trimethoprim; Translations: [Bactrim] Drug Allergy [facility] Repository (5 sources) Sulfamethoxazole Drug Allergy 09-14-19 [facility] (5 sources) Trimethoprim Drug Allergy 09-14-19 [facility] (1 source) Sulfamethoxazole Drug Allergy 03-28-20 [facility] Repository (1 source) Trimethoprim Drug Allergy 03-28-20 [facility] Repository Medications Current Medications Medication Drug Class(es) Dates Sig (Normalized) Sig (Original) famotidine 20 mg oral tablet (1 source) Histamine-2 Receptor Antagonist Start: 04-19-2023 take 1 tablet by mouth once daily before mealtime Famotidine (Pepcid Ac) 20 mg tablet Active 20 MG PO DAILY April 19, 2023 12:00am loratadine 10 mg oral tablet (1 source) Start: 04-19-2023 take 1 tablet by mouth once daily Loratadine (Claritin) 10 mg tablet Active 10 MG PO DAILY April 19, 2023 12:00am Pnv #27-Itdz-Vzriy Acid-Omega3 (3 sources) Start: 02-08-2023 take 1 capsule by mouth once daily Pnv #50-Ykzs-Orhwk Acid-Omega3 Active 1 CAP PO .QD February 07, 2023 11:00pm Start: 02-08-2023 Pnv #30-Iron-F olic Acid-Omega3 Active CAP PO February 08, 2023 12:00am Completed/Discontinued Medications Medication Drug Class(es) Dates Sig (Normalized) Sig (Original) Norethin Brandon-Eth Estrad-FE 1-20 MG-MCG(24) Oral Tablet Chewable (3 sources) Estrogen Start: 03-21-2019 take 1 tablet by mouth once daily Norethin Brandon-Eth Estrad-FE 1-20 MG-MCG(24) Oral Tablet Chewable Take 1 tablet daily Quantity: 1 Refills: 1 Julian De La O DO Start : 21-Mar-2019 Active 28 Tablet Pack Norgestim-Eth Estrad Triphasic 0.18/0.215/0.25 MG-25 MCG Oral Tablet (2 sources) Progestin, Estrogen Start: 05-01-2019 take 1 tablet by mouth once daily Norgestim-Eth Estrad Triphasic 0.18/0.215/0.25 MG-25 MCG Oral Tablet TAKE 1 TABLET DAILY. Quantity: 1 Refills: 11 Julian De La O DO Start : 01-May-2019 Active 28 Tablet Pack ondansetron 4 mg disintegrating oral tablet (12 sources) Serotonin-3 Receptor Antagonist Start: 09-27-2022 End: 04-19-2023 take 4 mg by mouth every four hours Ondansetron Discontinued 4 MG PO Q4H 60 October 06, 2022 11:18am April 19, 2023 7:35am up to 3 times per day promethazine hydrochloride 12.5 mg oral tablet (4 sources) Phenothiazine Start: 10-06-2022 End: 04-19-2023 take 12.5 mg by mouth every six hours Promethazine Discontinued 12.5 MG PO EVERY 6 HOURS 60 October 05, 2022 11:00pm April 19, 2023 7:36am Problems Active Problems Problem Classification Problem Date Documented Da te Episodic/Chronic Cardiac dysrhythmias (2 sources) Tachycardia; Translations: [Tachycardia, unspecified] 04-21-2023 Episodic Genitourinary symptoms and ill-defined conditions (1 source) Unspecified urinary incontinence; Translations: [Unspecified urinary incontinence] Onset: 04-10-2025 Chronic Miscellaneous mental health disorders (1 source) depression; Translations: [ depression] Onset: 04-10-2025 Episodic Other bone disease and musculoskeletal deformities (12 sources) Segmental and somatic dysfunction; Translations: [Segmental and somatic dysfunction of cervical region] 02-08-2023 Episodic Other bone disease and musculoskeletal deformities (20 sources) Segmental and somatic dysfunction of cervical region; Translations: [Nonallopathic lesions, cervical region] 02-08-2023 Episodic Other bone disease and musculoskeletal deformities (16 sources) Segmental and somatic dysfunction of lumbar region; Translations: [Nonallopathic lesions, lumbar region] 02-08-2023 Episodic Other bone disease and musculoskeletal deformities (20 sources) Segmental and somatic dysfunction of sacral region; Translations: [Nonallopathic lesions, sacral region] 02-08-2023 Episodic Other bone disease and musculoskeletal deformities (20 sources) Segmental and somatic dysfunction of thoracic region; Translations: [Nonallopathic lesions, thoracic region] 02-08-2023 Episodic Other complications of (1 source) Obesity complicating , unspecified trimester; Translations: [Obesity complicating , unspecified trimester] Onset: 04-10-2025 Chronic Other complications of (5 sources) High risk ; Translations: [Supervision of high risk , unspecified, unspecified trimester] 09-08-2022 Episodic Other complications of (20 sources) Supervision of high risk , unspecified, unspecified trimester; Translations: [Supervision of unspecified high-risk ] Onset: 04-20-2025 09-13-2022 Episodic Other endocrine disorders (2 sources) Menarche; Translations: [History of Menarche] Chronic Other female genital disorders (2 sources) H/O: dysmenorrhea; Translations: [History of dysmenorrhea] Episodic Other injuries and conditions due to external causes (5 sources) H/O: injury; Translations: [Personal history of other (healed) physical injury and trauma] 09-08-2022 Episodic Other injuries and conditions due to external causes (20 sources) Personal history of other (healed) physical injury and trauma; Translations: [Personal history of other injury] Onset: 04-10-2025 09-13-2022 Episodic Other and delivery including normal (20 sources) ; Translations: [Encounter for supervision of normal , unspecified, unspecified trimester] Onset: 04-10-2025 09-13-2022 Episodic Skin and subcutaneous tissue infections (1 source) Abscess; Translations: [Cutaneous abscess, unspecified] 04-19-2023 Episodic Spondylosis; intervertebral disc disorders; other back problems (20 sources) Backache; Translations: [Dorsalgia, unspecified] Onset: 04-10-2025 02-08-2023 Episodic Syncope (2 sources) Near syncope; Translations: [Syncope and collapse] 04-20-2023 Episodic Unclassified (20 sources) Marginal insertion of umbilical cord; Translations: [Marginal insertion of umbilical cord] 01-30-2023 Past or Other Problems Problem Classification Problem Date Documented Da te Episodic/Chronic Unclassified (9 sources) Patient encounter status; Translations: [Screening for STD (sexually transmitted disease)] Unclassified (2 sources) Cancer cervix screening status; Translations: [Screening for cervical cancer] Results Test Name Value Interpretation Reference Range Facility Chlamydia/GC DAVID aptimaon CHLAMY,NUC ACID Negative Normal Negative [facility] Comment on above: Performed By: #### L 509.4006, L501.9985, L509.8002, BTS, L100.0100, L3890.6301, L3890.6102, L3890.6006 #### [facility] [address] [place], [address] GC BY NUC ACID Negative Normal Negative [facility] Comment on above: Result Comment: Perf ormed at: =G - [facility] [address] [id number] [facility] Administrator: Tracy Rucker MD, Phone: [phone] Performed By: #### L 509.4006, L501.9985, L509.8002, BTS, L100.0100, L3890.6301, L3890.6102, L3890.6006 #### [facility] [address] [place], [place], [id number] Urine Cultureon 04-12-2025 URC Below infection leve l. Mixed Gram Positive Organisms [place] Count 1000-10,000 MIXC Mixed contaminants. Submit a new specimen if indicated. Normal [facility] Comment on above: Performed By: #### L 509.4006, L501.9985, L509.8002, BTS, L100.0100, L3890.6301, L3890.6102, L3890.6006 #### [facility] [address] [place], [place], [id number] CBC W/Diff, Automatedon 03-14 Absolute Lymph 1.91 X10 3/uL Normal 0.83-4.51 [facility] Comment on above: Performed By: #### L 509.4006, L501.9985, L509.8002, BTS, L100.0100, L3890.6301, L3890.6102, L3890.6006 #### [facility] [address] [place], [place], [id number] Absolute Neut 6.2 X10 3/uL Normal 2.0-7.7 [facility] Comment on above: Performed By: #### L 509.4006, L501.9985, L509.8002, BTS, L100.0100, L3890.6301, L3890.6102, L3890.6006 #### [facility] [address] [place], [place], [id number] Basophils/100 WBC (Bld) 0.5 % Normal 0-1 [facility] Comment on above: Performed By: #### L 509.4006, L501.9985, L509.8002, BTS, L100.0100, L3890.6301, L3890.6102, L3890.6006 #### [facility] [address] [place], [address] Eosinophils/100 WBC (Bld) 0.3 % Normal 0-5 [facility] Comment on above: Performed By: #### L 509.4006, L501.9985, L509.8002, BTS, L100.0100, L3890.6301, L3890.6102, L3890.6006 #### [facility] [address] [place], [address] Erythrocyte distribution width (RBC) [Ratio] 13.0 % Normal 11.6-14.6 [facility] Comment on above: Performed By: #### L 509.4006, L501.9985, L509.8002, BTS, L100.0100, L3890.6301, L3890.6102, L3890.6006 #### [facility] [address] [facility] [place], [address] Hematocrit (Bld) [Volume fraction] 42.2 % Normal 37-47 [facility] Comment on above: Performed By: #### L 509.4006, L501.9985, L509.8002, BTS, L100.0100, L3890.6301, L3890.6102, L3890.6006 #### [facility] [address] [place], [address] Hemoglobin (Bld) [Mass/Vol] 14.3 g/dL Normal 12.0-15.0 [facility] Comment on above: Performed By: #### L 509.4006, L501.9985, L509.8002, BTS, L100.0100, L3890.6301, L3890.6102, L3890.6006 #### [facility] [address] [place], [address] IG% 0.300 Normal 0.0-0.9 [facility] Comment on above: Result Comment: IG% - Immature Granulocytes (promyelocytes, myelocytes and metamyelocytes) > 1% indicates that a LEFT SHIFT is Present. Performed By: #### L 509.4006, L501.9985, L509.8002, BTS, L100.0100, L3890.6301, L3890.6102, L3890.6006 #### [facility] [address] [place], [address] Lymphocytes/100 WBC (Bld) 22.0 % Normal 19-41 [facility] Comment on above: Performed By: #### L 509.4006, L501.9985, L509.8002, BTS, L100.0100, L3890.6301, L3890.6102, L3890.6006 #### [facility] [address] [place], [address] MCH (RBC) [Entitic mass] 29.4 pg Normal 27.0-32.0 [facility] Comment on above: Performed By: #### L 509.4006, L501.9985, L509.8002, BTS, L100.0100, L3890.6301, L3890.6102, L3890.6006 #### [facility] [address] [place], [address] MCHC (RBC) [Mass/Vol] 33.9 g/dL Normal 32-36 [facility] Comment on above: Performed By: #### L 509.4006, L501.9985, L509.8002, BTS, L100.0100, L3890.6301, L3890.6102, L3890.6006 #### [facility] [address] [place], [address] MCV (RBC) [Entitic vol] 86.7 fL Normal 81-99 [facility] Comment on above: Performed By: #### L 509.4006, L501.9985, L509.8002, BTS, L100.0100, L3890.6301, L3890.6102, L3890.6006 #### [facility] [address] [place], [address] Monocytes/100 WBC (Bld) 5.3 % Normal 0-10 [facility] Comment on above: Performed By: #### L 509.4006, L501.9985, L509.8002, BTS, L100.0100, L3890.6301, L3890.6102, L3890.6006 #### [facility] [address] [place], [address] Neutrophils/100 WBC (Bld) 71.6 % High 47-70 [facility] Comment on above: Performed By: #### L 509.4006, L501.9985, L509.8002, BTS, L100.0100, L3890.6301, L3890.6102, L3890.6006 #### [facility] [address] [place], [address] Nucleated RBC (Bld) [#/Vol] 0 10*3/uL Normal 0-5 [facility] Comment on above: Performed By: #### L 509.4006, L501.9985, L509.8002, BTS, L100.0100, L3890.6301, L3890.6102, L3890.6006 #### [facility] [address] [place], [address] Platelet mean volume (Bld) [Entitic vol] 10.4 fL Normal 6.2-12.0 [facility] Comment on above: Performed By: #### L 509.4006, L501.9985, L509.8002, BTS, L100.0100, L3890.6301, L3890.6102, L3890.6006 #### [facility] [address] [place], [address] Platelets (Bld) [#/Vol] 264 10*3/uL Normal 150-450 [facility] Comment on above: Performed By: #### L 509.4006, L501.9985, L509.8002, BTS, L100.0100, L3890.6301, L3890.6102, L3890.6006 #### [facility] [address] [place], [address] RBC (Bld) [#/Vol] 4.87 10*6/uL Normal 4.2-5.4 [facility] Comment on above: Performed By: #### L 509.4006, L501.9985, L509.8002, BTS, L100.0100, L3890.6301, L3890.6102, L3890.6006 #### [facility] [address] [place], [address] RDW SD 41.0 fl Normal 35.1-43.9 [facility] Comment on above: Performed By: #### L 509.4006, L501.9985, L509.8002, BTS, L100.0100, L3890.6301, L3890.6102, L3890.6006 #### [facility] [address] [place], [address] WBC (Bld) [#/Vol] 8.7 10*3/uL Normal 4.4-11.0 [facility] Comment on above: Performed By: #### L 509.4006, L501.9985, L509.8002, BTS, L100.0100, L3890.6301, L3890.6102, L3890.6006 #### [facility] [address] [place], [place], [address] HIVon 04-10-2025 HIV Non-Reactive Normal Nonreactive [facility] Comment on above: Result Comment: Non- Reactive Reactive Repeatedly reactive samples must be confirmed according to CDC recommended confirmatory algorithms. The subresults for either HIVAG or AHIV can be used as an aid in the selection of the confirmation algorithm for reactive samples. [facility]. Order the HIV antibody detection and differentiation: [id number] Performed By: #### L 509.4006, L501.9985, L509.8002, BTS, L100.0100, L3890.6301, L3890.6102, L3890.6006 #### [facility] [address] [place], [place], [id number] Hemoglobin A1con 04-10-2025 HbA1c (Bld) [Mass fraction] 5.3 % Normal <=5.6 [facility] Comment on above: Result Comment: Norm al < 5.7 % Prediabetic 5.7 - 6.4 % Diabetic >or= 6.5 % Please note range changes. Performed By: #### L 509.4006, L501.9985, L509.8002, BTS, L100.0100, L3890.6301, L3890.6102, L3890.6006 #### [facility] [address] [place], [place], [id number] Hepatitis C Antibodyon 04-10 Hepatitis C Ab Non-Reactive Normal Nonreactive [facility] Comment on above: Result Comment: Reac tive: Presumptive evidence of antibodies to HCV. Follow CDC recommendations for supplemental testing. Non-Reactive: Antibodies to HCV were not detected; does not exclude the possibility of exposure to HCV Reactive Results are presumptive evidence of antibodies to HCV. Follow CDC recommendations for supplemental testing. Order confirmation testing: HCV Quant by PCR testing - HCVPCR #[id number] Non Reactive: < 0.8 Equivocal: >/= 0.8 to < 1.0 Reactive: >/= 1.0 The CDC requires that a reactive/equivocal HCV antibody result be sent out for confirmation. HCV Quant by PCR testing. Performed By: #### L 509.4006, L501.9985, L509.8002, BTS, L100.0100, L3890.6301, L3890.6102, L3890.6006 #### [facility] [address] [place], [place], [id number] L3890.6102on 04-10-2025 HEP B Surf Ag Non-Reactive Normal Nonreactive [facility] Comment on above: Result Comment: Reac tive: Presumptive evidence of HBV. Repeatedly reactive samples must be confirmed using a neutralization test ([employer] HBsAg Confirmatory Test) Non-Reactive: HBsAg not detected; does not exclude the possibility of exposure to HBV Performed By: #### L 509.4006, L501.9985, L509.8002, BTS, L100.0100, L3890.6301, L3890.6102, L3890.6006 #### [facility] [address] [place], [address] L509.4006on 04-10-2025 Rubella IgG REAC Normal Nonreactive [facility] Comment on above: Result Comment: Anti body Result: Interpretation Non-Reactive: Non-Immune Reactive: Immune The following results were obtained with the [employer] Rubella IgG assay. Results from assays of other manufacturers cannot be used interchangeably. Performed By: #### L 509.4006, L501.9985, L509.8002, BTS, L100.0100, L3890.6301, L3890.6102, L3890.6006 #### [facility] [address] [place], [place], [id number] Chief Jailer Office Visit Reporton 04-10-2025 Chief Jailer Office Visit Report [facility] [address], [address] [place] [address] OFFICE VISIT Date of Service: 04/10/25 MR#: [id number] Acct: [id number] Name: AMRIT LARA Rep #: [id number] : 1995 Provider: Dr. 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 Is patient in pain?: No Allergies amoxicillin Allergy (Mild, Verified 03/28/25 10:44) Hives sulfamethoxazole (From Bactrim) Allergy (Mild, Verified 03/28/25 10:44) Hives trimethoprim (From Bactrim) Allergy (Mild, Verified 03/28/25 10:44) Hives Penicillins Allergy (Verified 03/28/25 10:44) Hives Medications ???Medication ???Instructions ???Recorded ???Confirmed ???Type multivitamin no.47-iron fum 27 cap PO 03/28/25 03/28/25 History mg-folate no.1 1 mg-dha 300 mg capsule (PNV-DHA) metoclopramide HCl 5 mg tablet 5 mg PO Q6H PRN nausea and 5 04/10/25 Rx (Reglan) vomiting #30 tabs Last Menstrual Period: 02/04/25 Zika: Zika virus screening: Negative : No PFSH PFSH Medical History Depression Anxiety Headache Surgical History History of surgery Family History Grandmother No problems noted. 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 current occupational exposures/hazards: No pets and animals: Yes (2) pets and animals: dog(s) history of recent travel: No ([place]) sexually active: Yes Smoking Status: Never smoker alcohol intake: never substance use type: does not use well-balanced diet: daily or most days caffeine: Yes Type: coffee Number of servings: 1 eating out: rarely or never during the past year weight has: remained stable what type of physical activity do you participate in: walking frequency: 5-6 times per week duration: 15-30 minutes/day lester/presybeterian: Jain seatbelt use: always do you feel safe at home: Yes additional social history: Spouse- [place]- [employer] History 2 Elective abortions Hx Para 1 Spontaneous abortions Hx # Term Pregnancies 1 Ectopic pregnancies Hx # Pregnancies Multiple births # of living children 1 Past Pregnancies Del. Date Name GA/Weeks Outcome Route Bth Weight Infant Gen Labor Lgth Anesthesia Del Locatn Provider FOB 04/19/23 Jabier 41 live - full term 7#14oz Female epidural [facility] Nestor Baumann CNM [place] Delivery Date: 04/19/23 Last Updated by: Suzan Aldridge see problem list for complications, and KW 41.0 IOL girl. HPI *EST* NOB LMP 02/04, TRISTIAN 11/11 Details: AMRIT LARA is a 29 year old who presents for New OB visit. OB Visit [facility] Calculator Estimated Delivery Date Method Current WG Current Estimate 11/11/25 LMP (Certain) 9w 2d Other Estimates 11/12/25 Ultrasound #1 9w 1d Comments: HIV: Urine Culture: Sequential Screen: NIPT Screen: Estimated Due Date: 11/11/24 Expected Delivery Route/Plan Labor Preferences- CB/BF classes: [] labor support person: [] labor intervention preferences: [] pain management options preferred: [] cut cord/dad catch: [] : [] PP control planned: [] discussed possible routes of delivery and associated risks: [] special requests: [] Specific Issue/Plans Covid status: [] Flu vaccine: [] Tdap vaccine: [] Rhogam: [] LARC form signed: [] Problem list reviewed and updated with the most current plan of care details and appropriate orders placed. Relevant counseling for the gestational age provided. Continue routine care and follow up unless otherwise noted in visit notes/problem list details Initial Weight: Not Recorded Date -???-???-???-???-???-??? -???-???-???-???-???-??? - EGA Weight BP Urine Prot -???-???-???-???-???-??? -???-???-???-???-???-??? - Glucose FHR FuHt Pres Dilation -???-???-???-???-???-??? -???-???-???-???-???-??? - Effaced St Visit Note 04/10/25 -???-???-???-???-???-??? -???-???-???-???-???-??? - 9w 2d 207 lb 8 oz 124/82 -???-???-???-???-???-??? -???-???-???-???-???-??? - 180 -???-? (more content not included)... Normal [facility] Syphilis Antibodieson 2024 Syphilis Abs Non-Reactive Normal Nonreactive [facility] Comment on above: Performed By: #### L 509.4006, L501.9985, L509.8002, BTS, L100.0100, L3890.6301, L3890.6102, L3890.6006 #### [facility] [address] [place], [place], [id number] Type AND Screenon 04-10-2025 ABO and Rh group Nom (Bld) Blood group A Rh(D) positive Normal [facility] Comment on above: Order Comment: PN Performed By: #### L 509.4006, L501.9985, L509.8002, BTS, L100.0100, L3890.6301, L3890.6102, L3890.6006 #### [facility] [address] [place], [address] Chief Jailer Office Visit Reporton 06-14-2024 Chief Jailer Office Visit Report [facility] [address], [address] [place] [address] OFFICE VISIT Date of Service: 06/14/24 MR#: [id number] Acct: [id number] Name: AMRIT LARA Rep #: [id number] : 1995 Provider: YVES Garcia ams Age/Sex: 28/F Location: [facility] Status: Signed Intake Vital Signs 10/20/23 10:55 06/14/24 16:03 06/14/24 16:08 Height 5 ft 6 in 5 ft 6 in 5 ft 6 in Weight: 198 lb 8 oz BMI 32.0 BP 120/84 H 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) Chief Complaint: Annual 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 Required: No Is patient in pain?: No Allergies amoxicillin Allergy (Mild, Verified 06/14/24 16:03) Hives sulfamethoxazole (From Bactrim) Allergy (Mild, Verified 06/14/24 16:03) Hives trimethoprim (From Bactrim) Allergy (Mild, Verified 06/14/24 16:03) Hives Penicillins Allergy (Verified 06/14/24 16:03) Hives Medications ???Medication ???Instructions ???Recorded ???Confirmed ???Type vitamin#30 30 mg iron-10 1 cap PO .QD 02/08/23 06/14/24 History mg iron-folic acid 1 mg-omg3 capsule Is last menstrual period known: Yes Last Menstrual Period: 06/05/24 Post menopausal: No Patient : No : Yes PFSH Medical History Depression Anxiety Headache Surgical History History of surgery Family History Grandmother Breast cancer, Onset Age: 60 Mother Diabetes Grandfather Cancer Social History adopted: No household members: spouse current occupational status: employed current occupation: [employer] current occupational exposures/hazards: No pets and animals: Yes pets and animals: dog(s) history of recent travel: Yes ([place]) out of state: Yes sexually active: Yes Smoking Status: Never smoker alcohol intake: never substance use type: does not use caffeine: Yes Type: coffee Number of servings: 1 seatbelt use: always do you feel safe at home: Yes additional social history: Spouse- [place] History 1 Elective abortions Hx Para 1 Spontaneous abortions Hx # Term Pregnancies 1 Ectopic pregnancies Hx # Pregnancies Multiple births # of living children 1 Past Pregnancies Del. Date Name GA/Weeks Outcome Route Bth Weight Infant Gen Labor Lgth Anesthesia Del Locatn Provider FOB 04/19/23 Jabier 41 live - full term Female epidural [facility] Nestor Baumann CNM [place] Delivery Date: 04/19/23 Last Updated by: Suzan Aldridge see problem list for complications, and KW 41.0 IOL girl. HPI Encounter for routine gynecological examination Details: AMRIT LARA is a 28 year old who presents for annual exam. 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 does not have good support system as works long hours and may be gone for days at a time due to work. Discussed use of counseling,SSRI or OCP and pt declines. Does not have reliable sitter for counseling. recommended [facility] wort and vitamin D3 along with increasing exercise when able. She does journal and this does help Last PAP: 2022 History of abnormal PAP: no Last mammogram: age 39 History of abnormal mammogram: na Colon cancer screening: age 44 Other preventative health care screenings: PCP Female Reproductive History Last Menstrual Period: 06/05/24 Cycle Length: 21-35 Bleeding Duration: 7 Questions: metorrhagia: No, sexually active: Yes, dyspareunia: No and PCB: No Coding Level of Care Code Off vis,est,prev 18-39yrs Diagnoses Encounter for routine gynecological examination Z01.419 Encounter for well woman exam with routine gynecological exam Z01.419 Assessment and Plan Assessment and Plan (1) Encounter for routine gynecological examination: (2) Encounter for well woman exam with routine gynecological exam: Status: Acute Plan: [facility] anderson wort vit d 3 increase exercise RTO if sx worsen or if she would like to try SSRI or OCP Medications: Discontinued sertraline (Zoloft) Discontinued Reason: Order Completed 25 mg PO DAILY 90 tabs 0RF F53.0 - depression Plan Details Goals Barriers: Goals Decrease spasm Improve intersegmental alignment Improve function Decrease pain 06/14/24 1646 Date Savana Baileyignlisha Signature: Date (if applicable) CC: Normal [facility] Absolute lymphocyte countOrd ered By: Alton Larkin on 04-20-2023 Lymphocytes Auto (Unsp spec) [#/Vol] 1.94 10*3/uL 0.83-4.51 [facility] Basophil percentageOrdered B y: Alton Larkin on 04-20-2023 Basophils/100 WBC (Bld) 0.3 % 0-1 [facility] Chloride [Moles/Vol] 109 mmol/L 98-107 [facility] Eosinophils/100 WBC (Bld) 0.2 % 0-5 [facility] Glucose [Mass/Vol] 97 mg/dL 74-106 [facility] Neutrophils (Bld) [#/Vol] 10.2 10*3/uL 2.0-7.7 [facility] Neutrophils/100 WBC (Bld) 77.9 % 47-70 [facility] Potassium [Moles/Vol] 4.0 mmol/L 3.5-5.1 [facility] Sodium [Moles/Vol] 138 mmol/L 136-145 [facility] WBC (Bld) [#/Vol] 13.1 10*3/uL 4.4-11.0 [facility] Blood erythrocytes count (nu mber/volume)Ordered By: Alton Larkin on 04-20-2023 RBC (Bld) [#/Vol] 3.29 10*6/uL 4.2-5.4 [facility] Blood hemoglobin measurement (mass/volume)Ordered By: Alton Larkin on 04-20-2023 Hemoglobin (Bld) [Mass/Vol] 9.2 g/dL 12.0-15.0 [facility] Blood lymphocytes/100 leukoc ytesOrdered By: Alton Larkin on 04-20-2023 Lymphocytes/100 WBC (Bld) 14.8 % 19-41 [facility] Blood monocytes/100 leukocyt esOrdered By: Alton Larkin on 04-20-2023 Monocytes/100 WBC (Bld) 6.3 % 0-10 [facility] Blood platelet mean volumeOr dered By: Alton Larkin on 04-20-2023 Platelet mean volume (Bld) [Entitic vol] 11.2 fL 6.2-12.0 [facility] Determination of erythrocyte mean corpuscular volume (MCV)Ordered By: Alton Larkin on 04-20-2023 MCV (RBC) [Entitic vol] 88.4 fL 81-99 [facility] Hematocrit Auto (Bld) [Volum e fraction]Ordered By: Alton Larkin on 04-20-2023 Hematocrit (Bld) [Volume fraction] 29.1 % 37-47 [facility] Laboratory - Chemistry and C hemistry - challengeOrdered By: Alton Larkin on 04-20-2023 CO2 [Moles/Vol] 22.0 mmol/L 21.0-32.0 [facility] Urea nitrogen/Creatinine [Mass ratio] 13.4 mg/mg 10-20 [facility] - Hematology and Cell countsOrdered By: Alton Larkin on 04-20-2023 Erythrocyte distribution width (RBC) [Entitic vol] 47.8 fL 35.1-43.9 [facility] Erythrocyte distribution width (RBC) [Ratio] 15.1 % 11.6-14.6 [facility] Immature granulocytes/100 WBC (Bld) 0.500 % 0.0-0.9 [facility] Comment on above: IG% - Immature Granu locytes (promyelocytes, myelocytes and metamyelocytes) > 1% indicates that a LEFT SHIFT is Present. MCH (RBC) [Entitic mass] 28.0 pg 27.0-32.0 [facility] Nucleated RBC/100 WBC (Bld) [Ratio] 0 % 0-5 [facility] MCHC Auto (RBC) [Mass/Vol]Or dered By: Alton Larkin on 04-20-2023 MCHC (RBC) [Mass/Vol] 31.6 g/dL 32-36 [facility] No Panel InformationOrdered By: Alton Larkin on 04-20-2023 Estimated Creatinine Clearance Calc 104.54 ml/min [facility] Estimated GFR (MDRD) Amer 118 mL/min >60 [facility] Comment on above: GFR Calc Estimated GFR (MDRD) Non-Af Amer 97 mL/min >60 [facility] Comment on above: Non- GFR Calc Platelets bldOrdered By: Oliver Larkin on 04-20-2023 Platelets (Bld) [#/Vol] 198 10*3/uL 150-450 [facility] Serum or plasma calcium nelia urement (mass/volume)Ordered By: Alton Larkin on 04-20-2023 Calcium [Mass/Vol] 8.7 mg/dL 8.5-10.1 [facility] Serum or plasma creatinine m easurement (mass/volume)Ordered By: Alton Larkin on 04-20-2023 Creatinine [Mass/Vol] 0.75 mg/dL 0.55-1.02 [facility] Comment on above: The validity of the calculated GFR & GFRAA in patients over 70 years has not been determined. Clinical correlation is essential. Serum or plasma urea nitroge n measurement (mass/volume)Ordered By: Alton Larkin on 04-20-2023 Urea nitrogen [Mass/Vol] 10 mg/dL 7-18 [facility] Thin prep Papanicolaou smear with manual screeningOrdered By: Alton Larkin on 04-20-2023 Thin prep Papanicolaou smear with manual screening 7 5-15 [facility] No Panel InformationOrdered By: Alton Larkin on 04-19-2023 Troponin I High Sensitivity 5 pg/mL 3.0-54.0 [facility] Comment on above: Please Note: New Katie t Units and Gender Specific Reference Ranges. For more information see Policy Stat Procedure [place] High Sensitivity Troponin (TNIH) and attachments. Serum Treponema species anti body detectionOrdered By: Savana Baumann on 04-19-2023 Treponema sp Ab Ql (S) Non-Reactive [facility] Laboratory - Chemistry and C hemistry - challengeon 04-15-2023 Glucose Ql (U) Negative [facility] Laboratory - Urinalysison Protein Ql (U) Negative [facility] - Chemistry and C hemistry - challengeon 04-12-2023 Glucose Ql (U) Negative [facility] Laboratory - Urinalysison Protein Ql (U) Negative [facility] Laboratory - Chemistry and C hemistry - challengeon 04-07-2023 Glucose Ql (U) Negative [facility] Laboratory - Urinalysison Protein Ql (U) Negative [facility] - Chemistry and C hemistry - challengeon 03-30-2023 Glucose Ql (U) Negative [facility] Laboratory - Urinalysison Protein Ql (U) Negative [facility] Laboratory - Chemistry and C hemistry - challengeon 03-25-2023 Glucose Ql (U) Negative [facility] Laboratory - Urinalysison Protein Ql (U) Negative [facility] No Panel InformationOrdered By: Savana Baumann on 03-25-2023 Group B Streptococcus Culture Group B Beta Streptococcus is not isolated. [facility] Group B Streptococcus Culture Group B Beta Streptococcus is not isolated. [facility] Laboratory - Chemistry and C hemistry - challengeon 03-14-2023 Glucose Ql (U) Negative [facility] Laboratory - Urinalysison Protein Ql (U) Negative [facility] - Chemistry and C hemistry - challengeon 03-03-2023 Glucose Ql (U) Negative [facility] Laboratory - Urinalysison Protein Ql (U) Negative [facility] Laboratory - Chemistry and C hemistry - challengeon 02-15-2023 Glucose Ql (U) Negative [facility] Laboratory - Urinalysison Protein Ql (U) Negative [facility] - Chemistry and C hemistry - challengeon 02-02-2023 Glucose Ql (U) Negative [facility] Laboratory - Urinalysison Protein Ql (U) Negative [facility] Laboratory - Chemistry and C hemistry - challengeon 01-18-2023 Glucose Ql (U) Negative [facility] Laboratory - Urinalysison Protein Ql (U) Negative [facility] Absolute lymphocyte countOrd ered By: Savana Baumann on 01-13-2023 Lymphocytes Auto (Unsp spec) [#/Vol] 1.64 10*3/uL 0.83-4.51 [facility] Basophil percentageOrdered B y: Savana Baumann on 01-13-2023 Basophils/100 WBC (Bld) 0.3 % 0-1 [facility] Eosinophils/100 WBC (Bld) 0.6 % 0-5 [facility] Neutrophils (Bld) [#/Vol] 7.8 10*3/uL 2.0-7.7 [facility] Neutrophils/100 WBC (Bld) 76.3 % 47-70 [facility] WBC (Bld) [#/Vol] 10.2 10*3/uL 4.4-11.0 [facility] Blood erythrocytes count (nu mber/volume)Ordered By: Savana Baumann on 01-13-2023 RBC (Bld) [#/Vol] 3.66 10*6/uL 4.2-5.4 [facility] Blood hemoglobin measurement (mass/volume)Ordered By: Savana Baumann on 01-13-2023 Hemoglobin (Bld) [Mass/Vol] 11.2 g/dL 12.0-15.0 [facility] Blood lymphocytes/100 leukoc ytesOrdered By: Savana Baumann on 01-13-2023 Lymphocytes/100 WBC (Bld) 16.1 % 19-41 [facility] Blood monocytes/100 leukocyt esOrdered By: Savana Baumann on 01-13-2023 Monocytes/100 WBC (Bld) 6.3 % 0-10 [facility] Blood platelet mean volumeOr dered By: Savana Baumann on 01-13-2023 Platelet mean volume (Bld) [Entitic vol] 10.3 fL 6.2-12.0 [facility] Determination of erythrocyte mean corpuscular volume (MCV)Ordered By: Savana Baumann on 01-13-2023 MCV (RBC) [Entitic vol] 90.7 fL 81-99 [facility] Gestational diabetes screen 1-hour screen with 50g oral glucose loadOrdered By: Savana Baumann on 01-13-2023 Glucose 1 Hr post 50 g glucose PO [Mass/Vol] 106 mg/dL 70-140 [facility] HIV 1 and HIV-2 antibody ass ay with HIV-1 p24 antigen detectionOrdered By: Savana Baumann on 01-13-2023 HIV 1+2 Ab+HIV1 p24 Ag IA Ql Non-Reactive Nonreactive [facility] Hematocrit Auto (Bld) [Volum e fraction]Ordered By: Savana Baumann on 01-13-2023 Hematocrit (Bld) [Volume fraction] 33.2 % 37-47 [facility] Laboratory - Hematology and Cell countsOrdered By: Savana Baumann on 01-13-2023 Erythrocyte distribution width (RBC) [Entitic vol] 47.4 fL 35.1-43.9 [facility] Erythrocyte distribution width (RBC) [Ratio] 14.3 % 11.6-14.6 [facility] Immature granulocytes/100 WBC (Bld) 0.400 % 0.0-0.9 [facility] Comment on above: IG% - Immature Granu locytes (promyelocytes, myelocytes and metamyelocytes) > 1% indicates that a LEFT SHIFT is Present. MCH (RBC) [Entitic mass] 30.6 pg 27.0-32.0 [facility] Nucleated RBC/100 WBC (Bld) [Ratio] 0 % 0-5 [facility] MCHC Auto (RBC) [Mass/Vol]Or dered By: Savana Baumann on 01-13-2023 MCHC (RBC) [Mass/Vol] 33.7 g/dL 32-36 [facility] Platelets bldOrdered By: Nestor Baumann on 01-13-2023 Platelets (Bld) [#/Vol] 205 10*3/uL 150-450 [facility] Serum Treponema species anti body detectionOrdered By: Savana Baumann on 01-13-2023 Treponema sp Ab Ql (S) Non-Reactive [facility] Laboratory - Chemistry and C hemistry - challengeon 01-05-2023 Glucose Ql (U) Negative [facility] Laboratory - Urinalysison Protein Ql (U) Trace [facility] Laboratory - Chemistry and C hemistry - challengeon 12-08-2022 Glucose Ql (U) Negative [facility] Laboratory - Urinalysison Protein Ql (U) Trace [facility] Laboratory - Chemistry and C hemistry - challengeon 11-10-2022 Glucose Ql (U) Negative [facility] Laboratory - Urinalysison Protein Ql (U) Negative [facility] Laboratory - Chemistry and C hemistry - challengeon 10-13-2022 Glucose Ql (U) Negative [facility] Laboratory - Urinalysison Protein Ql (U) Negative [facility] Culture, urineOrdered By: Dr Teja Jama on 09-15-2022 Bacteria identified Cx Nom (U) Positive [facility] Absolute lymphocyte countOrd ered By: Dr. Jama on 09-13-2022 Lymphocytes Auto (Unsp spec) [#/Vol] 1.93 10*3/uL 0.83-4.51 [facility] Basophil percentageOrdered B y: Dr. Jama on 09-13-2022 Basophils/100 WBC (Bld) 0.4 % 0-1 [facility] Eosinophils/100 WBC (Bld) 0.2 % 0-5 [facility] Neutrophils (Bld) [#/Vol] 6.4 10*3/uL 2.0-7.7 [facility] Neutrophils/100 WBC (Bld) 71.3 % 47-70 [facility] WBC (Bld) [#/Vol] 8.9 10*3/uL 4.4-11.0 [facility] Blood erythrocytes count (nu mber/volume)Ordered By: Dr. Jama on 09-13-2022 RBC (Bld) [#/Vol] 4.90 10*6/uL 4.2-5.4 [facility] Blood hemoglobin measurement (mass/volume)Ordered By: Dr. Jama on 09-13-2022 Hemoglobin (Bld) [Mass/Vol] 14.1 g/dL 12.0-15.0 [facility] Blood lymphocytes/100 leukoc ytesOrdered By: Dr. Jama on 09-13-2022 Lymphocytes/100 WBC (Bld) 21.7 % 19-41 [facility] Blood monocytes/100 leukocyt esOrdered By: Dr. Jama on 09-13-2022 Monocytes/100 WBC (Bld) 6.2 % 0-10 [facility] Blood platelet mean volumeOr dered By: Dr. Jama on 09-13-2022 Platelet mean volume (Bld) [Entitic vol] 9.8 fL 6.2-12.0 [facility] Chlamydia trachomatis rRNA d etection by probe and target amplification methodOrdered By: Dr. Jama on 09-13-2022 C. trachomatis rRNA DAVID+probe Ql (Unsp spec) Negative Negative [facility] Determination of erythrocyte mean corpuscular volume (MCV)Ordered By: Dr. Jama on 09-13-2022 MCV (RBC) [Entitic vol] 87.1 fL 81-99 [facility] HIV 1 and HIV-2 antibody ass ay with HIV-1 p24 antigen detectionOrdered By: Dr. Jama on 09-13-2022 HIV 1+2 Ab+HIV1 p24 Ag IA Ql Non-Reactive Nonreactive [facility] Hematocrit Auto (Bld) [Volum e fraction]Ordered By: Dr. Jama on 09-13-2022 Hematocrit (Bld) [Volume fraction] 42.7 % 37-47 [facility] Laboratory - Hematology and Cell countsOrdered By: Dr. Jama on 09-13-2022 Erythrocyte distribution width (RBC) [Entitic vol] 40.3 fL 35.1-43.9 [facility] Erythrocyte distribution width (RBC) [Ratio] 12.7 % 11.6-14.6 [facility] Immature granulocytes/100 WBC (Bld) 0.200 % 0.0-0.9 [facility] Comment on above: IG% - Immature Granu locytes (promyelocytes, myelocytes and metamyelocytes) > 1% indicates that a LEFT SHIFT is Present. MCH (RBC) [Entitic mass] 28.8 pg 27.0-32.0 [facility] Nucleated RBC/100 WBC (Bld) [Ratio] 0 % 0-5 [facility] Laboratory - Microbiology an d Antimicrobial susceptibilityOrdered By: Dr. Jama on 09-13-2022 N. gonorrhoeae DNA DAVID+probe Ql (Unsp spec) Negative Negative [facility] Comment on above: Performed at: =G - L [address] [place], [place] [id number] Director: Tracy Rucker MD, Phone: [phone] MCHC Auto (RBC) [Mass/Vol]Or dered By: Dr. Jama on 09-13-2022 MCHC (RBC) [Mass/Vol] 33.0 g/dL 32-36 [facility] No Panel InformationOrdered By: Dr. Jama on 09-13-2022 Hepatitis B Surface Antigen Non-Reactive Nonreactive [facility] Hepatitis C Antibody Non-Reactive Nonreactive [facility] Comment on above: Non Reactive: < 0.8 Equivocal: >/= 0.8 to < 1.0 Reactive: >/= 1.0The CDC recommends that a reactive/equivocal HCV antibody result be followed up by the HCV Nucleic Acid Amplificationtest (605217) Rubella IgG Antibody Reactive Nonreactive [facility] Comment on above: Antibody Results Int erpretation of Immune Status Non Reactive Presumed Non-Immune Equivocal Equivocal Reactive Presumed Immune Platelets bldOrdered By: Dr. Jama on 09-13-2022 Platelets (Bld) [#/Vol] 294 10*3/uL 150-450 [facility] Serum Treponema species anti body detectionOrdered By: Dr. Jama on 09-13-2022 Treponema sp Ab Ql (S) Non-Reactive [facility] CNPNon 10-30-2020 CNPN Telephone ([facility]WSTR) -------- AMRIT LOCKE ([id number]) 1995 F [place] Date Time Provider Department 10/30/20 BRANDI PHELAN During your visit today, we recorded the following information about you: Vonnie Kaur LPN 10/30/2020 1:30 PM Signed ----- Message from Brandi Phelan APRN.PUSHPA sent at 10/30/2020 7:34 AM EDT ----- Urine culture did not show clear evidence of infection. She may continue to take antibiotic if it has been helpful. If not improving, recommend follow up with PCP. PUSHPA Ibarra LPN 10/30/2020 1:30 PM Signed Patient notified.Vonnie Kaur LPN Allergies As of Date: 10/30/2020 Noted Allergy Reaction AMOXICILLIN 11/20/2015 2 - Rash BACTRIM (SULFAMETHOXAZOLE-TRIMET H*11/20/2015 2 - Rash PENICILLINS 11/20/2015 2 - Rash Date Reviewed: 10/28/2020 Reviewed by: Gemini Fajardo APRN.PUSHPA - Fully Assessed Reason for Visit: Results [95] Prescriptions as of 10/30/2020 Sig: NITROFURANTOIN MONOHYDRATE AND * Take 1 capsule by mouth twice* DROSPIREN-E.ESTRAD-L.MEF OL 3 * Take 1 tablet by mouth once d* Problem List As Of Date: 10/30/2020 (None) Encounter Status:Closed by VONNIE KAUR LPN on 10/30/20 [facility] CNOVon 10-28-2020 CNOV Office Visit ([facility]WSTR ) -------- AMRIT LOCKE ([id number]) 1995 F [place] Date Time Provider Department 10/28/20 1:30 PM GEMINI FAJRADO During your visit today, we recorded the following information about you: Temperature Pulse Respiration Blood pressure 99.6 degrees 88/minute 18/minute 124/76 Weight 80.6 kg Gemini FajardoVIBHA 10/28/2020 1:53 PM Signed Urinary Problem-When to Seek Help? Symptoms of a urinary problem may lead to a?bladder?infection. Women are at greater risk of a urinary tract infection than are men. Most urinary tract infections in women are caused by bacteria and involve the lower urinary tract including the bladder and urethra. Symptoms: Pain or burning when passing urine, urgency, frequency, blood in the urine, difficult emptying your bladder, and lower abdominal fullness or pressure. Common Causes: Sexual intercourse, menopause, constipation, uncontrolled diabetes, dehydration and feminine products such as tampons, and kidney stones. When to Get Help: Seek medical attention if you get frequent bladder infections, urinary concerns such as leakage, blood in the urine or frequent need to urinate. You may be recommended to get help from a specialist, such as a urologist. Diagnosis AND Treatment: Lab testing may include: urinalysis, and urine culture that can be collected in the lab or walk-in clinic. Most bladder infections can easily be treated. A physician, nurse practitioner or physician mechanic assistant may treat with a short course of an antibiotic. Delaying treatment can lead to worsening symptoms, like a kidney infection. Self-Care: Avoid a full bladder, bubble baths, bath oils, food and beverages that may irritate the bladder such as caffeine. Avoid spermicide foam and diaphragms Void before and after sexual intercourse Wipe front to back after using the bathroom. Stay hydrated Stop Smoking Follow-up Care: Follow up testing is not needed in healthy young women if symptoms resolve. Gemini Fajardo APRN.CNP 10/28/2020 3:58 PM Signed Visit Date: October 28, 2020 Patient Name: Ms.Kassandra Jairo Locke Date of : 1995 MRN/E #: [id number] Chief Complaint Patient presents with: Urinary Frequency: frequency, urgency and burning x 1 week History of present illness Amrit Locke is a 25 year old female. Presents with complaints of urinary frequency, urgency, and flank pain that started 1 week ago. She was seen virtually last week and prescribed 3 days of Macrobid which helped but then her symptoms re-appeared 2 days ago. Denies having a fever, chills, hematuria, dysuria, or abdominal pain. She has been drinking fluids with little symptom relief. PAIN EVALUATION No data found in the last 1 encounters. ALLERGIES Allergen Reactions - Amoxicillin Rash - Bactrim [Sulfametho* Rash - Penicillins Rash PAST MEDICAL HISTORY Diagnosis Date - Known health problems: none PAST SURGICAL HISTORY Procedure Laterality Date - NONE Social History Tobacco Use - Smoking status: Never Smoker - Smokeless tobacco: Never Used Vaping Use - Vaping Use: Never used Substance Use Topics - Alcohol use: Yes Comment: socially - Drug use: No FAMILY HISTORY Problem Relation Age of Onset - Diabetes Mother - No Known Problems Father - other (heart murmur) Sister - Breast Cancer Maternal Grandmother - Heart disease Maternal Grandfather CABGx3 - Heart Attack Maternal Grandfather - No Known Problems Paternal Grandmother - Cancer Paternal Grandfather Review of Systems Constitutional: Negative for chills, fever and malaise/fatigue. HENT: Negative for congestion and sore throat. Respiratory: Negative for cough, shortness of breath and wheezing. Cardiovascular: Negative for chest pain and palpitations. Gastrointestinal: Negative for abdominal pain, diarrhea, nausea and vomiting. Genitourinary: Positive for flank pain, frequency and urgency. Negative for dysuria and hematuria. Musculoskeletal: Negative for myalgias. Skin: Negative for itching and rash. Neurological: Negative for dizziness, tingling and headaches. Physical Exam Vitals and nursing note reviewed. Constitutional: Appearance: Normal appearance. HENT: Mouth/Throat: Mouth: Mucous membranes are dry. Eyes: Extraocular Movements: Extraocular movements intact. Pupils: Pupils are equal, round, and reactive to light. Cardiovascular: Rate and Rhythm: Normal rate and regular rhythm. Pulses: Normal pulses. Heart sounds: Normal heart sounds. Pulmonary: Effort: Pulmonary effort is normal. Breath sounds: Normal breath sounds. Abdominal: General: Bowel sounds are normal. There is no distension. Tenderness: There is no abdominal tenderness. There is no guarding. Skin: General: Skin is warm. Neurological: Mental Status: She is alert and oriented to person, (more content not included)... Normal [facility] Urine Cultureon 10-28-2020 Bacteria identified Cx Nom (U) Sp. Request/Comment: - Specimen received in preservative Culture Result - <10,000 CFU/ml Lactose positive gram negative bacilli --> ABNORMAL ALERT Insignificant colony count. No further workup. --> ABNORMAL ALERT 10,000 - <50,000 CFU/ml Normal urogenital milan Critically abnormal [facility] Comment on above: Performed By: #### U RCUL #### [facility] [address] [place], [place] [address] Brennen 10-21-2020 PUSHPAN Telephone ([facility]) -------- AMRIT LOCKE ([id number]) 1995 F UPA Date Time Provider Department 10/21/20 MICA FREY [facility] During your visit today, we recorded the following information about you: Mica Frey APRN.CNP 10/21/2020 3:01 PM Signed Please remove me as PCP. I am no longer in that role. VIBHA Petty Ma 10/21/2020 3:13 PM Signed Removed per provider request. Keron Carrillo Ma Allergies As of Date: 10/21/2020 Noted Allergy Reaction AMOXICILLIN 11/20/2015 2 - Rash BACTRIM (SULFAMETHOXAZOLE-TRIMET H*11/20/2015 2 - Rash PENICILLINS 11/20/2015 2 - Rash Date Reviewed: 10/21/2020 Reviewed by: Mica Frey APRN.BOTTOM STOP ATTACHER - Fully Assessed Reason for Visit: PCP Removal [Other] Prescriptions as of 10/21/2020 Sig: X SERTRALINE 50 MG TABLET Take 1 tablet by mouth once d* DROSPIREN-E.ESTRAD-L.MEF OL 3 * Take 1 tablet by mouth once d* Problem List As Of Date: 10/21/2020 (None) Encounter Status:Closed by KERON CARRILLO MA on 10/21/20 Normal [facility] Coronavirus 2019on 1 SARS-CoV-2 (COVID-19) RNA DAVID+probe Ql (Unsp spec) UPPER RESPIRATORY TRACT SWAB Normal [facility] Comment on above: Performed By: #### C OVID #### [place] [id number] [place] [phone] SARS-CoV-2 (COVID-19) RNA DAVID+probe Ql (Unsp spec) Positive for COVID19 (SARS CoV2) by RT-PCR or equivalent method. Critically abnormal Negative for COVID19 (SARS CoV2) by RT-PCR or equivalent method. [facility] Comment on above: Result Comment: This test was developed and its performance characteristics determined by [facility] [place]. This test has been authorized by FDA under an Emergency Use Authorization (EUA). This test has been validated in accordance with the FDA's Guidance Document "Policy for Diagnostics Testing in Laboratories Certified to Perform High Complexity Testing under CLIA prior to Emergency use Authorization for Coronavirus Disease 2019 during the Public Health Emergency" issued on August 11, 2019. Test performed by [facility], [facility], [address] [place] [address]. Performed By: #### C OVID #### [place] [phone] Urinalysison 10-21-2020 Bilirubin, Urine Negative Normal Negative [facility] Comment on above: Performed By: #### U A #### [place] [phone] Clarity (U) Clear Normal Clear [facility] Comment on above: Performed By: #### U A #### [place] [address] Color (U) Straw Critically abnormal Yellow [facility] Comment on above: Performed By: #### U A #### [place] [phone] Comments SEE COMMENT Normal [facility] Comment on above: Result Comment: Micr oscopic Examination Performed Performed By: #### U A #### [facility] [address] [place], [place] [phone] Epithelial cells LM Ql (Urine sed) SEE COMMENT Normal [facility] Comment on above: Result Comment: Few Squamous Epithelial Cells Few Non-Squamous Epithelial Cells Performed By: #### U A #### [facility] [address] [place], [place] [id number] Glucose Ql (U) Negative Normal Negative [facility] Comment on above: Performed By: #### U A #### [place] [address] Hemoglobin/Blood,Ur 1+ Critically abnormal Negative [facility] Comment on above: Performed By: #### U A #### [place] [address] Ketones Ql (U) Negative Normal Negative [facility] Comment on above: Performed By: #### U A #### [place] [address] Leukest 3+ Critically abnormal Negative [facility] Comment on above: Performed By: #### U A #### [place] [phone] Nitrite Ql (U) Negative Normal Negative [facility] Comment on above: Performed By: #### U A #### [place] [address] pH (U) 6.0 [pH] Normal 5.0-8.0 [facility] Comment on above: Performed By: #### U A #### [place] [id number] [place], [place] [address] Protein, Urine Negative Normal Negative [facility] Comment on above: Performed By: #### U A #### [address] [address] RBC 3-5 Critically abnormal 0-3 [facility] Comment on above: Performed By: #### U A #### [facility] [address] [place], [place] [address] Specific [place], Ur 1.009 Normal 1.005-1.030 [facility] Comment on above: Performed By: #### U A #### [place] [address] [place], [place] [phone] Urine Uli Comment SEE COMMENT Normal [facility] Comment on above: Result Comment: N/A Performed By: #### U A #### [place] [id number] [place] [address] Urobilinogen (U) [Mass/Vol] Negative Normal Negative [facility] Comment on above: Performed By: #### U A #### [place] [address] WBC (U) [#/Vol] /uL Critically abnormal 0-5 [facility] Comment on above: Performed By: #### U A #### [place] [phone] [place] [address] Urine Cultureon 10-21-2020 Bacteria identified Cx Nom (U) Sp. Request/Comment: - Specimen received in preservative Culture Result - 10,000 - <50,000 CFU/ml Lactose positive gram negative bacilli --> ABNORMAL ALERT Insignificant colony count. No further workup. --> ABNORMAL ALERT <10,000 CFU/ml Normal urogenital milan Critically abnormal [facility] Comment on above: Performed By: #### U RCUL #### [facility] [address] [place] [id number] GC + CHLAMYDIA BY AMPLIFIED DETECTIONon 05-01-2019 CHLAMYDIA TRACH.,AMPLIFIED NOT DETECTED Normal NOT DETECTED [facility] Comment on above: Performed By: #### G [facility] #### [place] [address] N.GONORRHEA,AMPLIFIED NOT DETECTED Normal NOT DETECTED [facility] Comment on above: Performed By: #### G [facility] #### [facility] [address] [place] [address] Lab Specimen Source Genital cervix Normal [facility] Comment on above: Performed By: #### G [facility] #### [place] [address] [place] [address] GC + Chlamydia By Amplified Detectionon 05-01-2019 C. trachomatis rRNA DAVID+probe Ql (Unsp spec) NOT DETECTED See Below [facility] [employer] Work Phone: Comment on above: Reference Range: NOT DETECTED N. gonorrhoeae rRNA DAVID+probe Ql (Unsp spec) NOT DETECTED See Below [facility] [employer] Work Phone: Comment on above: SOURCE: Genital cerv ixReference Range: NOT DETECTED MORTGAGE ANALYST - Office Visiton 04-13 MORTGAGE ANALYST - Office Visit Chief Complaint PT HERE TODAY FOR YEARLY, DOES NOT DO SELF BREAST EXAMS. LMP 04/24/2019 NO CONCERNS History of Present Illness 23-year-old G0 presents for annual exam. Patient is safe at home denies abuse. Patient sexually active without concern. Patient's last menstrual period in April. Patient is on control malignant refills. Patient does self breast exams. Patient has no other acute concerns Review of Systems Constitutional: No fevers, chills Eye:no vision changes Respiratory: no SOB Cardiovascular: no chest pain Breast: No lump/mass or discharge Gastrointestinal: No nausea, vomiting, diarrhea, constipation, abdominal pain Genitourinary:no dysuria Gynecology: See HPI Endocrine: No heat or cold intolerance Musculoskeletal: No decreased ROM Skin:No rash Neurologic: No numbness tingling Psychiatric: No anxiety, depression All other: all other systems reviewed and negative for complaint Active Problems Contraceptive management (V25.9) (Z30.9) Past Medical History History of dysmenorrhea (V13.29) (Z87.42) History of Menarche (V21.8) AGE 9 Surgical History No history of surgery Family History Family history of diabetes mellitus (V18.0) (Z83.3) Family history of cerebrovascular accident (CVA) (V17.1) (Z82.3) Family history of hypertension (V17.49) (Z82.49) Family history of malignant neoplasm of breast (V16.3) (Z80.3) Family history of malignant neoplasm of thyroid (V16.8) (Z80.8) Family history of myocardial infarction (V17.3) (Z82.49) Family history of Irregular heart beat Social History Does not use illicit drugs (V49.89) (Z78.9) Never a smoker No alcohol use Sexually active Current Meds Norethin Brandon-Eth Estrad-FE 1-20 MG-MCG(24) Oral Tablet Chewable; Take 1 tablet daily; Therapy: 21Mar2019 to (Evaluate:[id number]) Requested for: 22Mar2019; Last Rx:22Mar2019 Ordered Rx By: Julian De La O; Dispense: 28 Days ; #:1 X 28 Tablet Pack; Refill: 1;For: Contraceptive management; DREW = N; Verified Transmission to [id number]; Last Updated By: [employer]; 05/01/2019 9:04:12 AM Vitals Vital Signs Recorded: 01May2019 08:43AM [id number] Ppsrneqds33 Height5 ft 5 in Ljpbnl015 lb 2.22 oz BMI Oumusfoack30.15 BSA Calculated1.81 [id number] Physical Exam General: None acute distress Eye: Intraocular movements are intact HEENT: Normocephalic Respiratory: Lungs are clear to auscultation, respirations are nonlabored Breast: No masses no tenderness no discharge no adenopathy or skin changes Gastrointestinal: Soft nontender nondistended normal bowel sounds Gynecology: External genitalia within normal limits for age. Urethral meatus normal bladder nontender. Vagina without discharge. No vaginal bleeding nulliparous cervix. No lesions. No CMT. Uterus mobile midline nontender. No levator ani tenderness. No adnexal tenderness. No adnexal masses Musculoskeletal: Normal range of motion Skin: Warm and dry Neurologic: Alert and oriented x3 Psychiatric: Cooperative appropriate mood and affect. Diagnoses/Problems Contraceptive management (V25.9) (Z30.9) Screening for STD (sexually transmitted disease) (V74.5) (Z11.3) Women's annual routine gynecological examination (V72.31) (Z01.419) Screening for breast cancer (V76.10) (Z12.39) Screening for cervical cancer (V76.2) (Z12.4) Orders Start: Norethin Brandon-Eth Estrad-FE 1-20 MG-MCG(24) Oral Tablet Chewable (Minastrin 24 Fe); Take 1 tablet daily Rx By: Julian De La O; Dispense: 28 Days ; #:1 X 28 Tablet Pack; Refill: 1;For: Contraceptive management; DREW = N; Sent To: [facility][id number] Provider Impressions 1)Annual Exam-Cervical,colon and breast cancer screening guidelines reviewed. CBE benign. Pap not indicated as was NIL in 2018 . Reviewed HPV vaccine and guidelines. Discussed safe sex practices. Discussed diet and exercise. Reviewed bone health, namely exercise with vitamin D/calcium. Reviewed fertility goals. Reviewed hereditary cancer screening. Discussed that patient is not at increased risk. All questions answered. Signatures Electronically signed by : Julian De La O DO; May 01 2019 4:33PM EST (Author) Normal [employer] IGP W/hpv Rfx [id number] 04-17 Diagnosis: See Ref Lab Report Normal [facility] Comment on above: Order Comment: LMP: 03/19/18 Performed By: #### 1 [id number] ####[place] [address] Pathology ([facility])on 04-11-2018 Pathology ([facility]) FINAL GYNECOLOGIC CYTOLOGY [id number] ADEQUACYSatisfactory for Evaluation. Endocervical cells/transformation zone componentpresent.GENERAL CATEGORIZATIONNegative for Intraepithelial Lesion or MalignancyDESCRIPTIVE DIAGNOSISReactive cellular changes associated inflammation and repair.COMMENTSample has been treated with glacial acetic acid for excessive blood, debris,inflammation and/or lubricant.CLINICAL HISTORYLMP: 03/19/2018SPECIMEN(A) SCREENING CERVICAL/ENDOCERVICAL THIN PREP VIALPerformed at [facility], [address], [place] [address]Qamoshzb by: MELQUIADES CHO Lawn Service Manager Signed Out by: JOHANN GREENE M.D. Reported: 04/14/2018 Normal [facility] Comment on above: Performed By: #### G YN ####[facility] [id number] [place] [address] Vital Signs Date Time Vital Sign Value Performing Clinician Kimo rosas 04-21-2023 08:27-0500 Body temperature 97.6 [degF] Dr. Saima Perez Work Phone: [facility] 04-21-2023 08:27-0500 Diastolic blood pressure 76 mm[Hg] Dr. Saima Perez Work Phone: [facility] 04-21-2023 08:27-0500 Heart rate 91 /min Dr. Saima Perez Work Phone: [facility] 04-21-2023 08:27-0500 Respiratory rate 18 /min Dr. Saima Perez Work Phone: [facility] 04-21-2023 08:27-0500 SaO2% (BldA) [Mass fraction] 99 % Dr. Saima Perez Work Phone: [facility] 04-21-2023 08:27-0500 Systolic blood pressure 124 mm[Hg] Dr. Saima Perez Work Phone: [facility] 04-19-2023 07:30-0500 Body height 167.[address] Saima Perez Work Phone: [facility] 04-19-2023 07:30-0500 Body mass index (BMI) [Ratio] 37.7 kg/m2 Dr. Saima Perez Work Phone: [facility] 04-19-2023 07:30-0500 Body weight [address] Saima Perez Work Phone: [facility] 04-15-2023 09:44-0400 Body mass index (BMI) [Ratio] 37.6 kg/m2 Dr. Saima Perez Work Phone: [facility] 04-15-2023 09:44-0400 Body weight 105.[address] Saima Perez Work Phone: [facility] 04-15-2023 09:44-0400 Diastolic blood pressure 82 mm[Hg] Dr. Saima Perez Work Phone: [facility] 04-15-2023 09:44-0400 Systolic blood pressure 130 mm[Hg] Dr. Saima Perez Work Phone: [facility] 04-12-2023 08:26-0400 Body mass index (BMI) [Ratio] 37 kg/m2 Dr. Saima Perez Work Phone: [facility] 04-12-2023 08:26-0400 Body weight 104.[address] Saima Perez Work Phone: [facility] 04-12-2023 08:26-0400 Diastolic blood pressure 84 mm[Hg] Dr. Saima Perez Work Phone: [facility] 04-12-2023 08:26-0400 Systolic blood pressure 131 mm[Hg] Dr. Saima Perez Work Phone: [facility] 04-07-2023 15:37-0400 Diastolic blood pressure 88 mm[Hg] Dr. Saima Perez Work Phone: [facility] 04-07-2023 15:37-0400 Systolic blood pressure 135 mm[Hg] Dr. Saima Perez Work Phone: [facility] 04-07-2023 15:16-0400 Body mass index (BMI) [Ratio] 37.3 kg/m2 Dr. Saima Perez Work Phone: [facility] 04-07-2023 15:16-0400 Body weight 104.[address] aSima Perez Work Phone: [facility] 03-30-2023 11:17-0400 Body height 167.[address] Saima Perez Work Phone: [facility] 03-30-2023 11:16-0400 Body mass index (BMI) [Ratio] 36.8 kg/m2 Dr. Saima Perez Work Phone: [facility] 03-30-2023 11:16-0400 Body weight 103.[address] Saima Perez Work Phone: [facility] 03-30-2023 11:16-0400 Diastolic blood pressure 78 mm[Hg] Dr. Saima Perez Work Phone: [facility] 03-30-2023 11:16-0400 Systolic blood pressure 113 mm[Hg] Dr. Saima Perez Work Phone: [facility] 03-25-2023 08:46-0400 Body height 167.[address] Saima Perez Work Phone: [facility] 03-25-2023 08:45-0400 Body mass index (BMI) [Ratio] 36.3 kg/m2 Dr. Saima Perez Work Phone: [facility] 03-25-2023 08:45-0400 Body weight 102.[address] Saima Perez Work Phone: [facility] 03-25-2023 08:45-0400 Diastolic blood pressure 79 mm[Hg] Dr. Saima Perez Work Phone: [facility] 03-25-2023 08:45-0400 Systolic blood pressure 122 mm[Hg] Dr. Saima Perez Work Phone: [facility] 03-14-2023 08:19-0400 Body mass index (BMI) [Ratio] 35.7 kg/m2 Dr. Saima Perez Work Phone: [facility] 03-14-2023 08:19-0400 Body weight 100.[address] Saima Perez Work Phone: [facility] 03-14-2023 08:19-0400 Diastolic blood pressure 74 mm[Hg] Dr. Saima Perez Work Phone: [facility] 03-14-2023 08:19-0400 Systolic blood pressure 110 mm[Hg] Dr. Saima Perez Work Phone: [facility] 03-03-2023 08:05-0400 Body mass index (BMI) [Ratio] 34.8 kg/m2 Dr. Saima Perez Work Phone: [facility] 03-03-2023 08:05-0400 Body weight 97.[address] Saima Perez Work Phone: [facility] 03-03-2023 08:05-0400 Diastolic blood pressure 72 mm[Hg] Dr. Saima Perez Work Phone: [facility] 03-03-2023 08:05-0400 Systolic blood pressure 114 mm[Hg] Dr. Saima Perez Work Phone: [facility] 02-15-2023 09:04-0400 Body mass index (BMI) [Ratio] 34.2 kg/m2 Dr. Saima Perez Work Phone: [facility] 02-15-2023 09:04-0400 Body weight 96.[address] Saima Perez Work Phone: [facility] 02-15-2023 09:04-0400 Diastolic blood pressure 82 mm[Hg] Dr. Saima Perez Work Phone: [facility] 02-15-2023 09:04-0400 Systolic blood pressure 120 mm[Hg] Dr. Saima Perez Work Phone: [facility] 02-08-2023 08:03-0400 Body mass index (BMI) [Ratio] 33.9 kg/m2 Dr. Saima Perez Work Phone: [facility] 02-08-2023 08:03-0400 Body weight 95.[address] Saima Perez Work Phone: [facility] 02-08-2023 08:03-0400 Diastolic blood pressure 80 mm[Hg] Dr. Saima Perez Work Phone: [facility] 02-08-2023 08:03-0400 Systolic blood pressure 132 mm[Hg] Dr. Saima Perez Work Phone: [facility] 02-02-2023 11:02-0400 Body height 167.[address] Aquilino Briggs Work Phone: 6(703)532-256939 [address] 02-02-2023 11:00-0400 Body mass index (BMI) [Ratio] 33.6 kg/m2 Dr. Aquilino Briggs Work Phone: 2(353)911-938646 [place] [address] 02-02-2023 11:00-0400 Body weight 94.[address] Aquilino Briggs Work Phone: 5(109)312-979646 [place] [address] 02-02-2023 11:00-0400 Diastolic blood pressure 77 mm[Hg] Dr. Aquilino Briggs Work Phone: 2(173)327-216746 [place] [address] 02-02-2023 11:00-0400 Systolic blood pressure 115 mm[Hg] Dr. Aquilino Briggs Work Phone: 2(760)215-555246 [place] [address] 01-18-2023 08:02-0400 Body mass index (BMI) [Ratio] 33 kg/m2 Dr. Aquilino Briggs Work Phone: 7(293)862-158846 [place] [address] 01-18-2023 08:02-0400 Body weight 92.[address] Aquilino Briggs Work Phone: 3(043)941-337146 [place] [address] 01-18-2023 08:02-0400 Diastolic blood pressure 76 mm[Hg] Dr. Aquilino Briggs Work Phone: 1(263)284-462246 [place] [address] 01-18-2023 08:02-0400 Systolic blood pressure 110 mm[Hg] Dr. Aquilino Briggs Work Phone: 6(921)695-427246 [place] [address] 01-05-2023 08:31-0400 Body mass index (BMI) [Ratio] 32.1 kg/m2 Dr. Aquilino Briggs Work Phone: 5(371)804-806746 [place] [address] 01-05-2023 08:31-0400 Body weight 90.[address] Aquilino Briggs Work Phone: 3(025)087-373046 [place] [address] 01-05-2023 08:31-0400 Diastolic blood pressure 73 mm[Hg] Dr. Aquilino Briggs Work Phone: 8(232)540-583946 [place] [address] 01-05-2023 08:31-0400 Systolic blood pressure 108 mm[Hg] Dr. Aquilino Briggs Work Phone: 0(125)227-974646 [place] [address] 12-08-2022 08:29-0400 Body mass index (BMI) [Ratio] 30.9 kg/m2 Dr. Aquilino Briggs Work Phone: 8(545)425-528446 [place] [address] 12-08-2022 08:29-0400 Body weight 87.[address] Aquilino Briggs Work Phone: 9(970)375-322846 [place] [address] 12-08-2022 08:29-0400 Diastolic blood pressure 70 mm[Hg] Dr. Aquilino Briggs Work Phone: 8(655)850-701246 [place] [address] 12-08-2022 08:29-0400 Systolic blood pressure 110 mm[Hg] Dr. Aquilino Briggs Work Phone: 9(922)468-955346 [place] [address] 11-10-2022 11:13-0400 Body mass index (BMI) [Ratio] 30.2 kg/m2 Dr. Aquilino Briggs Work Phone: 2(652)637-788146 [place] [address] 11-10-2022 11:13-0400 Body weight 85.[address] Aquilino Briggs Work Phone: 0(059)778-352046 [place] [address] 11-10-2022 11:13-0400 Diastolic blood pressure 79 mm[Hg] Dr. Aquilino Briggs Work Phone: 1(771)455-824746 [place] [address] 11-10-2022 11:13-0400 Systolic blood pressure 122 mm[Hg] Dr. Aquilino Briggs Work Phone: 4(263)834-227346 [place] [address] 10-13-2022 08:31-0400 Body mass index (BMI) [Ratio] 30 kg/m2 Dr. Aquilino Briggs Work Phone: 0(136)093-169746 [place] [address] 10-13-2022 08:31-0400 Body weight 84.[address] Aquilino Briggs Work Phone: 7(533)772-819946 [place] [address] 10-13-2022 08:31-0400 Diastolic blood pressure 76 mm[Hg] Dr. Aquilino Briggs Work Phone: 0(320)553-701479 [place] [address] 10-13-2022 08:31-0400 Systolic blood pressure 122 mm[Hg] Dr. Aquilino Briggs Work Phone: 5(714)724-463239 [address] 09-13-2022 09:30-0400 Body height 167.[address] Aquilino Briggs Work Phone: 2(469)785-216339 [address] 09-13-2022 09:30-0400 Body mass index (BMI) [Ratio] 30.9 kg/m2 Dr. Aquilino Briggs Work Phone: 1(245)718-042639 [address] 09-13-2022 09:30-0400 Body weight 86.[address] Aquilino Briggs Work Phone: 7(915)486-819039 [address] 09-13-2022 09:30-0400 Diastolic blood pressure 86 mm[Hg] Dr. Aquilino Briggs Work Phone: 5(095)312-155179 [place] [address] 09-13-2022 09:30-0400 Systolic blood pressure 131 mm[Hg] Dr. Aquilino Briggs Work Phone: 2(609)990-286979 [place] [address] 05-01-2019 10:43-0500 BMI (Body Mass Index) 27.15 kg/m2 [facility] [address] Work Phone: 05-01-2019 10:43-0500 Body weight 74 kg [facility] [address] Work Phone: 05-01-2019 10:43-0500 BP Diastolic 70 mm[Hg] [facility] [address] Work Phone: 05-01-2019 10:43-0500 BP Systolic 110 mm[Hg] [facility] [address] Work Phone: 05-01-2019 10:43-0500 BSA (Body Surface Area) 1.81 m2 [facility] [address] Work Phone: 05-01-2019 10:43-0500 Height 165.1 cm Julian cadet [address] Work Phone: 04-11-2018 09:30-0400 BMI (Body Mass Index) 27.86 kg/m2 [facility] [place] [address] Work Phone: 04-11-2018 09:30-0400 Body weight 77.7 kg [facility] [address] Work Phone: 04-11-2018 09:30-0400 BP Diastolic 80 mm[Hg] [facility] [address] Work Phone: 04-11-2018 09:30-0400 BP Systolic 128 mm[Hg] [facility] [address] Work Phone: 04-11-2018 09:30-0400 BSA (Body Surface Area) 1.87 m2 Julian [facility] [address] Work Phone: 04-11-2018 09:30-0400 Height 167 cm Julian cadet [address] Work Phone: Encounters Encounter Date Encounter Type Care Provider Facility Start: 04-10-2025 End: 04-10-2025 ambulatory [facility] Facility:[facility] Start: 04-10-2025 End: 04-10-2025 ambulatory [facility] Facility:[facility] Start: 06-14-2024 End: 06-14-2024 ambulatory [facility] Facility:[facility] Start: 04-21-2023 Non-patient / Non-visit Dr. Ralph Perez Work Phone: [facility] Start: 04-20-2023 Non-patient / Non-visit Dr. Ralph Perez Work Phone: [facility] Start: 04-20-2023 Non-patient / Non-visit Dr. Ralph Perez Work Phone: [facility] Work Phone: Start: 04-19-2023 Non-patient / Non-visit Dr. Ralph Perez Work Phone: [facility] Start: 04-19-2023 End: 04-21-2023 Evaluation and management of inpatient Dr. Saima Perez Work Phone: [facility] [place] Work Phone: Start: 04-15-2023 End: 04-15-[address] Saima Perez Work Phone: [facility] Work Phone: Start: 04-12-2023 End: 04-12-[address] Saima Perez Work Phone: [facility] Work Phone: Start: 04-07-2023 End: 04-07-[address] Saima Perez Work Phone: [facility] Work Phone: Start: 04-04-2023 End: 04-04-[address] [facility] Work Phone: Start: 03-30-2023 End: 03-30-[address] Saima Perez Work Phone: [facility] Work Phone: Start: 03-30-2023 End: 03-30-[address] [facility] Work Phone: Start: 03-28-2023 End: 03-28-[address] Saima Perez Work Phone: [facility] Work Phone: Start: 03-28-2023 End: 03-28-[address] Saima Perez Work Phone: [facility] H Work Phone: Start: 03-25-2023 End: 03-25-[address] Saima Perez Work Phone: [facility] Work Phone: Start: 03-25-2023 End: 03-25-[address] Saima Perez Work Phone: [facility]Laboratory, Specimen Work Phone: Start: 03-25-2023 End: 03-25-[address] Saima Perez Work Phone: [facility] Work Phone: Start: 03-21-2023 End: 03-21-[address] [facility]aim[facility] Perez [facility] Work Phone: Start: 03-14-2023 End: 03-14-[address] Saima Perez Work Phone: [facility] Work Phone: Start: 03-07-2023 End: 03-07-[address] Saima Perez Work Phone: [facility] Work Phone: Start: 03-03-2023 End: 03-03-[address] Saima Perez Work Phone: [facility] Work Phone: Start: 02-28-2023 End: 02-28-[address] Saima Perez Work Phone: [facility] Ul[facility] Work Phone: Start: 02-22-2023 End: 02-22-[address] Saima Perez Work Phone: [facility] Work Phone: Start: 02-15-2023 End: 02-15-[address] Saima Perez Work Phone: [facility] Work Phone: Start: 02-08-2023 End: 02-08-[address] Saima Perez Work Phone: [facility] Work Phone: Start: 02-02-2023 End: 02-02-[address] Aquilino Briggs Work Phone: [facility] Work Phone: Start: 01-27-2023 End: 01-27-[address] Aquilino Briggs Work Phone: [facility] Work Phone: Start: 01-27-2023 End: 01-27-[address] Aquilino Briggs Work Phone: [facility] Work Phone: Start: 01-18-2023 End: 01-18-[address] Aquilino Briggs Work Phone: [facility] Work Phone: Start: 01-13-2023 End: 01-13-[address] Aquilino Briggs Work Phone: [facility]Laboratory, OP Pavilion Start: 01-05-2023 End: 01-05-[address] Aquilino Briggs Work Phone: [facility] Work Phone: Start: 12-08-2022 End: 12-08-[address] Aquilino Briggs Work Phone: [facility] Work Phone: Start: 11-17-2022 End: 11-17-[address] Aquilino Briggs Work Phone: [facility] Work Phone: Start: 11-10-2022 End: 11-10-[address] Aquilino Briggs Work Phone: [facility] Work Phone: Start: 10-13-2022 End: 10-13-[address] Aquilino Briggs Work Phone: [facility] Work Phone: Start: 09-13-2022 End: 09-13-[address] Aquilino Briggs Work Phone: [facility] Work Phone: Start: 09-13-2022 End: 09-13-[address] Aquilino Briggs Work Phone: [facility] Start: 04-11-2018 End: 04-12-2018 Patient encounter procedure [facility] Start: 04-11-2018 End: 04-12-2018 Patient encounter procedure Samreen Sukhjinder Facility:[facility] Procedures Date Procedure Procedure Detail Performing Clinician Start: 04-20-2023 CT angiography of ch est with contrast Dr. Saima Perez Work Phone: Start: 03-28-2023 Ultrasound scan for growth Dr. Saima Perez Work Phone: Start: 03-25-2023 Group B Streptococcu s Culture Dr. Saima Perez Work Phone: Start: 02-28-2023 Ultrasound scan for growth Dr. Saima Perez Work Phone: Start: 01-27-2023 Ultrasound scan for growth Dr. Aquilino Briggs Work Phone: Start: 11-17-2022 Transvaginal obst[address] ic ultrasonography Dr. Aquilino Briggs Work Phone: Start: 11-17-[address] Aquilino Briggs Work Phone: Start: 05-01-2019 Iadna chlamydia trac homatis amplified probe tq Julian Jairon History of No histor y of surgery Julian Wyatt Urine culture Dr. Aquilino delaney Work Phone: Plan of Treatment Date Care Activity Detail Author Start: 04-21-2023 Patient discharge [facility] Start: 04-19-2023 End: 04-20-2023 Consultation [facility] Start: 04-19-2023 Administration of medication [facility] Start: 04-19-2023 Application of ice c ollar, cap or bag [facility] Start: 04-19-2023 Catheterization of vein [facility] Start: 04-19-2023 Introduction of urinary catheter [facility] Start: 04-19-2023 Measuring intake and output [facility] Start: 04-19-2023 Notification of physician [facility] Start: 04-19-2023 Procedure discontinued [facility] Start: 04-19-2023 Provision of activity privileges [facility] Start: 04-19-2023 Vital signs measurements [facility] Start: 04-19-2023 [facility] Start: 04-19-2023 Admission procedure [facility] Start: 09-13-2022 Liquid based cervica l cytology screening [facility] Path report.final Dx Spec [facility] Patient referral [facility] Work Phone: Ultrasound scan for growth [facility] Immunizations Immunization Date Immunization Notes Care Provider Fa angel 02-15-2023 tetanus toxoid, redu ulisses diphtheria toxoid, and acellular pertussis vaccine, adsorbed Dr. Saima Perez Work Phone: [facility] Payers Date Payer Category Payer Self-pay [id number] 2024 Unknown [id number] 2018 Unknown 2018 Private Health Insurance 1995 Unknown [id number] 1970 Unknown [id number] Private Health Insurance [employer] [id number] Unknown DENNY [id number] Unknown DO NOT USE 2020 [id number] Unknown [facility] [id number] Unknown [id number] Unknown [id number] Unknown [id number] Social History Date Type Detail Facility - - [address] Work Phone: Start: 09-13-2022 End: 04-19-2023 Tobacco smoking status NHIS Unknown if ever smoked [facility] Start: 1995 Sex Assigned At Female [facility] Goals Date Patient Goal Desired Activity /State Functional Status Date Assessment Result Facility NEGATED: Highlighted row Functional performance Functional status health issues are not documented Disease [place] [address] [employer] Work Phone: Mental Status Date Assessment Result Facility NEGATED: Highlighted row Cognitive function [Interpretation] Cognitive status health issues are not documented Disease [address] Work Phone: Clinical Notes 07-21-2020 to 04-21-2023 Note Date & Type Note Facility 04-21-2023 Progress note Note Date/Time April 21, 2023 7 :39am [facility] Medical Records Department [address] [place] [address] Progress Note - OBGYN 04/21/23 0737 MR#: [id number] Acct: [id number] Name: AMRIT LARA Rep #:[id number] : 1995 27 From: Sadie Beck NP INTERNET SECURITY SPECIALIST-C PCP: Dr. Saima Perez MD Status:ADM IN [id number] Subjective Subjective Patient doing well without complaints. Tolerating PO. Ambulating and voiding without difficulty. Feeding well. Denies chest pain, shortness of breath, calf pain/swelling, fevers, chills, lightheadedness. Objective Data Objective Data Vital Signs: Vital Signs Temp Pulse Resp BP Pulse Ox O2 Del Method 99.4 F H 90 14 118/71 97 Room Air 04/21/23 02:20 04/21/23 02:20 04/21/23 02:20 04/21/23 02:20 04/21/23 02:20 04/21/23 02:20 Oxygen Delivery Method Room Air Weight: 233 lb 11.04 oz Body Mass Index (BMI) 37.7 Intake & Output: Intake and Output for Last 24 Hours 04/19/23 04/20/23 04/21/23 23:59 23:59 23:59 Intake Total 3523.33 / 3523.33 1000 / 1000 Output Total 1580 / 1680 1000 / 1000 Balance 1943.33 / 1843.33 0 / 0 Lab / Micro Data 04/20/23 03:50 04/20/23 03:50 Physical Exam Const alert and oriented x3 HEENT normocephalic Eyes PERRL Neck full ROM Resp normal respiratory effort GI soft to palpation GI Narrative: FF below U Assessment & Plan (1) Vaginal delivery: COMMENT: KW IOL 41.0 Girl Jabier (2) Near syncope: COMMENT: stable. Normal labs, CT, EKG PLAN: Plan s/p PPD # 2 1. routine post delivery care 2. breast feeding- support given 3. rh positive 4. rubella immune 5. home today 04/21/23 0739 <Electronically signed by Sadie Beck NP INTERNET SECURITY SPECIALIST-C> Cosigner Signature (if applicable): CC: ~ Signed [facility] Work Phone: 1(919) 128-455311-08-2023 Progress note Author Vinod Shetty [facility] April 20, 2023 10:06am Note Date/Time April 20, 2023 1 0:06am [facility] Medical Records Department [address] [place] [address] Progress Note - Hospitalist 04/20/23 1004 MR#: [id number] Acct: [id number] Name: AMRIT LARA Rep #:[id number] : 1995 27 From: Vinod Shetty DO PCP: Dr. Saima Perez MD Status:ADM IN Location: [id number] Hospitalist Note Follow-up for chest pain Subjective: Patient feeling well. States that chest pain is doing better. States that she when she got up yesterday she was experiencing chest pain that was midsternal going up into her neck. Did not radiate elsewhere. Vitals: Blood pressure 131/83, pulse 105, respirations 18, temp is 36.6 Exam: Patient resting complaint bed. No respiratory distress. No conversational dyspnea. Nontoxic. Assessment and plan 1. Chest pain: Atypical. Noncardiac, not pulmonary. EKG was reviewed and showed sinus tachycardia without any acute process. CTA of the chest was unremarkable for any pulmonary embolism or infiltrate. No additional work-up isnecessary. 2. Leukocytosis: Has been ongoing since the seventh. Likely reactive. She in the absence of any fever would not do any additional work-up at this time. Patient medically stable for discharge. The hospital service will sign off. Please do not hesitate to reconsult if new issues arise. Visit Charges Inpatient E&M: 94553 Subs Hosp L1 11/08/23 1006 <Electronically signed by Vinod Shetty DO> Cosigner Signature (if applicable): CC: ~ Signed [facility] Work Phone: 1(344) 982-571611-08-2023 Progress note Author Saide Beck [facility] April 20, 2023 7:46am Note Date/Time April 20, 2023 7 :47am [facility] Medical Records Department [address] [place] [address] Progress Note - OBGYN 04/20/23 0742 MR#: [id number] Acct: [id number] Name: AMRIT LARA Rep #:[id number] : 1995 From: Sadie Beck NP INTERNET SECURITY SPECIALIST-C PCP: Dr. Saima Perez MD Status:ADM IN Location: [place] [address] Subjective Subjective Patient doing well without complaints since near syncope last pm. Tolerating PO. Ambulating without dizziness and voiding without difficulty. Feeding well. Denies chest pain, shortness of breath, calf pain/swelling, fevers, chills, lightheadedness. Continues with IV fluids. Objective Data Objective Data Vital Signs: Vital Signs Temp Pulse Resp BP Pulse Ox O2 Del Method 98.7 F 101 H 15 126/81 H 97 Room Air 04/20/23 03:00 04/20/23 06:16 04/20/23 03:00 04/20/23 03:00 04/20/23 03:00 04/20/23 03:00 Oxygen Delivery Method Room Air Weight: 233 lb 11.04 oz Body Mass Index (BMI) 37.7 Intake & Output: Intake and Output for Last 24 Hours 04/18/23 04/19/23 04/20/23 23:59 23:59 23:59 Intake Total 3523.33 / 3523.33 1000 / 1000 Output Total 1580 / 1680 1000 / 1000 Balance 1943.33 / 1843.33 0 / 0 Lab / Micro Data 04/20/23 03:50 04/20/23 03:50 Labs: Laboratory Results - last 24 hr 04/19/23 07:50: WBC 11.5 H, RBC 3.83 L, Hgb 10.8 L, Hct 33.4 L, MCV 87.2, MCH 28.2, MCHC 32.3, RDW Std Deviation 47.0 H, RDW Coeff of Chin 15.0 H, Plt Count 237, MPV 11.2, Immature Gran % (Auto) 0.600, Neut % (Auto) 73.3 H, Lymph % (Auto) 19.2, Yates % (Auto) 6.0, Eos % (Auto) 0.6, Baso % (Auto) 0.3, Absolute Neuts (auto) 8.4 H, Absolute Lymphs (auto) 2.21, Nucleated RBC % 0, Syphilis Total Ab Non-reactive, Blood Type A POSITIVE, Antibody Screen NEGATIVE 04/19/23 23:50: WBC 12.6 H, RBC 3.35 L, Hgb 9.3 L, Hct 29.4 L, MCV 87.8, MCH 27.8, MCHC 31.6 L, RDW Std Deviation 47.0 H, RDW Coeff of Chin 14.9 H, Plt Count 207, MPV 11.2, Immature Gran % (Auto) 0.700, Neut % (Auto) 81.0 H, Lymph % (Auto) 12.4 L, Yates % (Auto) 5.5, Eos % (Auto) 0.2, Baso % (Auto) 0.2, Absolute Neuts (auto) 10.2 H, Absolute Lymphs (auto) 1.56, Nucleated RBC % 0, Troponin I High Sens 5 04/20/23 03:50: WBC 13.1 H, RBC 3.29 L, Hgb 9.2 L, Hct 29.1 L, MCV 88.4, MCH 28.0, MCHC 31.6 L, RDW Std Deviation 47.8 H, RDW Coeff of Chin 15.1 H, Plt Count 198, MPV 11.2, Immature Gran % (Auto) 0.500, Neut % (Auto) 77.9 H, Lymph % (Auto) 14.8 L, Yates % (Auto) 6.3, Eos % (Auto) 0.2, Baso % (Auto) 0.3, Absolute Neuts(auto) 10.2 H, Absolute Lymphs (auto) 1.94, Nucleated RBC % 0, Sodium 138, Potassium 4.0, Chloride 109 H, Carbon Dioxide 22.0, Anion Gap 7, BUN 10, Creatinine 0.75, Estim Creat Clear Calc 104.54, Est GFR (MDRD) Af Amer 118, Est GFR (MDRD) Non-Af 97, BUN/Creatinine Ratio 13.4, Glucose 97, Calcium 8.7 Radiography Diagnostic Testing: Radiology Impression Chest CTA 04/20/23 00:07 IMPRESSION: 1. No pulmonary embolus or acute intrathoracic abnormality. 2. Benign subcentimeter hepatic hemangioma. No additional follow-up recommended at this time. Electronically Signed: Gareth Purvis MD at 1:51 EST , Physical Exam Const alert and oriented x3 HEENT normocephalic Eyes PERRL Neck full ROM Resp normal respiratory effort GI soft to palpation GI Narrative: FF below U Assessment & Plan (1) Vaginal delivery: COMMENT: KW IOL 41.0 Girl (2) Near syncope: COMMENT: stable. Normal labs, CT, EKG (3) Tachycardia with heart rate 100-120 beats per minute: PLAN: Plan s/p PPD # 1 1. routine post delivery care 2. breast feeding- support given 3. rh positive 4. rubella immune 5. will continue to monitor and IV fluids and consult with Dr Parks for further management. 04/20/23 0746 <Electronically signed by Sadie Beck NP INTERNET SECURITY SPECIALISTMadeleineC> Cosigner Signature (if applicable): CC: ~ Signed [facility] Work Phone: 1(317) 835-439611-08-2023 Consult note Author Alton Larkin [facility] April 20, 2023 6:46am Note Date/Time April 20, 2023 1 2:53am [facility] Medical Records Department [address] [place] [address] [place] [address] Consultation - Hospitalist 04/20/23 0050 MR#: [id number] Acct: [id number] Name: AMRIT LARA Rep #:[id number] : 1995 27 From: Alton Childress DO PCP: Dr. Saima Perez MD Status:ADM IN Location: [id number] Assessment & Plan Assessment/Plan (1) Near syncope: PLAN: Plan 1. Near syncopal event shortly after delivery likely related to fluid loss - continue lactated ringer bolus and give additional liter of lactated ringer 150 cc/h. In an effort to be thorough we will check a troponin and a follow-up EKG to ensure improvement in her vital signs and her tracings. 2. G1-P1 with patient having a normal vaginal delivery on the evening of 04/19/2023 precipitating #1 - Continue supportive care and monitor for improvement. 3. Depression with anxiety - Stable at this time. 4. DVT prophylaxis - As per MORTGAGE ANALYST team. Total time: Approximately 55 minutes. HPI Consult Data Date of Consult: 04/20/23 HPI Narrative Reason for Consultation: Hypotension and near syncope with standing after delivery. HPI Narrative: AMRIT LARA, is a 27 F with a past medical history of depression with anxiety and occasional headaches who is a G1-P1 with patient having underwent a vaginal delivery with a healthy baby around 7 PM on the evening of 04/19/2023. Shortly thereafter she tried to stand up and had a near syncopal event with chest pressure and shortness of breath along with a heart rate of ~140 bpm prompting hospitalist consultation. Her EKG showed sinus tachycardia with no obvious acute ischemia and she denied specific chest pain or shortness of breathat rest. She denies a history of similar previous episodes and has no known cardiac history but she does admit to history of coronary artery disease and bypass in her maternal grandfather who was at an advanced age when he was diagnosed. She was already being treated with a 500 cc bolus of lactated Ringer's which was followed by lactated Ringer's 150 cc/h for 1 L with a recheckof her EKG and troponin to ensure there was no acute cardiac disease. She denies associated fever, chills, nausea, vomiting, ambreen syncope or rash - but she does admit to back pain since her delivery and she has numerous antibiotic allergies including penicillins, cephalosporins and trimethoprim sulfamethoxazole (which usually cause a rash on her hands and belly). Her bloodtype is a positive and her hemoglobin was stable at 9.3 g/dL. Thank you very much for allowing us to participate in the care of your patient. [facility] Medical History Anxiety Depression Headache Home Medications vitamin#30 30 mg iron-10 mg iron-folic acid 1 mg-omg3 capsule 1 cap PO .QD 02/08/23 [History Last Taken 04/19/23 06:00] famotidine 20 mg tablet (Pepcid AC) 20 mg PO DAILY heartburn 04/19/23 [History Last Taken 04/18/23 21:00] loratadine 10 mg tablet (Claritin) 10 mg PO DAILY enviromental allergies 04/19/23 [History Last Taken 04/18/23 21:00] Allergy/AdvReac Type Severity Reaction Status Date / Time amoxicillin Allergy Mild Hives Verified 04/19/23 07:32 sulfamethoxazole Allergy Mild Hives Verified 04/19/23 07:32 [From Bactrim] trimethoprim [From Bactrim] Allergy Mild Hives Verified 04/19/23 07:32 Penicillins Allergy Hives Verified 04/19/23 07:32 Family History Grandmother Breast cancer, Onset Age: 60 Mother Diabetes Grandfather Cancer Surgical History History of surgery Social History adopted: No household members: spouse current occupational status: employed current occupation: [employer] current occupational exposures/hazards: No pets and animals: Yes pets and animals: dog(s) history of recent travel: Yes ([place]) out of state: Yes sexually active: Yes Smoking Status: Never smoker alcohol intake: never substance use type: does not use caffeine: Yes Type: coffee Number of servings: 1 seatbelt use: always do you feel safe at home: Yes additional social history: Spouse- [employer] ROS ROS Narrative Review of systems: Constitutional: Patient denies fever or chills Eyes: Patient denies visual changes ENT: Patient denies dysphagia or sore throat Cardiovascular: Patient admits to mild intermittent chest discomfort with exertion but none at rest Gastrointestinal: Patient denies nausea or vomiting at this time Musculoskeletal: Patient does admit to back pain that is made worse with movement Genitourinary: Patient denies dysuria or hematuria Neurologic: Patient denies motor or sensory focal neurologic deficits 14 point review systems otherwise negative except for positives noted above in HPI. Physical Exam Const alert, oriented x3, no apparent distress, average body habitus, healthy appearing and well nourished General Appearance: cooperative HEENT normocephalic, head/scalp atraumatic, hearing grossly normal bilaterally, moist oral mucous membranes, oropharynx normal and dentition normal Eyes PERRL, EOMs intact bilaterally and conjunctivae normal Neck no lymphadenopathy, supple, no JVD and no carotid bruits Resp normal respiratory effort, no retractions, no use of accessory muscles and clearto auscultation bilaterally Cardio regular rate, regular rhythm, S1 normal heart sound, S2 normal heart sound, no murmurs, no rub, no gallops, no clicks and no JVD GI normal to inspection, nondistended, normoactive bowel sounds, soft to palpation,non-tender and non-distended Extremity normal to inspection, full ROM and no clubbing, cyanosis or edema Skin Skin Narrative: Patient has no evidence of rash. Neuro oriented x3, CN's II-XII intact bilaterally, moves all extremities, no focal motor deficits and no sensory deficits noted Sensorium / Orientation: awake, alert, oriented to person, oriented to place andoriented to time Speech: speech normal Motor Exam: strength 5/5 throughout Psych affect normal Medical Records Data Attestation: I reviewed the patient's medical records Lab / Micro Data Attestation: I reviewed the patient's lab results. 04/20/23 03:50 04/20/23 03:50 Labs: Laboratory Results - last 24 hr 04/19/23 07:50: WBC 11.5 H, RBC 3.83 L, Hgb 10.8 L, Hct 33.4 L, MCV 87.2, MCH 28.2, MCHC 32.3, RDW Std Deviation 47.0 H, RDW Coeff of Chin 15.0 H, Plt Count 237, MPV 11.2, Immature Gran % (Auto) 0.600, Neut % (Auto) 73.3 H, Lymph % (Auto) 19.2, Yates % (Auto) 6.0, Eos % (Auto) 0.6, Baso % (Auto) 0.3, Absolute Neuts (auto) 8.4 H, Absolute Lymphs (auto) 2.21, Nucleated RBC % 0, Syphilis Total Ab Non-reactive, Blood Type A POSITIVE, Antibody Screen NEGATIVE 04/19/23 23:50: WBC 12.6 H, RBC 3.35 L, Hgb 9.3 L, Hct 29.4 L, MCV 87.8, MCH 27.8, MCHC 31.6 L, RDW Std Deviation 47.0 H, RDW Coeff of Chin 14.9 H, Plt Count 207, MPV 11.2, Immature Gran % (Auto) 0.700, Neut % (Auto) 81.0 H, Lymph % (Auto) 12.4 L, Yates % (Auto) 5.5, Eos % (Auto) 0.2, Baso % (Auto) 0.2, Absolute Neuts (auto) 10.2 H, Absolute Lymphs (auto) 1.56, Nucleated RBC % 0, Troponin I High Sens 5 Charges/Coding Visit Charges Inpatient E&M: 13486 Init Hosp L2 04/20/23 0646 <Electronically signed by Alton Ramirez DO> Cosigner Signature (if applicable): CC: YVES Baumann; Dr. Alton Ramirez DO; Dr. Saima Perez MD~ Signed [facility] Work Phone: 1(120) 649-571811-07-2023 Procedure [facility] 04-19-2023 Progress note Author Savana Baumann [facility] April 19, 2023 3:42pm Note Date/Time April 19, 2023 3 :43pm [facility] Medical Records Department [address] [place] [id number] Progress Note 04/19/23 1541 MR#: [id number] Acct: [id number] Name: AMRIT LARA Rep #:[id number] : 1995 27 From: Savana Baumann CNM PCP: Dr. Saima Perez MD Status:ADM IN Location: NZ788-0 Progress Note comfortable with epidural current tracing: FHT: 135 Moderate variability reactive occasional variables and early decelerations category II tracing [place]: 3-5 Contractions Membranes: Ruptured, meconium stained fluid SVE: /-1 A/P: Continue with position changes Titrate pitocin per protocol Epidural per anesthesia Anticipate Dr Jama aware of plan and agrees with plan of care Assessment & Plan Assessment/Plan (1) Encounter for induction of labor: (2) Marginal insertion of umbilical cord: (3) History of trauma: (4) Supervision of high risk , antepartum: (5) : QUALIFIERS: Weeks of gestation: 40 weeks Qualified Code(s): Z3A.40 - 40 weeks gestation of Multi Select Codes Urinary/Genital Urinary/Genital CPT Codes: No Charge 04/19/23 1542 <Electronically signed by Savana Baumann CNM> Savana Baumann CNM Cosigner Signature (if applicable): CC: ~ Signed [facility] Work Phone: 1(478) 452-586611-07-2023 History and physical note Author Savana Baumann [facility] April 19, 2023 9:17am Note Date/Time April 19, 2023 9 :18am [facility] Medical Records Department [address] [place] [id number] H&P Exam - MORTGAGE ANALYST 04/19/23 0915 MR#: [id number] Acct: [id number] Name: AMRIT LARA Rep #:[id number] : 1995 27 From: Savana Baumann CNM PCP: Dr. Saima Perez MD Status:ADM IN Location: [id number] HPI - General General Date of Admission: 04/19/23 Date of Service: 04/19/23 HPI Narrative AMRIT LARA, is a 27 F 41.0 weeks who presents for induction of labor for 41.0 week gestation Maternal Data Information TRISTIAN Calculator Estimated Delivery Date Method Current WG Current Estimate 04/12/23 LMP (Certain) 41w 0d Final TRISTIAN: 04/12/23 Final TRISTIAN Source: US >20 weeks Gestational age: 41.0 PFSH PFSH Medical History (Updated 04/19/23 @ 09:17 by Savana Baumann CNM) Anxiety Depression Headache Home Medications vitamin#30 30 mg iron-10 mg iron-folic acid 1 mg-omg3 capsule 1 cap PO .QD 02/08/23 [History Last Taken 04/19/23 06:00] famotidine 20 mg tablet (Pepcid AC) 20 mg PO DAILY heartburn 04/19/23 [History Last Taken 04/18/23 21:00] loratadine 10 mg tablet (Claritin) 10 mg PO DAILY enviromental allergies 04/19/23 [History Last Taken 04/18/23 21:00] Allergy/AdvReac Type Severity Reaction Status Date / Time amoxicillin Allergy Mild Hives Verified 04/19/23 07:32 sulfamethoxazole Allergy Mild Hives Verified 04/19/23 07:32 [From Bactrim] trimethoprim [From Bactrim] Allergy Mild Hives Verified 04/19/23 07:32 Penicillins Allergy Hives Verified 04/19/23 07:32 Family History Grandmother Breast cancer, Onset Age: 60 Mother Diabetes Grandfather Cancer Surgical History (Updated 04/19/23 @ 08:25 by Mary Ivey) History of surgery Social History adopted: No household members: spouse current occupational status: employed current occupation: [employer] current occupational exposures/hazards: No pets and animals: Yes pets and animals: dog(s) history of recent travel: Yes ([place]) out of state: Yes sexually active: Yes Smoking Status: Never smoker alcohol intake: never substance use type: does not use caffeine: Yes Type: coffee Number of servings: 1 seatbelt use: always do you feel safe at home: Yes additional social history: Spouse- [place]- Construction History 1 Elective abortions Hx Para 0 Spontaneous abortions Hx # Term Pregnancies Ectopic pregnancies Hx # Pregnancies Multiple births # of living children Visit Details Expected Delivery Route/Plan Labor Preferences- CB/BF classes: encourage labor support person: [place] labor intervention preferences: [] pain management options preferred: limited photograph editor "Precious" cut cord/dad catch: yes : yes PP control planned: discussed discussed possible routes of delivery and associated risks: [] special requests: [] Plans Covid status: discussed Flu vaccine: discussed Tdap vaccine: given Rhogam: na LARC form signed: yes movement and labor precautions reviewed. Problem list reviewed and updated with the most current plan of care details and appropriate orders placed. Relevant counseling for the gestational age provided. Continue routine care and follow up unless otherwise noted in visit notes/problem list details OB Flowsheet Initial Weight: Not Recorded Date -?-?-?-?-?-?-?-?-?-?-?-?- EGA Weight BP Urine Prot -?-?-?-?-?-?-?-?-?-?-?-?- Glucose FHR FuHt Pres Dilation -?-?-?-?-?-?-?-?-?-?-?-?- Effaced St Visit Note 09/13/22 -?-?-?-?-?-?-?-?-?-?-?-?- 9w 6d 191 lb 6 oz 131/86 -?-?-?-?-?-?-?-?-?-?-?-?- 160 -?-?-?-?-?-?-?-?-?-?-?-?- SM- CRL SM- CRL 2.2cm cons with LMP 10/13/22 -?-?-?-?-?--?-?-?-?-?-?-?- 14w 1d 186 lb 4 oz 122/76 Nega tive -?-?-?-?-?-?-?-?-?-?-?-?- Negative 153 -?-?-?-?-?-?-?-?-?-?-?-?- MH-NO VB. Nausea is lessening. Reviewed PN labs 11/10/22 -?-?-?-?-?-?-?-?-?-?-?-?- 18w 1d 187 lb 8 oz 122/79 Nega tive -?-?-?-?-?-?-?-?-?-?-?-?- Negative 150 -?-?-?-?-?-?-?-?-?-?-?-?- JV- no lof, vagi nal bleeding, or cramping + FM. has anatomy scan on11/17. 12/08/22 -?-?-?-?-?-?-?-?-?-?-?-?- 22w 1d 192 lb 110/70 Trace -?-?-?-?-?-?-?-?-?-?-?-?- Negative 150 22 -?-?-?-?-?-?-?-?-?-?-?-?- kw- +fm, no vb/c ramping. 28 week labs and US discussed and ordered. 01/05/23 -?-?-?-?-?-?-?-?-?-?-?-?- 26w 1d 199 lb 8 oz 108/73 Trac e -?-?-?-?-?-?-?-?-?-?-?-?- Negative 141 27 -?-?-?-?-?-?-?-?-?-?-?-?- JV- pt suffering with constipation. she stopped taking iron. Has a lot of sciatic nerve pain. exercises discussed. Dr. Castle info sent. encouraged miralax, fluids, dried figs and apple juice. Gct in 2 weeks. 01/18/23 -?-?-?-?-?-?-?-?-?-?-?-?- 28w 0d 205 lb 110/76 Negative -?-?-?-?-?-?-?-?-?-?-?-?- Negative 146 28 -?-?-?-?-?-?-?-?-?-?-?-?- MH-No VB, LOF. G ood FM. Feeling better overall. Nl 28 wk labs, Larc. Considering tdap. Will start Q4wk growth US for marginal cord insertion. 02/02/23 -?-?-?-?-?-?-?-?-?-?-?-?- 30w 1d 208 lb 4 oz 115/77 Nega tive -?-?-?-?-?-?-?-?-?-?-?-?- Negative 150 30 -?-?-?-?-?-?-?-?-?-?-?-?- JV- no lof, vagi nal bleeding, or dec fm. pt is unsure about tdap. questions about going to [facility] at 36 weeks. has baby shower this weekend. 02/15/23 -?-?-?-?-?-?-?-?-?-?-?-?- 32w 0d 212 lb 4 oz 120/82 Nega tive -?-?-?-?-?-?-?-?-?-?-?-?- Negative 142 31 -?-?-?-?-?-?-?-?-?-?-?-?- MH-No VB, LOF. G ood FM. Discussed/reassured concerning twice heart palp while sitting, resolved w movement. 03/03/23 -?-?-?-?-?-?-?-?-?-?-?-?- 34w 2d 216 lb 114/72 Negative -?-?-?-?-?-?-?-?-?-?-?-?- Negative 140 34 -?-?-?-?-?-?-?-?-?-?-?-?- SM- no vb lof go od fm no regular ctx discussed labor support, gave preferences worksheet 03/14/23 -?-?-?-?-?-?-?-?-?-?-?-?- 35w 6d 221 lb 6 oz 110/74 Nega tive -?-?-?-?-?-?-?-?-?-?-?-?- Negative 140 36 -?-?-?-?-?-?-?-?-?-?-?-?- SM- no vb lof go od fm noregular ctx 03/25/23 -?-?-?-?-?-?-?-?-?-?-?-?- 37w 3d 225 lb 122/79 Negative -?-?-?-?-?-?-?-?-?-?-?-?- Negative 135 38 -?-?-?-?-?-?-?-?-?-?-?-?- kw-no vb/lof/ctx . good fm. GBS today. deferred VE today. 03/30/23 -?-?-?-?-?-?-?-?-?-?-?-?- 38w 1d 228 lb 2 oz 113/78 Nega tive -?-?-?-?-?-?-?-?-?-?-?-?- Negative 145 37 -?-?-?-?-?-?-?-?-?-?-?-?- JV- no lof ,vagi nal bleeding, or dec fm. [id number] normal ALEXI 2 days ago. marginal insertion 1.5 cm. we discussed uterine massage and low tension on cord at delivery 04/07/23 -?-?-?-?-?-?-?-?-?-?-?-?- 39w 2d 231 lb 4 oz 124/93 135/88 Negative -?-?-?-?-?-?-?-?-?-?-?-?- Negative 140 39 Cephalic 1 .5 -?-?-?-?-?-?-?-?-?-?-?-?- 50 -2 SM- no vb lof good fm no regular ctx reveiwed preeclampsia precautions some intermittent BUSTILLOS but goes away 04/12/23 -?-?-?-?-?-?-?-?-?-?-?-?- 40w 0d 229 lb 6 oz 131/84 Nega tive -?-?-?-?-?-?-?-?-?-?-?-?- Negative 144 Cephalic 3 -?-?-?-?-?-?-?-?-?-?-?-?- 50 -2 MH:No VB, LOF. Some cramping, no regular CTX. Dec FM:reactive NST 04/15/23 -?-?-?-?-?-?-?-?-?-?-?-?- 40w 3d 233 lb 4 oz 130/82 Nega tive -?-?-?-?-?-?-?-?-?-?-?-?- Negative 145 40 Cephalic 3 -?-?-?-?-?-?-?-?-?-?-?-?- 60 -2 KW- no vb/ lof/ctx. good fm. membranes swept. IOL set up NST FHR Rate Baby A Baseline: 140 Variability:: Moderate Accelerations:: 15 x 15 Decelerations:: None NST Reactive:: Yes FHR Category:: Category I Uterine Activity:: irregular ROS Constitutional Constitutional: Denies change in weight, fatigue, fever(s), headache(s), poor appetite or weakness Eyes Eyes: Denies blurry vision, change in vision, floaters, seeing flashes or spots in vision ENT HEENT: Denies dizziness, headache(s), loss taste/smell or sore throat Cardiovascular Cardiovascular: Denies chest pain, dizziness, dyspnea, irregular heart rhythm, lightheadedness, palpitations or rapid heart rate Respiratory/Chest Respiratory/Chest: Denies change in mental status, chest tightness, cough, dyspnea or breast pain Gastrointestinal Gastrointestinal: Denies anorexia, chewing difficulty, constipation, diarrhea or weight changes Genitourinary Genitourinary: Denies difficulty urinating, dysuria, flank pain, genital pain, urinary frequency or urinary urgency Musculoskeletal Musculoskeletal: Denies back pain, difficulty walking, extremity pain, joint pain, muscle cramps or muscle weakness Integumentary Integumentary: Denies lesions or unusual bruising Neurologic Neurologic: Denies abnormal movements, abnormal speech, dizziness, numbness, seizure-like activity, syncope or weakness Psychiatric Psychiatric: Denies behavioral changes, change in appetite, confusion, depression, homicidal ideation, suicidal ideation or suicidal thoughts Endocrine Endocrinology: Denies excessive sweating, polydipsia or polyuria Hematologic/Lymphatic Hematologic/Lymphatic: Denies anemia Allergic/Immunologic Allergic/Immunologic: Denies itchy eyes, lip swelling, throat swelling, tongue swelling or wheezing Vital Signs Vital Signs Vital Signs: 04/19/23 07:45 04/19/23 07:45 04/19/23 08:55 Temperature Temperature Source Pulse Rate 108 H Blood Pressure 128/80 H 128/80 H BP Systolic 128 128 BP Diastolic 80 80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 Status:Active Family history of Irregular heart beat(427.9, I49.9) Status:Active Family history of cerebrovas cular accident (CVA)(V17.1, Z82.3) Status:Active Family history of malignant neoplasm of thyroid(V16.8, Z80.8) Status:Active Family history of malignant neoplasm of breast(V16.3, Z80.3) Status:Active Family history of myocardial infarction(V17.3, Z82.49) Status:Active Mother Name Dates Details Family history of diabetes m ellitus(V18.0, Z83.3) Status:Active Relationship Condition Age at Onset Recorded Date/T satish grandmother Malignant neoplasm of breast 60 mother Diabetes mellitus Unknown grandfather Malignant neoplasm Unknown Advance Directives No Advanced Directives Records Found Advance Directive Response Recorded Date/ Time Living Will No April 19 8:17am Power of Gill Box Tender No April 19, 2023 8:17am Chief Complaint and Reason for Visit Chief Complaint NOB LMP 07/06 Reason for Visit History of trauma Supervision of high risk , antepartum Chief Complaint 13 wk ob 18 WK OB 20 WEEK 22 WK OB 26 WK OB 28 WK OB/GLUCOSE GROWTH 30 WK OB Reason for Visit History of trauma Supervision of high risk , antepartum History of trauma Supervision of high risk , antepartum History of trauma Marginal insertion of umbilical cord Supervision of high risk , antepartum History of trauma Marginal insertion of umbilical cord Supervision of high risk , antepartum History of trauma Marginal insertion of umbilical cord Supervision of high risk , antepartum History of trauma Marginal insertion of umbilical cord Supervision of high risk , antepartum Chief Complaint 22 WK OB 26 WK OB 28 WK OB/GLUCOSE GROWTH 30 WK OB Adjustment adjustment 32 WK OB adjustment GROWTH 34 WK OB ADJUSTMENT 36 WK OB ADJUSTMENT 37 WK OB PLACENTA F/U Back pain Reason for Visit History of trauma Marginal insertion of umbilical cord Supervision of high risk , antepartum History of trauma Marginal insertion of umbilical cord Supervision of high risk , antepartum History of trauma Marginal insertion of umbilical cord Supervision of high risk , antepartum History of trauma Marginal insertion of umbilical cord Supervision of high risk , antepartum Back pain Segmental and somatic dysfunction of cervical region Segmental and somatic dysfunction of lumbar region Segmental and somatic dysfunction of sacral region Segmental and somatic dysfunction of thoracic region Back pain Segmental and somatic dysfunction of cervical region Segmental and somatic dysfunction of lumbar region Segmental and somatic dysfunction of sacral region Segmental and somatic dysfunction of thoracic region History of trauma Marginal insertion of umbilical cord Supervision of high risk , antepartum Back pain Segmental and somatic dysfunction of cervical region Segmental and somatic dysfunction of sacral region Segmental and somatic dysfunction of thoracic region Back pain History of trauma Marginal insertion of umbilical cord Segmental and somatic dysfunction of cervical region Segmental and somatic dysfunction of lumbar region Segmental and somatic dysfunction of sacral region Segmental and somatic dysfunction of thoracic region Supervision of high risk , antepartum Back pain Segmental and somatic dysfunction of cervical region Segmental and somatic dysfunction of sacral region Segmental and somatic dysfunction of thoracic region Back pain History of trauma Marginal insertion of umbilical cord Segmental and somatic dysfunction of cervical region Segmental and somatic dysfunction of lumbar region Segmental and somatic dysfunction of sacral region Segmental and somatic dysfunction of thoracic region Supervision of high risk , antepartum Back pain Segmental and somatic dysfunction of cervical region Segmental and somatic dysfunction of sacral region Segmental and somatic dysfunction of thoracic region Back pain History of trauma Marginal insertion of umbilical cord Segmental and somatic dysfunction of cervical region Segmental and somatic dysfunction of lumbar region Segmental and somatic dysfunction of sacral region Segmental and somatic dysfunction of thoracic region Supervision of high risk , antepartum Back pain Segmental and somatic dysfunction of cervical region Segmental and somatic dysfunction of sacral region Segmental and somatic dysfunction of thoracic region Chief Complaint 22 WK OB 26 WK OB 28 WK OB/GLUCOSE GROWTH 30 WK OB Adjustment adjustment 32 WK OB adjustment GROWTH 34 WK OB ADJUSTMENT 36 WK OB ADJUSTMENT 37 WK OB PLACENTA F/U Back pain 38 WK OB Reason for Visit History of trauma Marginal insertion of umbilical cord Supervision of high risk , antepartum History of trauma Marginal insertion of umbilical cord Supervision of high risk , antepartum History of trauma Marginal insertion of umbilical cord Supervision of high risk , antepartum History of trauma Marginal insertion of umbilical cord Supervision of high risk , antepartum Back pain Segmental and somatic dysfunction of cervical region Segmental and somatic dysfunction of lumbar region Segmental and somatic dysfunction of sacral region Segmental and somatic dysfunction of thoracic region Back pain Segmental and somatic dysfunction of cervical region Segmental and somatic dysfunction of lumbar region Segmental and somatic dysfunction of sacral region Segmental and somatic dysfunction of thoracic region History of trauma Marginal insertion of umbilical cord Supervision of high risk , antepartum Back pain Segmental and somatic dysfunction of cervical region Segmental and somatic dysfunction of sacral region Segmental and somatic dysfunction of thoracic region Back pain History of trauma Marginal insertion of umbilical cord Segmental and somatic dysfunction of cervical region Segmental and somatic dysfunction of lumbar region Segmental and somatic dysfunction of sacral region Segmental and somatic dysfunction of thoracic region Supervision of high risk , antepartum Back pain Segmental and somatic dysfunction of cervical region Segmental and somatic dysfunction of sacral region Segmental and somatic dysfunction of thoracic region Back pain History of trauma Marginal insertion of umbilical cord Segmental and somatic dysfunction of cervical region Segmental and somatic dysfunction of lumbar region Segmental and somatic dysfunction of sacral region Segmental and somatic dysfunction of thoracic region Supervision of high risk , antepartum Back pain Segmental and somatic dysfunction of cervical region Segmental and somatic dysfunction of sacral region Segmental and somatic dysfunction of thoracic region Back pain History of trauma Marginal insertion of umbilical cord Segmental and somatic dysfunction of cervical region Segmental and somatic dysfunction of lumbar region Segmental and somatic dysfunction of sacral region Segmental and somatic dysfunction of thoracic region Supervision of high risk , antepartum Back pain Segmental and somatic dysfunction of cervical region Segmental and somatic dysfunction of sacral region Segmental and somatic dysfunction of thoracic region Back pain History of trauma Marginal insertion of umbilical cord Supervision of high risk , antepartum Chief Complaint 26 WK OB 28 WK OB/GLUCOSE GROWTH 30 WK OB Adjustment adjustment 32 WK OB adjustment GROWTH 34 WK OB ADJUSTMENT 36 WK OB ADJUSTMENT 37 WK OB PLACENTA F/U Back pain 38 WK OB Back pain 39 WK OB 40 WK OB 41 WK OB VAGINAL DELIVERY INDUCTION VAGINAL DELIVERY VAGINAL DELIVERY VAGINAL DELIVERY Reason for Visit History of trauma Supervision of high risk , antepartum History of trauma Supervision of high risk , antepartum History of trauma Supervision of high risk , antepartum Back pain Segmental and somatic dysfunction of cervical region Segmental and somatic dysfunction of lumbar region Segmental and somatic dysfunction of sacral region Segmental and somatic dysfunction of thoracic region Back pain Segmental and somatic dysfunction of cervical region Segmental and somatic dysfunction of lumbar region Segmental and somatic dysfunction of sacral region Segmental and somatic dysfunction of thoracic region History of trauma Supervision of high risk , antepartum Back pain Segmental and somatic dysfunction of cervical region Segmental and somatic dysfunction of sacral region Segmental and somatic dysfunction of thoracic region History of trauma Back pain Segmental and somatic dysfunction of cervical region Segmental and somatic dysfunction of lumbar region Segmental and somatic dysfunction of sacral region Segmental and somatic dysfunction of thoracic region Supervision of high risk , antepartum Back pain Segmental and somatic dysfunction of cervical region Segmental and somatic dysfunction of sacral region Segmental and somatic dysfunction of thoracic region History of trauma Back pain Segmental and somatic dysfunction of cervical region Segmental and somatic dysfunction of lumbar region Segmental and somatic dysfunction of sacral region Segmental and somatic dysfunction of thoracic region Supervision of high risk , antepartum Back pain Segmental and somatic dysfunction of cervical region Segmental and somatic dysfunction of sacral region Segmental and somatic dysfunction of thoracic region History of trauma Back pain Segmental and somatic dysfunction of cervical region Segmental and somatic dysfunction of lumbar region Segmental and somatic dysfunction of sacral region Segmental and somatic dysfunction of thoracic region Supervision of high risk , antepartum Back pain Segmental and somatic dysfunction of cervical region Segmental and somatic dysfunction of sacral region Segmental and somatic dysfunction of thoracic region History of trauma Back pain Supervision of high risk , antepartum Back pain Segmental and somatic dysfunction of cervical region Segmental and somatic dysfunction of sacral region Segmental and somatic dysfunction of thoracic region History of trauma Supervision of high risk , antepartum History of trauma Supervision of high risk , antepartum History of trauma Back pain Segmental and somatic dysfunction of cervical region Segmental and somatic dysfunction of lumbar region Segmental and somatic dysfunction of sacral region Segmental and somatic dysfunction of thoracic region Supervision of high risk , antepartum History of trauma Near syncope Vaginal delivery Supervision of high risk , antepartum Tachycardia with heart rate 100-120 beats per minute Additional Source Comments INFORMATION SOURCE (unrecogn ized section and content) DATE CREATED AUTHOR 05/20/2018 [facility] DATE CREATED AUTHOR AUTHOR'S ORGANIZ ATION 05/21/[address] [facility] DATE CREATED AUTHOR AUTHOR'S ORGANIZ ATION 05/04/2019 [facility] DATE CREATED AUTHOR AUTHOR'S ORGANIZ ATION 04/25/2020 [employer] DATE CREATED AUTHOR AUTHOR'S ORGANIZ ATION 07/09/2021 [facility] DATE CREATED AUTHOR AUTHOR'S ORGANIZ ATION 04/21/2025 [facility] Care Teams (unrecognized sec tion and content) Team Status: Active Member Role Status Dates Dr. Aquilino Briggs MD Family Provider Active Dr. Saima Perez MD Primary Care Provider Active Team Status: Inactive Member Role Status Dates Dr. Aquilino Briggs MD Primary Care Provider, Referrin g Provider Active Dr. Binta Jama MD Attending Provider Active Team Status: Inactive Member Role Status Dates Dr. Saima Perez MD Primary Care Provider Active Dr. Binta Jama MD Attending Provider, Referr ing Provider Active Team Status: Inactive Member Role Status Dates Dr. Aquilino Briggs MD Referring Provider Active Dr. Clarisse Parks DO Attending Provider Activ e Dr. Saima Perez MD Primary Care Provider Active Team Status: Inactive Member Role Status Dates Dr. Aquilino Briggs MD Referring Provider Active Sadie Beck INTERNET SECURITY SPECIALIST, INTERNET SECURITY SPECIALIST-C Attending Provider Active Dr. Saima Perez MD Primary Care Provider Active Team Status: Inactive Member Role Status Dates Dr. Saima Perez MD Primary Care Provider, Referrin g Provider Active Dr. Clarises Parks DO Attending Provider Activ e Team Status: Inactive Member Role Status Dates Dr. Saima Perez MD Primary Care Provider, Referrin g Provider Active Savana Baumann CNM Attending Provider Active Team Status: Inactive Member Role Status Dates Dr. Saima Perez MD Referring Provider Active Dr. Clarisse Parks DO Attending Provider Activ e Team Status: Inactive Member Role Status Dates Dr. Saima Perez MD Referring Provider Active Sadie Beck INTERNET SECURITY SPECIALIST, INTERNET SECURITY SPECIALIST-C Attending Provider Active Team Status: Inactive Member Role Status Dates Dr. Saima Perez MD Primary Care Provider Active Sadie Beck INTERNET SECURITY SPECIALIST, INTERNET SECURITY SPECIALIST-C Attending Provider, Referring Provider Active Team Status: Inactive Member Role Status Dates Savana Baumann CNM Attending Provider, Referring Pro vider Active Team Status: Inactive Member Role Status Dates Sadie Beck INTERNET SECURITY SPECIALIST, INTERNET SECURITY SPECIALIST-C Attending Provider, Referring Provider Active Dr. Saima Perez MD Primary Care Provider Active Team Status: Inactive Member Role Status Dates Sadie Beck INTERNET SECURITY SPECIALIST, INTERNET SECURITY SPECIALIST-C Attending Provider Active Dr. Saima Perez MD Primary Care Provider, Referrin g Provider Active Team Status: Inactive Member Role Status Dates Dr. Saima Perez MD Primary Care Provider, Referrin g Provider Active Dr. Madhuri Castle DC Attending Provider Active Team Status: Inactive Member Role Status Dates Dr. Saima Perez MD Primary Care Provider, Referrin g Provider Active Dr. Binta Jama MD Attending Provider Active Team Status: Inactive Member Role Status Dates Dr. Saima Perez MD Primary Care Provider Active Savana Baumann CNM Attending Provider, Referring Pro vider Active Team Status: Active Member Role Status Dates Dr. Saima Perez MD Primary Care Provider Active Savana Baumann CNM Attending Provider, Referring Pro vider Active Team Status: Inactive Member Role Status Dates Dr. Saima Perez MD Primary Care Provider, Referrin g Provider Active Sadie Beck INTERNET SECURITY SPECIALIST, INTERNET SECURITY SPECIALIST-C Attending Provider Active Team Status: Active Member Role Status Dates Dr. Saima Perez MD Primary Care Provider Active Savana Baumann CNM Admit Provider, Att ending Provider, Referring Provider, Other Provider Active Team Status: Active Member Role Status Dates Dr. Saima Perez MD Primary Care Provider Active Savana Baumann CNM Admit Provider, Ref erring Provider, Other Provider Active Dr. Alton Ramirez DO Attending Provider, Other Pr ovider Active Team Status: Active Member Role Status Dates Dr. Saima Perez MD Primary Care Provider Active Savana Baumann CNM Admit Provider, Ref erring Provider, Other Provider Active Dr. Vinod Shetty DO Other Provider Active Sadie Beck INTERNET SECURITY SPECIALIST, INTERNET SECURITY SPECIALIST-C Attending Provider Active Team Status: Inactive Member Role Status Dates Dr. Saima Perez MD Primary Care Provider Active Savana Baumann CNM Admit Provider, Att ending Provider, Referring Provider Active Dr. Vinod Shetty DO Other Provider Active Dr. Alton Ramirez DO Other Provider Active Goals (unrecognized section and content) Goals may be documented in a n alternate sectionGoals may be documented in an alternate section FOR RECORDS PERTAINING TO PATIENTS WHO ARE OR HAVE BEEN ENROLLED IN A CHEMICAL DEPENDENCY/SUBSTANCEABUSE PROGRAM, SOME INFORMATION MAY BE OMITTED. This clinical summary was aggregated from multiple sources. Caution should be exercised in using it in the provision of clinical care. This summary normalizes information from multiple sources, and as a consequence, information in this document may materially change the coding, format and clinical context of patient data. In addition, data may be omitted in some cases. CLINICAL DECISIONS SHOULD BE BASED ON THE PRIMARY CLINICAL RECORDS. [facility]. provides no warranty or guarantee of the accuracy or completeness of information in this document.
[2025-04-26 21:48] LABS: Anion Gap 12 (5-15); BUN 9 mg/dL (4-19); BUN/Creat Ratio 13.6 RATIO (10-20); Calcium,Total 10.1 mg/dL (7.6-11.0); Carbon Dioxide 22.5 mmol/L (21.0-32.0); Chloride 102 mmol/L (98-108); Estimated Creatinine Clearance 144.23 ml/min (50-250); Glucose 103 mg/dL (70-99); Potassium 3.6 mmol/L (3.3-5.1)
[2025-04-26 21:57] LABS: Red Blood Cells-Urine 0-5 SEEN /hpf (0-5); Squamous Epithelial Cells - UA 0-5 SEEN /hpf (5-10)
[2025-04-26 23:49] VITALS: BP 110/69; PULSE 79; RESP 18; TEMP 37.3; O2SAT 98
== END 2025-04-26 23:54 | disposition home or self-care (01) ==
PROVIDERS: Emergency Provider Student in an Organized Health Care Education/Training Program; PCP Family Medicine; Visit Provider Student in an Organized Health Care Education/Training Program
DX: O21.9 Vomiting of pregnancy, unspecified (principal); O26.891 Other specified pregnancy related conditions, first trimester; R82.71 Bacteriuria; O99.891 Other specified diseases and conditions complicating pregnancy; R51.9 Headache, unspecified; Z3A.11 11 weeks gestation of pregnancy
CPT/HCPCS: 80048; 81001; 85025; 96361; 96374; 99284; A4216; J2405